=== PATIENT | male | born 1940 | race Caucasian/White ===

== ENCOUNTER 2016-07-08 09:47 | Day surgery (SDC) | payer MEDICARE, OTHER ==
[~2016-07-08 09:47] MED LIST: Cefuroxime 10 MG/ML SYRINGE EYELF SCH; Lidocaine 1% PF 2 ML SDV INJECT SCH; Pilocarpine 4% Ophth Soln 15 ML Bot EYELF SCH; Proparacaine 0.5% Ophth Soln 15 ML Bottle EYEBOTH SCH; Tetracaine 0.5% 2 ML Bottle EYELF SCH
[2016-07-08] MEDS: Polymyxin B/Trimethoprim 10 ML Bottle EYELF SCH ×3 (10:50→12:24)
[2016-07-08] MEDS: Brimonidine 0.2% Ophth Soln 5 ML Bottle EYELF SCH ×3 (10:54→12:24)
[2016-07-08] MEDS: Phenylephrine 2.5% Ophth Soln 2 ML Bot EYELF SCH ×5 (10:59→12:10)
--- NOTE | 2016-07-08 11:19 | PCM.PREANE ---
Preanesthetic Assessment - Anesthesia/Transfusion/Family Hx Anesthesia History: Prior Anesthesia Without Reaction Family History of Anesthesia Reaction: No - Review of Systems General: No Symptoms Pulmonary: No Symptoms Cardiovascular: No Symptoms Gastrointestinal: No symptoms Neurological: No Symptoms Other: Reports: Diabetes, Thyroid Problems - Physical Assessment NPO Status Date: 07/07/16 NPO Status Time: 23:00 O2 Sat by Pulse Oximetry: 98 Respiratory Rate: 16 Vital Signs: Last Vital Signs Temp 36.2 C 07/08/16 10:47 Pulse 59 L 07/08/16 10:47 Resp 16 07/08/16 10:47 BP 144/68 H 07/08/16 10:47 Pulse Ox 98 07/08/16 10:47 Height: 1.73 m Weight: 108.862 kg ASA Class: 2 Mental Status: Alert & Oriented x3 Airway Class: Mallampati = 2 Dentition: Reports: Normal Dentition Thyro-Mental Finger Breadths: 3 Mouth Opening Finger Breadths: 3 ROM/Head Extension: Full Lungs: Clear to auscultation, Normal respiratory effort, Decreased breath sounds (bilateral bases) Cardiovascular: Regular Rate, Regular Rhythm - Allergies Allergies/Adverse Reactions: Allergies Allergy/AdvReac Type Severity Reaction Status Date / Time No Known Allergies Allergy Verified 07/07/16 13:35 - Anesthesia Plan Beta Nic: Metoprolol Med Last Dose Date: 07/08/16 Med Last Dose Time: 08:00 - Acknowledgements Anesthesia Type Planned: MAC Pt an Appropriate Candidate for the Planned Anesthesia: Yes Alternatives and Risks of Anesthesia Discussed w Pt/Guardian: Yes Pt/Guardian Understands and Agrees with Anesthesia Plan: Yes PreAnesthesia Questionnaire HEENT History: Reports: Cataract Cardiovascular History: Reports: Arrhythmia (hx SVT-successful ablation), Hypertension, Other (see below) (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) Respiratory History: Reports: None Gastrointestinal History: Reports: None Genitourinary History: Reports: None Musculoskeletal History: Reports: None Neurological History: Reports: None Psychiatric History: Reports: None Endocrine/Metabolic History: Reports: Diabetes, type II, Hypothyroidism Hematologic History: Reports: None Immunologic History: Reports: None Oncologic (Cancer) History: Reports: None Dermatologic History: Reports: None - Infectious Disease History Infectious Disease History: Reports: None - Past Surgical History Head Surgeries/Procedures: Reports: None HEENT Surgical History: Reports: None Cardiovascular Surgical History: Reports: None, Cardiac Ablation (successful ablation for SVT) Respiratory Surgical History: Reports: None GI Surgical History: Reports: None, Hernia, inguinal Female Surgical History: Reports: None Male Surgical History: Reports: None Endocrine Surgical History: Reports: None Neurological Surgical History: Reports: None Musculoskeletal Surgical History: Reports: None Oncologic Surgical History: Reports: None Dermatological Surgical History: Reports: None - Past Imaging History Past Imaging History: Reports: None - HOME MEDS Home Medications: Home Meds Hydrochlorothiazide 25 mg PO DAILY 07/07/16 [History] Levothyroxine Sodium 137 mcg PO DAILY 07/07/16 [History] Metoprolol Succinate [Toprol Xl] 100 mg PO DAILY 07/07/16 [History] amLODIPine [Norvasc] 10 mg PO DAILY 07/07/16 [History] - CURRENT (IN HOUSE) MEDS Current Meds: Current Medications Brimonidine Tartrate (Alphagan 0.2% Ophth Soln) 0 ml EYELF ASDIRECTED GREGG Stop: 07/08/16 18:00 Last Admin: 07/08/16 10:54 Dose: 1 drop Cefuroxime Sodium (Zinacef) 0 mg EYELF ASDIRECTED GREGG Stop: 07/08/16 18:00 Lidocaine HCl (Xylocaine-Mpf 1%) 1 ml INJECT ASDIRECTED GREGG Stop: 07/08/16 18:00 Phenylephrine HCl (Tim-Synephrine 2.5% Ophth Soln) 0 ml EYELF ASDIRECTED GREGG Stop: 07/08/16 18:00 Last Admin: 07/08/16 11:10 Dose: 1 drop Pilocarpine HCl (Pilocar 4% Ophth Soln) 0 ml EYELF ASDIRECTED GREGG Stop: 07/08/16 18:00 Polymyxin/Trimethoprim Sulfate (Polytrim Ophth Soln) 0 ml EYELF ASDIRECTED GREGG Stop: 07/08/16 18:00 Last Admin: 07/08/16 10:50 Dose: 1 drop Proparacaine HCl (Proparacaine 0.5% Ophth Soln) 0 ml EYEBOTH ASDIRECTED GREGG Stop: 07/08/16 18:00 Tetracaine (Pontocaine 0.5% Ophth Drops) 0 ml EYELF ASDIRECTED GREGG Stop: 07/08/16 18:00 Tropicamide (Mydriacyl 1% Oph Soln) 0 ml EYELF ASDIRECTED GREGG Stop: 07/08/16 18:00 Last Admin: 07/08/16 11:04 Dose: 1 drop
--- NOTE | 2016-07-08 12:29 | PCM48HPAN ---
Post Anesthesia Note - EVALUATION WITHIN 48HRS OF ANESTHETIC Vital Signs in Normal Range: Yes Patient Participated in Evaluation: Yes Respiratory Function Stable: Yes Airway Patent: Yes Cardiovascular Function Stable: Yes Hydration Status Stable: Yes Pain Control Satisfactory: Yes Nausea and Vomiting Control Satisfactory: Yes Mental Status Recovered: Yes
[2016-07-08 13:35] VITALS: BP 134/63
== END 2016-07-08 12:52 | disposition home or self-care (01) ==
LOC: JD.SDS 09:47
PROVIDERS: ATTEND Ophthalmology
DX: H26.9 Unspecified cataract (principal); I10 Essential (primary) hypertension; E07.9 Disorder of thyroid, unspecified; Z98.890 Other specified postprocedural states; Z79.899 Other long term (current) drug therapy; E03.9 Hypothyroidism, unspecified; E11.22 Type 2 diabetes mellitus with diabetic chronic kidney disease; N18.3 Chronic kidney disease, stage 3 (moderate)
CPT/HCPCS: 36415; 66984; 84443; A9270; J0697; V2632

== ENCOUNTER 2016-08-05 07:47 | Day surgery (SDC) | payer MEDICARE, OTHER ==
[2016-08-05] MEDS: Polymyxin B/Trimethoprim 10 ML Bottle EYERT SCH ×3 (07:58→09:47)
[2016-08-05] MEDS ORDERED: Lidocaine 1% PF 2 ML SDV INJECT SCH (08:00)
[2016-08-05] MEDS ORDERED: Cefuroxime 10 MG/ML SYRINGE EYERT SCH (08:00)
[2016-08-05] MEDS ORDERED: Pilocarpine 4% Ophth Soln 15 ML Bot EYERT SCH (08:00)
[2016-08-05] MEDS: Brimonidine 0.2% Ophth Soln 5 ML Bottle EYERT SCH ×3 (08:03→09:47)
--- NOTE | 2016-08-05 08:06 | PCM.PREANE ---
Preanesthetic Assessment - Anesthesia/Transfusion/Family Hx Anesthesia History: Prior Anesthesia Without Reaction Family History of Anesthesia Reaction: No Transfusion History: No Prior Transfusion(s) - Review of Systems General: No Symptoms Pulmonary: No Symptoms Cardiovascular: Other (mini heart attacks in H&P, pt denies, hx of SVT with ablation, no symptoms since) Gastrointestinal: No symptoms Neurological: No Symptoms Other: Reports: Diabetes, Thyroid Problems - Physical Assessment NPO Status Date: 08/04/16 NPO Status Time: 22:00 Pulse: 68 O2 Sat by Pulse Oximetry: 97 Respiratory Rate: 16 Blood Pressure: 117/67 Height: 1.7 m Weight: 108.862 kg ASA Class: 2 Mental Status: Alert & Oriented x3 Airway Class: Mallampati = 2 Dentition: Reports: Normal Dentition (3) Thyro-Mental Finger Breadths: 3 Mouth Opening Finger Breadths: 3 ROM/Head Extension: Full Lungs: Clear to auscultation, Normal respiratory effort Cardiovascular: Regular Rate, Regular Rhythm - Allergies Allergies/Adverse Reactions: Allergies Allergy/AdvReac Type Severity Reaction Status Date / Time No Known Allergies Allergy Verified 08/04/16 12:37 - Blood Blood Available: No Product(s) Available: None - Anesthesia Plan Pre-Op Medication Ordered: None Beta Nic: Metoprolol Med Last Dose Date: 08/05/16 Med Last Dose Time: 06:45 - Acknowledgements Anesthesia Type Planned: MAC Pt an Appropriate Candidate for the Planned Anesthesia: Yes Alternatives and Risks of Anesthesia Discussed w Pt/Guardian: Yes Pt/Guardian Understands and Agrees with Anesthesia Plan: Yes PreAnesthesia Questionnaire HEENT History: Reports: Cataract Cardiovascular History: Reports: Arrhythmia (hx SVT-successful ablation), Hypertension, Other (See Below) (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) Respiratory History: Reports: None Gastrointestinal History: Reports: None Genitourinary History: Reports: None Musculoskeletal History: Reports: None Neurological History: Reports: None Psychiatric History: Reports: None Endocrine/Metabolic History: Reports: Diabetes, Type II, Hypothyroidism Hematologic History: Reports: None Immunologic History: Reports: None Oncologic (Cancer) History: Reports: None Dermatologic History: Reports: None - Infectious Disease History Infectious Disease History: Reports: None - Past Surgical History Head Surgeries/Procedures: Reports: None HEENT Surgical History: Reports: None Cardiovascular Surgical History: Reports: None, Cardiac Ablation (successful ablation for SVT) Respiratory Surgical History: Reports: None GI Surgical History: Reports: None, Hernia, Inguinal Female Surgical History: Reports: None Male Surgical History: Reports: None Endocrine Surgical History: Reports: None Neurological Surgical History: Reports: None Musculoskeletal Surgical History: Reports: None Oncologic Surgical History: Reports: None Dermatological Surgical History: Reports: None - Past Imaging History Past Imaging History: Reports: None - HOME MEDS Home Medications: Home Meds Hydrochlorothiazide 25 mg PO DAILY 07/07/16 [History] Levothyroxine Sodium 137 mcg PO DAILY 07/07/16 [History] Metoprolol Succinate [Toprol Xl] 100 mg PO DAILY 07/07/16 [History] amLODIPine [Norvasc] 10 mg PO DAILY 07/07/16 [History] Valsartan 320 mg PO DAILY 08/04/16 [History] - CURRENT (IN HOUSE) MEDS Current Meds: Current Medications Brimonidine Tartrate (Alphagan 0.2% Oph Soln) 0 ml EYERT ASDIRECTED GREGG Stop: 08/05/16 18:00 Cefuroxime Sodium (Zinacef) 0 mg EYERT ASDIRECTED GREGG Stop: 08/05/16 18:00 Lidocaine HCl (Xylocaine-Mpf 1%) 1 ml INJECT ASDIRECTED GREGG Stop: 08/05/16 18:00 Phenylephrine HCl (Tim-Synephrine 2.5% Ophth Soln) 0 ml EYERT ASDIRECTED GREGG Stop: 08/05/16 18:00 Pilocarpine HCl (Pilocar 4% Ophth Soln) 0 ml EYERT ASDIRECTED GREGG Stop: 08/05/16 18:00 Polymyxin/Trimethoprim Sulfate (Polytrim Ophth Soln) 0 ml EYERT ASDIRECTED GREGG Stop: 08/05/16 18:00 Last Admin: 08/05/16 07:58 Dose: 1 drop Tetracaine (Pontocaine 0.5% Oph Drops) 0 ml EYERT ASDIRECTED GREGG Stop: 08/05/16 18:00 Tropicamide (Mydriacyl 1% Oph Soln) 0 ml EYERT ASDIRECTED GREGG Stop: 08/05/16 18:00
[2016-08-05] MEDS: Phenylephrine 2.5% Ophth Soln 2 ML Bot EYERT SCH ×5 (08:08→09:31)
[2016-08-05] MEDS: Tetracaine 0.5% 2 ML Bottle EYERT SCH ×2 (09:20→09:40)
[2016-08-05 10:00] VITALS: BP 121/66
== END 2016-08-05 09:50 | disposition home or self-care (01) ==
LOC: JD.SDS 07:47
PROVIDERS: ATTEND Ophthalmology
DX: H25.811 Combined forms of age-related cataract, right eye (principal); H02.831 Dermatochalasis of right upper eyelid; H02.834 Dermatochalasis of left upper eyelid; H35.363 Drusen (degenerative) of macula, bilateral; H35.3131 Nonexudative age-related macular degeneration, bilateral, early dry stage; E11.9 Type 2 diabetes mellitus without complications; I25.2 Old myocardial infarction; I47.1 Supraventricular tachycardia; I10 Essential (primary) hypertension; Z98.42 Cataract extraction status, left eye; Z96.1 Presence of intraocular lens; Z79.899 Other long term (current) drug therapy
CPT/HCPCS: 66984; A9270; C1780; J0697

== ENCOUNTER 2018-04-14 13:02 | Emergency (ER) | payer MEDICARE, OTHER ==
[2018-04-14 13:12] VITALS: BP 137/70
--- NOTE | 2018-04-14 14:50 | EDM.PDOC ---
ED HPI GENERAL MEDICAL PROBLEM - General Chief Complaint: Respiratory Problem Stated Complaint: CHEST PAIN Time Seen by Provider: 04/14/18 14:30 Source of Information: Reports: Patient, Provider (Melinda Soto), RN Notes Reviewed History Limitations: Reports: No Limitations - History of Present Illness INITIAL COMMENTS - FREE TEXT/NARRATIVE: The patient is sent over from the clinic for additional workup. He saw his PCP, Melinda Soto, earlier today, with a complaint of dyspnea on exertion over the past 1 week or so, getting worse. He also has a slight, occasional dry cough over the past few days. No recent fever. No recent wheezing. No orthopnea. No associated chest pain or palpitations. No prior similar symptoms. The patient has not tried any home remedies or [id number] medicines to try to treat his symptoms. Workup done in the clinic included a CBC, CMP, D-dimer, troponin, BNP, TSH, and ECG. The patient's WBC count is elevated at 15.53. The patient's BUN/Cr are elevated at 26/2.4. His blood glucose is elevated at 150. The patient's D-dimer is substantially elevated at 5.51. The patient's troponin is at the upper limits of normal of 0.059. The patient's BNP is mildly elevated at 767. The patient's TSH is elevated at 5.966. The patient's ECG, which was sent to me to be read, demonstrates a normal sinus rhythm at [address] depressions in V2 and V3, concerning for posterior infarct, however, there are no ST segment shifts in the inferior leads and there are no R waves in V1. The R waves in V2 and V3 are within normal limits. Posterior leads were not performed. The patient states that he noticed that he had some left lower extremity swelling about 2 days ago. Here in the ED, the patient's initial oxygen saturation was noted to be 90% on room air, however, this was with a waveform correlation. With good correlation, his oxygen saturation is 98% on room air. The patient's PCP is Melinda Soto. The patient's [employer] Buffer is Dr. Gee. - Related Data Allergies Allergy/AdvReac Type Severity Reaction Status Date / Time No Known Allergies Allergy Verified 04/14/18 13:12 Home Meds: Home Meds Hydrochlorothiazide 25 mg PO DAILY 07/07/16 [History] Levothyroxine Sodium 137 mcg PO DAILY 07/07/16 [History] Metoprolol Succinate [Toprol Xl] 100 mg PO DAILY 07/07/16 [History] amLODIPine [Norvasc] 10 mg PO DAILY 07/07/16 [History] Valsartan 320 mg PO DAILY 08/04/16 [History] Apixaban [Eliquis] 10 mg PO Q12H #6 tablet 04/14/18 [Rx] Past Medical History HEENT History: Reports: Cataract Cardiovascular History: Reports: Arrhythmia (SVT, s/p ablation), Hypertension Genitourinary History: Reports: BPH, Diabetic Nephropathy Endocrine/Metabolic History: Reports: Diabetes, Type II, Hypothyroidism, Obesity /BMI 30+ - Past Surgical History Cardiovascular Surgical History: Reports: Cardiac Ablation (for SVT, around 2011 ), Other (See Below) (Coronary angiogram 2002, 2007. Both clean.) GI Surgical History: Reports: Hernia, Inguinal - Past Imaging History Past Imaging History: Reports: None Social & Family History - Tobacco Use Smoking Status *Q: Never Smoker Second Hand Smoke Exposure: No - Caffeine Use Caffeine Use: Reports: Coffee - Alcohol Use Alcohol Use History: Yes Alcohol Use Frequency: Rarely - Recreational Drug Use Recreational Drug Use: No - Living Situation & Occupation Living situation: Reports: , with Spouse Occupation: Employed ([employer]) ED ROS GENERAL - Review of Systems Review Of Systems: ROS reveals no pertinent complaints other than HPI. ED EXAM, GENERAL - Physical Exam Exam: See Below Exam Limited By: No Limitations General Appearance: Alert, WD/WN, No Apparent Distress Eye Exam: Bilateral Eye: EOMI, Normal Inspection Ears: Normal External Exam, Hearing Grossly Normal Nose: Normal Inspection Throat/Mouth: Normal Inspection, Normal Lips, Normal Voice, No Airway Compromise Head: Atraumatic, Normocephalic Neck: Normal Inspection, Full Range of Motion Respiratory/Chest: No Respiratory Distress, Lungs Clear, Normal Breath Sounds, No Accessory Muscle Use. No: Decreased Breath Sounds, Crackles, Rhonchi, Wheezing, Prolonged Expiration Cardiovascular: Normal Peripheral Pulses, Regular Rate, Rhythm, No Gallop, No JVD, No Murmur, No Rub Peripheral Pulses: 4+: Radial (L), Radial (R) GI/Abdominal: Normal Bowel Sounds, Soft, Non-Tender, No Organomegaly, No Distention, No Abnormal Bruit, No Mass, Other (Obese) (Male) Exam: Deferred Rectal (Males) Exam: Deferred Back Exam: Normal Inspection, Full Range of Motion, NT Extremities: Normal Inspection, Normal Range of Motion, Normal Capillary Refill , Other (1-2+ pitting pretibial edema bialteral lower extremities) Neurological: Alert, Oriented, Normal Cognition, No Motor/Sensory Deficits Psychiatric: Normal Affect Skin Exam: Warm, Dry, Intact, Normal Color, No Rash Course - Vital Signs Last Recorded V/S: Last Vital Signs Temp 36.6 C 04/14/18 13:08 Pulse 90 04/14/18 13:08 Resp 20 04/14/18 13:08 BP 137/70 04/14/18 13:08 Pulse Ox 90 L 04/14/18 13:08 - Orders/Labs/Meds Orders: Active Orders 24 hr Category Date Time Status Sodium Chloride 0.9% [Normal Saline] 1,000 ml Med 04/14/18 15:00 Active IV ASDIRECTED Sodium Chloride 0.9% [Normal Saline] 100 ml Med 04/14/18 15:00 Active IV ASDIRECTED Sodium Chloride 0.9% [Saline Flush] Med 04/14/18 14:59 Active 10 ml FLUSH ONETIME PRN Medication Orders Sodium Chloride (Normal Saline) 1,000 mls @ 150 mls/hr IV ASDIRECTED GREGG Last Admin: 04/14/18 15:57 Dose: 150 mls/hr Sodium Chloride (Normal Saline) 100 mls @ 80 mls/hr IV ASDIRECTED GREGG Last Admin: 04/14/18 15:12 Dose: 80 mls/hr Sodium Chloride (Saline Flush) 10 ml FLUSH ONETIME PRN PRN Reason: KEEP VEIN OPEN Last Admin: 04/14/18 15:12 Dose: 10 ml Labs: Laboratory Tests 04/14/18 Range/Units 15:00 PT 10.7 (9.5-12.1) SECONDS INR 0.98 APTT 24 (24-31) SECONDS Meds: Medications Generic Name Dose Route Start Last Admin Trade Name Freq PRN Reason Stop Dose Admin Sodium Chloride 1,000 mls @ 150 mls/hr 04/14/18 15:00 04/14/18 15:57 Normal Saline IV 150 mls/hr ASDIRECTED GREGG Administration Sodium Chloride 100 mls @ 80 mls/hr 04/14/18 15:00 04/14/18 15:12 Normal Saline IV 80 mls/hr ASDIRECTED GREGG Administration Sodium Chloride 10 ml 04/14/18 14:59 04/14/18 15:12 Saline Flush FLUSH 10 ml ONETIME PRN Administration KEEP VEIN OPEN Discontinued Medications Generic Name Dose Route Start Last Admin Trade Name Murphyq PRN Reason Stop Dose Admin Apixaban 10 mg 04/14/18 16:32 04/14/18 17:03 Eliquis PO 04/14/18 16:33 10 mg ONETIME STA Administration Iopamidol 100 ml 04/14/18 14:59 04/14/18 15:12 [id number] (76%) IVPUSH 04/14/18 15:00 100 ml ONETIME ONE Administration - Re-Assessments/Exams Free Text/Narrative Re-Assessment/Exam: 04/14/18 14:52 With the patient's history of worsening dyspnea on exertion, slight dry cough, and left lower extremity swelling a couple of days ago, I'm concerned about a PE. Blood work obtained earlier today at Ms. Soto's office included a CBC, CMP, D-dimer, troponin, BNP, TSH, and ECG. The patient's d-dimer is substantially elevated at 5.51, and while it is true that the patient has chronic renal insufficiency with a creatinine today of 2.4, his d-dimer is higher than we would expect for that degree of renal insufficiency. Despite the patient's renal insufficiency, I have no choice but to recommend a CT angiogram of the chest to evaluate for PE. I advised the patient that his renal function will almost certainly worsen for the next week, after which it should return to its baseline. During that week, however, the patient would need to have not only his renal function monitored, but his electrolytes as well, as is possible that his worsening renal function could precipitate hyperkalemia. The patient agreed to proceed with the CT angiogram. I have ordered IV fluid. I will also order coags. 04/14/18 16:09 CT angiogram of the chest is read by Dr. Billy as: 1. Extensive pulmonary emboli on both sides of the chest with findings suspicious for early right ventricular strain. 2. Other incidental findings. 04/14/18 16:[address] Camacho here in the ED. Because the patient does not require supplemental oxygen, she does not see a reason to admit the patient to the hospital. The patient will be started on oral Eliquis, 10 mg po BID x 7 days , then 5 mg po BID thereafter. Eliquis was chosen because it is not affected by renal function. Xarelto is possibly a choice, but the patient's creatinine clearance was not calculated. Case then discussed with Melinda Soto, at 16:29. I will have the patient follow up in her clinic this coming 04/16/2018, to check a BMP. She stated that someone from their office will call the patient tomorrow to make the appointment. 04/14/18 16:36 Notified that the patient is to present to the lab for a hypercoaguable workup at 10:30 Thursday morning, 04/16/2018, then follow-up with Sonal Morris at 11:30. 04/14/18 16:59 Test results and the plan of action discussed with the patient and his daughter. Since the patient will be following up with Ms. Morris Thursday morning , and other anticoagulation options are available, I will write for Eliquis for only 3 doses. They can then decide what long-term anticoagulant they want him on at that time. In the meantime, I would like the patient to remain adequately hydrated. The appointment for the blood draw and follow-up with Alexandra on Thursday was relayed to the patient and his daughter. Departure - Departure Time of Disposition: 17:00 Disposition: Home, Self-Care 01 Condition: Fair Clinical Impression: Pulmonary thromboembolism - Discharge Information *PRESCRIPTION DRUG MONITORING PROGRAM REVIEWED*: Not Applicable *COPY OF PRESCRIPTION DRUG MONITORING REPORT IN PATIENT SAILAJA: Not Applicable Referrals: Melinda Soto NP [Primary Care Provider] - Sonal Morris PA [Physician Pediatrician Active Practice] - Forms: ED Department Discharge Additional Instructions: You were seen in the emergency room for shortness of breath with exertion for over a week, associated with an occasional dry cough. Workup in the ER included a CT angiogram of your chest, and some blood work. Your workup found that you have multiple blood clots in your lungs, a condition known as pulmonary emboli. You have been started on the blood thinner medicine Eliquis. A prescription for 3 doses of Eliquis has been sent to the Pharmacy, located at [address] [place] [address]. Take 2 tablets (10 mg) of Eliquis every 12 hours, starting tomorrow morning, , 04/15/2018, as prescribed. Because you received iodinated contrast in the ER, your chronic kidney condition will worsen, for about a week. This can have consequences, such as high potassium in your blood. Stay adequately hydrated. Try to avoid high-potassium foods, such as potato skins, tomatoes, spinach, brussels sprouts, cantaloupe, and bananas. You are to present to the lab at 10:30 Thursday morning, 04/16/2017, for a blood draw. You are then to follow-up with Sonal Morris in the clinic at 11:30 Thursday morning. It is important that you let Ms. Morris know at that time that you will be out of Eliquis. She can then decide what the long-term anticoagulant is best for you , and prescribe that. If Ms. Morris decides to keep you on Eliquis, you need to take 10 mg every 12 hours for a total of 1 week, then drop to 5 mg every 12 hours thereafter. The underlying cause of your blood clots is not known. Sometimes it is due to cancer. An outpatient evaluation for cancer should be undertaken. If any other problems, please do not hesitate to return to the ER. - My Orders Last 24 Hours: My Active Orders 04/14/18 14:59 Sodium Chloride 0.9% [Saline Flush] 10 ml FLUSH ONETIME PRN 04/14/18 15:00 Sodium Chloride 0.9% [Normal Saline] 1,000 ml IV ASDIRECTED Sodium Chloride 0.9% [Normal Saline] 100 ml IV ASDIRECTED - Assessment/Plan Last 24 Hours: My Active Orders 04/14/18 14:59 Sodium Chloride 0.9% [Saline Flush] 10 ml FLUSH ONETIME PRN 04/14/18 15:00 Sodium Chloride 0.9% [Normal Saline] 1,000 ml IV ASDIRECTED Sodium Chloride 0.9% [Normal Saline] 100 ml IV ASDIRECTED
[2018-04-14] MEDS ORDERED: Iopamidol 755 Mg/ML 100 ML Bottle IVPUSH ONE (14:59)
[2018-04-14] MEDS ORDERED: Sodium Chloride 0.9% 10 ML Syringe FLUSH PRN (14:59)
[2018-04-14] MEDS ORDERED: Sodium Chloride 0.9% 100 ML IV SCH (15:00)
[2018-04-14] MEDS ORDERED: Sodium Chloride 0.9% 1,000 ML IV SCH (15:00)
--- NOTE | 2018-04-14 16:04 | CT ---
CT chest Technique: Multiple axial sections through the chest were obtained. Intravenous contrast was utilized. Study has been performed as a pulmonary angiogram protocol. Comparison: Previous chest x-ray performed earlier on the same day (10:59 AM). Findings: Pulmonary arteries are well opacified. Numerous filling defects are seen within the segmental and subsegmental branches within the right and left lower lobe pulmonary arteries as well as within the upper lobe pulmonary arteries. Minimal bowing of the interventricular septum is seen which is felt compatible with early right ventricular strain. Small portion of the visualized upper abdominal structures are within normal limits. Mediastinum and hilar regions show no adenopathy or mass. No axillary adenopathy is seen. Mild atelectasis is noted within both lung bases as well as probable slight scarring along both paraspinal regions. No acute parenchymal change is otherwise seen. Bone window setting shows mild scattered endplate spurring within the spine. Impression: 1. Extensive pulmonary emboli on both sides of the chest with findings suspicious for early right ventricular strain. 2. Other incidental findings. Diagnostic code #5
[2018-04-14] MEDS ORDERED: Apixaban 5 MG Tab PO STA (16:32)
== END 2018-04-14 17:25 | disposition home or self-care (01) ==
LOC: JD.ED 13:02
DX: I26.99 Other pulmonary embolism without acute cor pulmonale (principal); I10 Essential (primary) hypertension; E11.21 Type 2 diabetes mellitus with diabetic nephropathy; E03.9 Hypothyroidism, unspecified; E66.9 Obesity, unspecified; Z79.899 Other long term (current) drug therapy
CPT/HCPCS: 36415; 71275; 85610; 85730; 96360; 99285; A9270; J7030; J7040; Q9967

== ENCOUNTER 2019-03-07 09:24 | Inpatient (IN) | payer MEDICARE, OTHER ==
[~2019-03-07 09:24] MED LIST changes: +Acetaminophen 325 MG Tab PO SCH; +Bisacodyl 5 MG Tab PO PRN; -Cefuroxime 10 MG/ML SYRINGE EYELF SCH; +HYDROmorphone 0.5 MG/0.5 ML Syringe IVPUSH PRN; +Lactated Ringers 1,000 ML IV SCH; -Lidocaine 1% PF 2 ML SDV INJECT SCH; +Lidocaine 1%/Sod Bicarbonate in NS 8.4% 1 ML Syringe IDERM PRN; +Naloxone 0.4 MG/ML SDV IVPUSH PRN; +Ondansetron 4 MG/2 ML SDV IVPUSH PRN; -Pilocarpine 4% Ophth Soln 15 ML Bot EYELF SCH; +Pregabalin 25 MG Cap PO SCH; -Proparacaine 0.5% Ophth Soln 15 ML Bottle EYEBOTH SCH; +Sennosides 8.6 MG Tab PO PRN; +Sodium Chloride 0.9% 10 ML Syringe FLUSH PRN; -Tetracaine 0.5% 2 ML Bottle EYELF SCH; +oxyCODONE ER 10 MG TAB.ER PO SCH
--- NOTE | 2019-03-07 10:15 | PCM.PREANE ---
Preanesthetic Assessment - Procedure Proposed Procedure: Left TKA - Anesthesia/Transfusion/Family Hx Anesthesia History: Prior Anesthesia Without Reaction Family History of Anesthesia Reaction: No Transfusion History: No Prior Transfusion(s) - Review of Systems General: No Symptoms Pulmonary: No Symptoms Cardiovascular: Dyspnea on Exertion Gastrointestinal: No Symptoms Neurological: No Symptoms Other: Reports: Thyroid Problems (hypothyroid) - Physical Assessment NPO Status Date: 03/06/19 NPO Status Time: 19:30 Vital Signs: Last Vital Signs Temp 37.0 C 03/07/19 09:35 Pulse 80 03/07/19 09:35 Resp 16 03/07/19 09:35 BP 143/67 H 03/07/19 09:35 Pulse Ox 96 03/07/19 09:35 Height: 1.7 m Weight: 114.759 kg ASA Class: 3 Mental Status: Alert & Oriented x3 Airway Class: Mallampati = 1 Dentition: Reports: Missing Tooth/Teeth, Caries Thyro-Mental Finger Breadths: 3 Mouth Opening Finger Breadths: 3 ROM/Head Extension: Full Lungs: Clear to Auscultation, Normal Respiratory Effort Cardiovascular: Regular Rate, Regular Rhythm - Lab Values: Laboratory Last Values MRSA (PCR) Negative 02/08/19 10:37 - Imaging/EKG Impressions: EKG NSR rate 64 - Allergies Allergies/Adverse Reactions: Allergies Allergy/AdvReac Type Severity Reaction Status Date / Time No Known Allergies Allergy Verified 03/04/19 15:07 - Blood Blood Available: No Product(s) Available: None - Anesthesia Plan Pre-Op Medication Ordered: Beta Nic Beta Nic: Metoprolol Med Last Dose Date: 03/07/19 Med Last Dose Time: 08:00 - Acknowledgements Anesthesia Type Planned: Spinal Pt an Appropriate Candidate for the Planned Anesthesia: Yes Alternatives and Risks of Anesthesia Discussed w Pt/Guardian: Yes Pt/Guardian Understands and Agrees with Anesthesia Plan: Yes PreAnesthesia Questionnaire HEENT History: Reports: Cataract, Other (See Below) Other HEENT History: dental infection Cardiovascular History: Reports: Hypertension, SOB on Exertion, Other (See Below ) Other Cardiovascular History: Claudication, History of Paroxysmal SVT with ablation, lower extremity swelling Respiratory History: Reports: PE, SOB Gastrointestinal History: Reports: Colon Polyp, GERD, Hemorrhoids Genitourinary History: Reports: BPH, Prostate Disorder, Other (See Below) Other Genitourinary History: Stage 3 Kidney Disease 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 Musculoskeletal History: Reports: Osteoarthritis Neurological History: Reports: None Psychiatric History: Reports: None Endocrine/Metabolic History: Reports: Diabetes, Type II, Hypothyroidism Hematologic History: Reports: None Immunologic History: Reports: None Oncologic (Cancer) History: Reports: None Dermatologic History: Reports: None - Infectious Disease History Infectious Disease History: Reports: None - Past Surgical History Head Surgeries/Procedures: Reports: None HEENT Surgical History: Reports: Cataract Surgery Cardiovascular Surgical History: Reports: Cardiac Ablation Other Cardiovascular Surgeries/Procedures: Catheter Ablation Respiratory Surgical History: Reports: None GI Surgical History: Reports: Colonoscopy, Other (See Below) Other GI Surgeries/Procedures: Hemorrhoidectomy, Umbilical Hernia Repair Female Surgical History: Reports: None Male Surgical History: Reports: None Endocrine Surgical History: Reports: None Neurological Surgical History: Reports: None Musculoskeletal Surgical History: Reports: None Oncologic Surgical History: Reports: None Dermatological Surgical History: Reports: None - Past Imaging History Past Imaging History: Reports: None - SUBSTANCE USE Smoking Status *Q: Never Smoker Tobacco Use Within Last Twelve Months: No Second Hand Smoke Exposure: No Days Per Week of Alcohol Use: 0 Number of Drinks Per Day: 0 Total Drinks Per Week: 0 Recreational Drug Use History: No - HOME MEDS Home Medications: Home Meds Hydrochlorothiazide 25 mg PO DAILY 07/07/16 [History] Levothyroxine Sodium 150 mcg PO DAILY 07/07/16 [History] Metoprolol Succinate [Toprol Xl] 100 mg PO DAILY 07/07/16 [History] Tamsulosin [Flomax] 0.4 mg PO BEDTIME 11/19/18 [History] Cholecalciferol (Vitamin D3) [Vitamin D3] 5,000 unit PO DAILY 03/04/19 [History] amLODIPine/Valsartan [Amlodipine-Valsartan 10-320 mg] 1 tab PO DAILY 03/04/19 [ History] - CURRENT (IN HOUSE) MEDS Current Meds: Current Medications Acetaminophen (Tylenol) 975 mg PO ONETIME GREGG Stop: 03/07/19 12:00 Last Admin: 03/07/19 10:01 Dose: 975 mg Apixaban (Eliquis) 2.5 mg PO BID GREGG Bisacodyl (Dulcolax) 5 mg PO DAILY PRN PRN Reason: Constipation Cyclobenzaprine HCl (Flexeril) 5 mg PO BID PRN PRN Reason: Spasms Docusate Sodium (Colace) 100 mg PO BID GREGG Famotidine (Pepcid) 20 mg PO Q12H GREGG Hydromorphone HCl (Dilaudid) 0.2 mg IVPUSH Q2H PRN PRN Reason: Pain (moderate 4-6) Lactated Ringer's (Ringers, Lactated) 1,000 mls @ 125 mls/hr IV ASDIRECTED GREGG Stop: 03/07/19 23:00 Cefazolin Sodium/Dextrose 2 gm (/ Premix) 50 mls @ 100 mls/hr IV Q8H GREGG Stop: 03/07/19 22:59 Lidocaine/Sodium Bicarbonate (Buffered Lidocaine 1% In Ns 8.4%) 0.25 ml IDERM ONETIME PRN PRN Reason: Prior to IV Start Stop: 03/07/19 18:00 Naloxone HCl (Narcan) 0.1 mg IVPUSH Q5M PRN PRN Reason: Oversedation Ondansetron HCl (Zofran) 4 mg IVPUSH Q6H PRN PRN Reason: Nausea/Vomiting Oxycodone HCl (Oxycontin) 10 mg PO ONETIME GREGG Stop: 03/07/19 16:00 Last Admin: 03/07/19 10:01 Dose: 10 mg Oxycodone/Acetaminophen (Percocet 325-5 Mg) 1 - 2 tab PO Q4H PRN PRN Reason: Pain Pregabalin (Lyrica) 50 mg PO ONETIME GREGG Stop: 03/07/19 12:00 Last Admin: 03/07/19 10:01 Dose: 50 mg Senna (Senna) 8.6 mg PO BID PRN PRN Reason: Constipation Sodium Chloride (Saline Flush) 10 ml FLUSH ASDIRECTED PRN PRN Reason: Keep Vein Open Stop: 03/07/19 18:00 Discontinued Medications Morphine Sulfate 8 mg/Epinephrine HCl 0.3 mg/Cefuroxime Sodium 750 mg/Sodium Chloride 27.9 ml 0 mg .XX ONETIME ONE Stop: 03/07/19 10:01
[2019-03-07] MEDS ORDERED: Propofol 200 MG/20 ML SDV ONE ×2 (10:35→12:21)
[2019-03-07] MEDS ORDERED: fentaNYL 100 MCG/2 ML SDV ONE (10:36)
[2019-03-07] MEDS ORDERED: Lidocaine 1% 4 ML ONE (10:37)
[2019-03-07] MEDS: Bupivacaine 0.25% 10 ML SDV ONE ×2 (11:02→13:05)
[2019-03-07] MEDS: ceFAZolin 1 GM Vial ONE ×2 (11:02→13:00)
[2019-03-07] MEDS: Morphine 8 MG, EPINEPHrine 0.3 MG, Cefuroxime 750 MG, Sodium Chloride 0.9% 27.9 ML ONE ×8 (11:03→13:04)
[2019-03-07] MEDS: Iodine/Sodium Iodide 2% Tincture 30 ML Bottle ONE ×2 (11:03→12:57)
[2019-03-07] MEDS: Vancomycin 1 GM SDV ONE ×2 (11:04→13:13)
[2019-03-07] MEDS ORDERED: Lactated Ringers 1,000 ML ONE (11:05)
[2019-03-07] MEDS ORDERED: Midazolam 1 MG/ML 2 ML SDV ONE (11:05)
[2019-03-07] MEDS ORDERED: Ropivacaine 0.5% 5 MG/ML 30 ML SDV ONE (11:23)
--- NOTE | 2019-03-07 13:18 | PCM.CONS ---
H&P History of Present Illness - General Date of Service: 03/07/19 Admit Problem/Dx: Admission Diagnosis/Problem Admission Diagnosis/Problem Osteoarthritis of knee Source of Information: Patient, Old Records, Provider, RN, RN Notes Reviewed History Limitations: Reports: No Limitations - History of Present Illness Initial Comments - Free Text/Narative: Alvaro Melton is a 78 yo male patient of Dr. Peters who is post-operative day 0 of left TKA. Hospital medicine was consulted for post-operative medical care of the following listed medical conditions. At this time he is resting comfortably in bed. Pain is controlled. He denies any chest pain, shortness of breath, palpitations, nausea, or vomiting. He carries a history of: PE on 03/2018 , Type II DM, SVT S/P cardiac ablation, BPH, HTN, Claudication, Hypothyroidism, Stage III CKD, Chronic SOB, Lower extremity edema, Hemorrhoids. He was never a smoker. He is a full code. His primary care provider is Eddi Atwood PA-C. - Related Data Allergies/Adverse Reactions: Allergies Allergy/AdvReac Type Severity Reaction Status Date / Time No Known Allergies Allergy Verified 03/04/19 15:07 Home Medications: Home Meds Hydrochlorothiazide 25 mg PO DAILY 07/07/16 [History] Levothyroxine Sodium 150 mcg PO DAILY 07/07/16 [History] Metoprolol Succinate [Toprol Xl] 100 mg PO DAILY 07/07/16 [History] Tamsulosin [Flomax] 0.4 mg PO BEDTIME 11/19/18 [History] Cholecalciferol (Vitamin D3) [Vitamin D3] 5,000 unit PO DAILY 03/04/19 [History] amLODIPine/Valsartan [Amlodipine-Valsartan 10-320 mg] 1 tab PO DAILY 03/04/19 [ History] Past Medical History HEENT History: Reports: Cataract, Other (See Below) Other HEENT History: dental infection Cardiovascular History: Reports: Hypertension, SOB on Exertion, Other (See Below ) Other Cardiovascular History: Claudication, History of Paroxysmal SVT with ablation, lower extremity swelling Respiratory History: Reports: PE, SOB Gastrointestinal History: Reports: Colon Polyp, GERD, Hemorrhoids Genitourinary History: Reports: BPH, Prostate Disorder, Other (See Below) Other Genitourinary History: Stage 3 Kidney Disease 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 Musculoskeletal History: Reports: Osteoarthritis Neurological History: Reports: None Psychiatric History: Reports: None Endocrine/Metabolic History: Reports: Diabetes, Type II, Hypothyroidism Hematologic History: Reports: None Immunologic History: Reports: None Oncologic (Cancer) History: Reports: None Dermatologic History: Reports: None - Infectious Disease History Infectious Disease History: Reports: None - Past Surgical History Head Surgeries/Procedures: Reports: None HEENT Surgical History: Reports: Cataract Surgery Cardiovascular Surgical History: Reports: Cardiac Ablation Other Cardiovascular Surgeries/Procedures: Catheter Ablation Respiratory Surgical History: Reports: None GI Surgical History: Reports: Colonoscopy, Other (See Below) Other GI Surgeries/Procedures: Hemorrhoidectomy, Umbilical Hernia Repair Female Surgical History: Reports: None Male Surgical History: Reports: None Endocrine Surgical History: Reports: None Neurological Surgical History: Reports: None Musculoskeletal Surgical History: Reports: None Oncologic Surgical History: Reports: None Dermatological Surgical History: Reports: None - Past Imaging History Past Imaging History: Reports: None Social & Family History - Tobacco Use Smoking Status *Q: Never Smoker Second Hand Smoke Exposure: No - Caffeine Use Caffeine Use: Reports: Coffee - Alcohol Use Days Per Week of Alcohol Use: 0 Number of Drinks Per Day: 0 Total Drinks Per Week: 0 - Recreational Drug Use Recreational Drug Use: No Drug Use in Last 12 Months: No - Living Situation & Occupation Living situation: Reports: , with Spouse Occupation: Employed ([employer]) H&P Review of Systems - Review of Systems: Review Of Systems: See Below General: Reports: No Symptoms. Denies: Fever, Chills HEENT: Reports: No Symptoms. Denies: Headaches, Sore Throat Pulmonary: Reports: No Symptoms. Denies: Shortness of Breath, Wheezing, Pleuritic Chest Pain Cardiovascular: Reports: No Symptoms. Denies: Chest Pain, Palpitations, Dyspnea on Exertion Gastrointestinal: Reports: No Symptoms. Denies: Abdominal Pain, Constipation, Diarrhea, Nausea, Vomiting Genitourinary: Reports: No Symptoms. Denies: Pain Musculoskeletal: Reports: Leg Pain (left) Skin: Reports: No Symptoms Psychiatric: Reports: No Symptoms. Denies: Confusion Neurological: Reports: No Symptoms. Denies: Pre-Existing Deficit, Difficulty Walking, Gait Disturbance Hematologic/Lymphatic: Reports: No Symptoms Immunologic: Reports: No Symptoms Exam - Exam Exam: See Below - Vital Signs Vital Signs: Last Vital Signs Temp 98.6 F 03/07/19 09:35 Pulse 80 03/07/19 09:35 Resp 16 03/07/19 09:35 BP 143/67 H 03/07/19 09:35 Pulse Ox 96 03/07/19 09:35 Weight: 253 lb - Exam Quality Assessment: DVT Prophylaxis General: Alert, Oriented, Cooperative. No: Mild Distress HEENT: Conjunctiva Clear, EACs Clear, EOMI, Hearing Intact, Mucosa Moist & [place] , Nares Patent, Posterior Pharynx Clear, PERRLA Neck: Supple, Trachea Midline Lungs: Clear to Auscultation, Normal Respiratory Effort Cardiovascular: Regular Rate, Regular Rhythm GI/Abdominal Exam: Normal Bowel Sounds, Soft, Non-Tender, No Distention, No Abnormal Bruit (Male) Exam: Deferred Rectal (Males) Exam: Deferred Back Exam: Normal Inspection, Full Range of Motion Extremities: Normal Capillary Refill, Leg Pain, Limited Range of Motion, Other ( Bandage in place on right leg. Bandage is dry and intact. Cooling pack in place. ) Peripheral Pulses: 2+: Radial (L), Radial (R), Dorsalis Pedis (L), Dorsalis Pedis (R) Skin: Warm, Dry, Intact Neurological: Cranial Nerves Intact (Grossly ) Neuro Extensive - Mental Status: Alert, Oriented x3, Normal Mood/Affect - Patient Data Lab Results Last 24 hrs: Laboratory Results - last 24 hr 03/07/19 Range/Units 10:05 POC Glucose 109 (83-110) mg/dL Sepsis Event Note - Evaluation Sepsis Screening Result: No Definite Risk - Focused Exam Vital Signs: Vital Signs Temp Pulse Resp BP Pulse Ox 03/07/19 09:35 98.6 F 80 16 143/67 H 96 Date Exam was Performed: 03/07/19 Time Exam was Performed: 15:40 Consult PN Assessment/Plan POD#: 0 Procedures: Procedures ANTINUCLEAR ANTIBODIES (01/11/18) ANTITHROMBIN III ACTIVITY (08/11/18) ASSAY OF BLOOD/URIC ACID (01/11/18) ASSAY OF NATRIURETIC PEPTIDE (04/14/18) ASSAY OF PARATHORMONE (01/11/18) ASSAY OF PREALBUMIN (02/09/19) ASSAY OF PROTEIN URINE (01/11/18) ASSAY OF SERUM ALBUMIN (02/09/19) ASSAY OF TROPONIN QUANT (04/14/18) ASSAY OF URINE CREATININE (01/11/18) ASSAY THYROID STIM HORMONE (08/11/18) BETA-2 GLYCOPROTEIN ANTIBODY (08/11/18) C-REACTIVE PROTEIN (02/09/19) CATARACT SURG W/IOL 1 STAGE (08/05/16) CLOT INHIBIT PROT C ACTIVITY (08/11/18) CLOT INHIBIT PROT S FREE (08/11/18) COLONOSCOPY AND BIOPSY (11/23/18) COLONOSCOPY W/LESION REMOVAL (11/23/18) COMPLETE CBC AUTOMATED (08/11/18) COMPLETE CBC W/AUTO DIFF WBC (02/09/19) COMPREHEN METABOLIC PANEL (08/11/18) CT ANGIOGRAPHY CHEST (04/14/18) DXA BONE DENSITY AXIAL (02/22/19) ECG MONIT/REPRT UP TO 48 HRS (04/16/18) ECG MONIT/REPRT UP TO 48 HRS (04/16/18) ELECTROCARDIOGRAM TRACING (02/09/19) EMERGENCY DEPT VISIT (04/14/18) F5 GENE (08/11/18) FIBRIN DEGRADATION QUANT (04/14/18) FLUORESCENT ANTIBODY TITER (01/11/18) GLYCOSYLATED HEMOGLOBIN TEST (02/09/19) HIV-1 AG IA (01/11/18) HYDRATION IV INFUSION INIT (04/14/18) IMMUNOASSAY QUANT NOS NONAB (01/11/18) LIPID PANEL (04/14/18) METABOLIC PANEL TOTAL CA (02/09/19) OFFICE/OUTPATIENT VISIT EST (02/09/19) OFFICE/OUTPATIENT VISIT EST (03/28/16) PROTEIN E-PHORESIS/URINE/CSF (01/11/18) PROTHROMBIN TIME (02/09/19) RENAL FUNCTION PANEL (01/11/18) ROUTINE VENIPUNCTURE (02/09/19) THROMBOPLASTIN TIME PARTIAL (04/14/18) TTE W/DOPPLER COMPLETE (04/19/18) UPR/LXTR ART STDY 3+ LVLS (04/19/18) UR ALBUMIN QUANTITATIVE (10/27/17) URINALYSIS AUTO W/SCOPE (01/11/18) US EXAM ABDO BACK WALL GRANGER (12/21/17) VASCULAR STUDY (12/21/17) VITAMIN D 25 HYDROXY (01/11/18) X-RAY EXAM CHEST 2 VIEWS (02/09/19) (1) S/P total knee arthroplasty SNOMED Code(s): 6669419954644, 217149373, 2779013882284 Code(s): Z96.659 - PRESENCE OF UNSPECIFIED ARTIFICIAL KNEE JOINT Priority: High Current Visit: Yes Qualifiers: Laterality: left Qualified Code(s): Z96.652 - Presence of left artificial knee joint (2) Osteoarthritis SNOMED Code(s): 447279156 Code(s): M19.90 - UNSPECIFIED OSTEOARTHRITIS, UNSPECIFIED SITE Priority: High Current Visit: Yes Qualifiers: Osteoarthritis location: knee Osteoarthritis type: primary Laterality: left Qualified Code(s): M17.12 - Unilateral primary osteoarthritis, left knee (3) Hx of pulmonary embolus SNOMED Code(s): 265018661 Code(s): Z86.711 - PERSONAL HISTORY OF PULMONARY EMBOLISM Priority: Medium Current Visit: No (4) History of supraventricular tachycardia SNOMED Code(s): 943191900600556 Code(s): Z86.79 - PERSONAL HISTORY OF OTHER DISEASES OF THE CIRCULATORY SYSTEM Priority: Medium Current Visit: No (5) History of radiofrequency ablation procedure for cardiac arrhythmia SNOMED Code(s): 560374455 Code(s): Z98.890 - OTHER SPECIFIED POSTPROCEDURAL STATES Priority: Medium Current Visit: No (6) Type II diabetes mellitus SNOMED Code(s): 75361170 Code(s): E11.9 - TYPE 2 DIABETES MELLITUS WITHOUT COMPLICATIONS Priority: Medium Current Visit: Yes Qualifiers: Diabetes mellitus exterminator helper insulin use: unspecified intermediate insulin use status Diabetes mellitus complication status: without complication Qualified Code(s): E11.9 - Type 2 diabetes mellitus without complications (7) BPH (benign prostatic hyperplasia) SNOMED Code(s): 985210087 Code(s): N40.0 - BENIGN PROSTATIC HYPERPLASIA WITHOUT LOWER URINRY TRACT SYMP Priority: Low Current Visit: No Qualifiers: Lower urinary tract symptom presence: unspecified whether lower urinary tract symptoms present Qualified Code(s): N40.0 - Benign prostatic hyperplasia without lower urinary tract symptoms (8) HTN (hypertension) SNOMED Code(s): 90440033 Code(s): I10 - ESSENTIAL (PRIMARY) HYPERTENSION Priority: Medium Current Visit: No Qualifiers: Hypertension type: unspecified Qualified Code(s): I10 - Essential (primary ) hypertension (9) Claudication SNOMED Code(s): 57188362 Code(s): I73.9 - PERIPHERAL VASCULAR DISEASE, UNSPECIFIED Priority: Low Current Visit: No (10) Hemorrhoids SNOMED Code(s): 96590893 Code(s): K64.9 - UNSPECIFIED HEMORRHOIDS Priority: Low Current Visit: No Qualifiers: Hemorrhoid type: unspecified Qualified Code(s): K64.9 - Unspecified hemorrhoids (11) Stage 3 chronic kidney disease SNOMED Code(s): 014615734 Code(s): N18.3 - CHRONIC KIDNEY DISEASE, STAGE 3 (MODERATE) Priority: Medium Current Visit: No (12) Hypothyroid SNOMED Code(s): 65113841 Code(s): E03.9 - HYPOTHYROIDISM, UNSPECIFIED Priority: Low Current Visit : No Qualifiers: Hypothyroidism type: unspecified Qualified Code(s): E03.9 - Hypothyroidism , unspecified (13) Chronic shortness of breath SNOMED Code(s): 440218793 Code(s): R06.02 - SHORTNESS OF BREATH Priority: Medium Current Visit: No (14) Lower extremity edema SNOMED Code(s): 875228458 Code(s): R60.0 - LOCALIZED EDEMA Priority: Low Current Visit: No Problem List Initiated/Reviewed/Updated: Yes Plan: I/P: Acute: S/P left total knee arthroplasty - post-operative day 0 -DVT prophylaxis and pain management per primary care team -PT/OT -IS/RT -Monitor oxygen saturation -Titrate oxygen as needed -Home medications reviewed -Vital signs stable -Monitor labs -Pre-operative Hgb was 15.5 -Pre-operative GFR was 31 -Pre-operative creatinine was 2.1 -Pre-operative BUN was 33 -Pre-operative WBC was 9.61 with CRP WNL -Pre-operative A1C was 5.9% Osteoarthritis of left knee -Pain management per primary care team 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 His PCP is Eddi Atwood PA-C Thank you for allowing us to participate in the care of this patient!! Requesting Provider: Dr. Peters Date Consult Requested: 03/07/19 Patient History Reviewed: Yes Admission H&P Reviewed: Yes
--- NOTE | 2019-03-07 13:42 | PCM.POSTAN ---
POST ANESTHESIA ASSESSMENT - MENTAL STATUS Mental Status: Alert - VITAL SIGNS Vital Signs: Last Vital Signs Temp 37.0 C 03/07/19 09:35 Pulse 80 03/07/19 09:35 Resp 16 03/07/19 09:35 BP 143/67 H 03/07/19 09:35 Pulse Ox 96 03/07/19 09:35 - RESPIRATORY Respiratory Status: Respiratory Rate WNL, Airway Patent, O2 Saturation Stable, Supplemental Oxygen - CARDIOVASCULAR CV Status: Pulse Rate WNL, Blood Pressure Stable - GASTROINTESTINAL GI Status: No Symptoms - PAIN Pain Score: 0 - POST OP HYDRATION Hydration Status: Adequate & Stable
[2019-03-07] MEDS ORDERED: Ondansetron 4 MG/2 ML SDV IVPUSH PRN (13:43)
[2019-03-07] MEDS ORDERED: ePHEDrine 50 MG/ML SDV IVPUSH PRN (13:43)
--- NOTE | 2019-03-07 13:57 | PCM.SN ---
- Free Text/Narrative Note: Left selective femoral nerve block at the adductor canal for post-procedure pain control under US guidance requested by Dr. Peters. Time Out: 1340 Start: 1345 End: 1347 Chart reviewed. Consent signed. Questions answered. Appropriate monitors applied. Time out performed. Left mid-shaft femur identified with ultrasound, scanning medially of femur, the femoral artery in the adductor canal visualized , and the femoral nerve located laterally to the artery. The skin was prepped lateral to the ultrasound probe with chlorahexadine times two. The 21ga 4 insulated block needle was inserted under direct ultrasound guidance into the adductor canal. 20mL of 0.5% ropivacaine with 1:200,000 epinephrine was injected circumferentially around the nerve with intermittent negative aspiration noted. Patient tolerated the procedure well. Sterile technique noted along with sterile gloves, mask, and sterile probe cover. See picture on progress note and vital signs on nurses notes. Block completed in PACU. Johnny Avendaño CRNA
--- NOTE | 2019-03-07 14:35 | CR ---
Left knee: AP and lateral views of the left knee were obtained. Comparison: No prior knee exam. Knee prosthesis is seen. Components are aligned. Soft tissue air is noted from surgical procedure. Underlying bony structures are intact. Impression: 1. Satisfactory postoperative radiographic appearance recently placed left knee prosthesis. Diagnostic code #2 This report was dictated in [place] Standard Time
[2019-03-07] MEDS ORDERED: Sodium Chloride 0.9% 1,000 ML IV SCH (14:45)
[2019-03-07] MEDS: Acetaminophen/oxyCODONE 325-5 MG Tab PO PRN ×2 (15:27→20:40)
[2019-03-07] MEDS: Sodium Chloride 0.9% 1,000 ML IV SCH (17:07)
[2019-03-07] MEDS: Insulin Lispro 100 Units/ML 3 ML Vial SUBCUT SCH ×2 (17:40→22:03)
[2019-03-07] MEDS: Cyclobenzaprine 10 MG Tab PO PRN (18:07)
[2019-03-07] MEDS: ceFAZolin 2 GM in Premix Bag 1 BAG IV SCH (20:38)
[2019-03-07] MEDS: Docusate Sodium 100 MG Cap PO SCH (20:41)
[2019-03-07] MEDS: Tamsulosin 0.4 MG Cap.ER PO SCH (20:41)
[2019-03-07] MEDS: Famotidine 20 MG Tab PO SCH (20:41)
[2019-03-08] MEDS: Sodium Chloride 0.9% 1,000 ML IV SCH (00:59)
[2019-03-08] MEDS: Acetaminophen/oxyCODONE 325-5 MG Tab PO PRN ×6 (00:59→23:51)
[2019-03-08] MEDS: Levothyroxine 50 MCG Tab PO SCH (06:24)
[2019-03-08] MEDS: ceFAZolin 2 GM in Premix Bag 1 BAG IV SCH ×3 (06:24→12:13)
[2019-03-08] MEDS: Insulin Lispro 100 Units/ML 3 ML Vial SUBCUT SCH ×4 (06:48→21:44)
--- NOTE | 2019-03-08 07:05 | PCM.CONSN ---
- General Info Date of Service: 03/08/19 Admission Dx/Problem (Free Text): Admission Diagnosis/Problem Admission Diagnosis/Problem Osteoarthritis of knee Functional Status: Reports: Tolerating Diet, Ambulating (somewhat), Urinating, Incentive Spirometry. Denies: Pain Controlled, New Symptoms - Review of Systems General: Reports: No Symptoms. Denies: Fever, Chills HEENT: Reports: No Symptoms. Denies: Headaches, Sore Throat Pulmonary: Reports: No Symptoms. Denies: Shortness of Breath, Pleuritic Chest Pain, Cough, Sputum, Wheezing Cardiovascular: Reports: No Symptoms. Denies: Chest Pain, Palpitations, Dyspnea on Exertion Gastrointestinal: Reports: No Symptoms. Denies: Abdominal Pain, Constipation, Diarrhea, Nausea, Vomiting Genitourinary: Reports: No Symptoms. Denies: Pain Musculoskeletal: Reports: Leg Pain (severe) Skin: Reports: No Symptoms. Denies: Cyanosis Neurological: Reports: Difficulty Walking, Weakness, Gait Disturbance. Denies: Confusion, Pre-Existing Deficit Psychiatric: Reports: No Symptoms - Patient Data Vitals - Most Recent: Last Vital Signs Temp 98.4 F 03/08/19 04:21 Pulse 74 03/08/19 04:21 Resp 16 03/08/19 04:21 BP 139/77 03/08/19 04:21 Pulse Ox 94 L 03/08/19 04:21 Weight - Most Recent: 253 lb I&O - Last 24 Hours: Intake & Output 03/07/19 03/08/19 03/08/19 22:59 06:59 14:59 Intake Total 2350 Output Total 875 Balance 1475 Lab Results Last 24 Hours: Laboratory Results - last 24 hr 03/07/19 03/07/19 03/07/19 Range/Units 10:05 17:02 21:44 WBC (4.23-9.07) K/mm3 RBC (4.63-6.08) M/mm3 Hgb (13.7-17.5) gm/dl Hct (40.1-51.0) % MCV (79.0-92.2) fl MCH (25.7-32.2) pg MCHC (32.2-35.5) g/dl RDW Std Deviation (35.1-43.9) fL Plt Count (163-337) K/mm3 MPV (9.4-12.3) fl Sodium (136-145) mEq/L Potassium (3.5-5.1) mEq/L Chloride (98-107) mEq/L Carbon Dioxide (21-32) mEq/L Anion Gap (5-15) BUN (7-18) mg/dL Creatinine (0.7-1.3) mg/dL Est Cr Clr Drug Dosing mL/min Estimated GFR (MDRD) (>60) mL/min BUN/Creatinine Ratio (14-18) Glucose (83-115) mg/dL POC Glucose 109 113 H 118 H (83-110) mg/dL Calcium (8.5-10.1) mg/dL Total Bilirubin (0.2-1.0) mg/dL AST (15-37) U/L ALT (16-63) U/L Alkaline Phosphatase (46-116) U/L Total Protein (6.4-8.2) g/dl Albumin (3.4-5.0) g/dl Globulin gm/dL Albumin/Globulin Ratio (1-2) 03/08/19 03/08/19 03/08/19 Range/Units 04:27 04:27 06:28 WBC 8.39 (4.23-9.07) K/mm3 RBC 4.30 L (4.63-6.08) M/mm3 Hgb 13.1 L D (13.7-17.5) gm/dl Hct 39.8 L (40.1-51.0) % MCV 92.6 H (79.0-92.2) fl MCH 30.5 (25.7-32.2) pg MCHC 32.9 (32.2-35.5) g/dl RDW Std Deviation 44.2 H (35.1-43.9) fL Plt Count 133 L (163-337) K/mm3 MPV 10.7 (9.4-12.3) fl Sodium 137 (136-145) mEq/L Potassium 4.0 (3.5-5.1) mEq/L Chloride 104 (98-107) mEq/L Carbon Dioxide 24 (21-32) mEq/L Anion Gap 13.0 (5-15) BUN 25 H (7-18) mg/dL Creatinine 1.8 H (0.7-1.3) mg/dL Est Cr Clr Drug Dosing 32.13 mL/min Estimated GFR (MDRD) 37 (>60) mL/min BUN/Creatinine Ratio 13.9 L (14-18) Glucose 106 (83-115) mg/dL POC Glucose 100 (83-110) mg/dL Calcium 8.5 (8.5-10.1) mg/dL Total Bilirubin 0.7 (0.2-1.0) mg/dL AST 23 (15-37) U/L ALT 36 (16-63) U/L Alkaline Phosphatase 46 (46-116) U/L Total Protein 6.0 L (6.4-8.2) g/dl Albumin 2.8 L (3.4-5.0) g/dl Globulin 3.2 gm/dL Albumin/Globulin Ratio 0.9 L (1-2) Med Orders - Current: Current Medications Amlodipine Besylate (Norvasc) 10 mg PO DAILY [facility] Apixaban (Eliquis) 2.5 mg PO BID [facility] Bisacodyl (Dulcolax) 5 mg PO DAILY PRN PRN Reason: Constipation Cholecalciferol (Vitamin D3) 5,000 unit PO DAILY [facility] Cyclobenzaprine HCl (Flexeril) 5 mg PO BID PRN PRN Reason: Spasms Last Admin: 03/07/19 18:07 Dose: 5 mg Docusate Sodium (Colace) 100 mg PO BID [facility] Last Admin: 03/07/19 20:41 Dose: 100 mg Famotidine (Pepcid) 20 mg PO Q12H [facility] Last Admin: 03/07/19 20:41 Dose: 20 mg Hydromorphone HCl (Dilaudid) 0.2 mg IVPUSH Q2H PRN PRN Reason: Pain (moderate 4-6) Last Admin: 03/07/19 22:08 Dose: 0.2 mg Cefazolin Sodium/Dextrose 2 gm (/ Premix) 50 mls @ 100 mls/hr IV Q8H [facility] Stop: 03/08/19 13:29 Last Admin: 03/08/19 06:24 Dose: 100 mls/hr Sodium Chloride (Normal Saline) 1,000 mls @ 125 mls/hr IV ASDIRECTED [facility] Last Admin: 03/08/19 00:59 Dose: 125 mls/hr Insulin Human Lispro (Humalog) 0 unit SUBCUT QIDACANDBED [facility]; Protocol Last Admin: 03/08/19 06:48 Dose: Not Given Levothyroxine Sodium (Synthroid) 150 mcg PO ACBREAKFAST [facility] Last Admin: 03/08/19 06:24 Dose: 150 mcg Metoprolol Succinate (Toprol Xl) 100 mg PO DAILY [facility] Naloxone HCl (Narcan) 0.1 mg IVPUSH Q5M PRN PRN Reason: Oversedation Ondansetron HCl (Zofran) 4 mg IVPUSH Q6H PRN PRN Reason: Nausea/Vomiting Oxycodone/Acetaminophen (Percocet 325-5 Mg) 1 - 2 tab PO Q4H PRN PRN Reason: Pain Last Admin: 03/08/19 06:24 Dose: 2 tab Senna (Senna) 8.6 mg PO BID PRN PRN Reason: Constipation Tamsulosin HCl (Flomax) 0.4 mg PO BEDTIME [facility] Last Admin: 03/07/19 20:41 Dose: 0.4 mg Discontinued Medications Acetaminophen (Tylenol) 975 mg PO ONETIME [facility] Stop: 03/07/19 12:00 Last Admin: 03/07/19 10:01 Dose: 975 mg Bupivacaine HCl (Sensorcaine-Mpf 0.25%) Confirm Administered Dose 30 ml .ROUTE .STK-MED ONE Stop: 03/07/19 10:09 Last Admin: 03/07/19 13:05 Dose: 30 ml Cefazolin Sodium (Ancef) Confirm Administered Dose 2 gm .ROUTE .STK-MED ONE Stop: 03/07/19 10:09 Last Admin: 03/07/19 13:00 Dose: 2 gm Morphine Sulfate 8 mg/Epinephrine HCl 0.3 mg/Cefuroxime Sodium 750 mg/Sodium Chloride 27.9 ml 0 mg .XX ONETIME ONE Stop: 03/07/19 10:01 Last Admin: 03/07/19 13:04 Dose: 758.3 mg Ephedrine Sulfate (Ephedrine Sulfate) 5 mg IVPUSH ASDIRECTED PRN PRN Reason: Hypotension Stop: 03/07/19 18:00 Fentanyl (Sublimaze) Confirm Administered Dose 100 mcg .ROUTE .STK-MED ONE Stop: 03/07/19 10:37 Lactated Ringer's (Ringers, Lactated) 1,000 mls @ 125 mls/hr IV ASDIRECTED [facility] Stop: 03/07/19 18:00 Last Admin: 03/07/19 10:05 Dose: 125 mls/hr Lidocaine HCl (Xylocaine-Mpf 1%) Confirm Administered Dose 4 mls @ as directed .ROUTE .STK-MED ONE Stop: 03/07/19 10:38 Lactated Ringer's (Ringers, Lactated) Confirm Administered Dose 1,000 mls @ as directed .ROUTE .STK-MED ONE Stop: 03/07/19 11:06 Sodium Chloride (Normal Saline) 1,000 mls @ 125 mls/hr IV ASDIRECTED [facility] Iodine (Iodine 2% Mild Tincture) Confirm Administered Dose 30 ml .ROUTE .STK- MED ONE Stop: 03/07/19 10:09 Last Admin: 03/07/19 12:57 Dose: 18 ml Lidocaine/Sodium Bicarbonate (Buffered Lidocaine 1% In Ns 8.4%) 0.25 ml IDERM ONETIME PRN PRN Reason: Prior to IV Start Stop: 03/07/19 18:00 Losartan Potassium (Cozaar) 150 mg PO DAILY [facility] Midazolam HCl (Versed 1 Mg/Ml) Confirm Administered Dose 2 mg .ROUTE .STK-MED ONE Stop: 03/07/19 11:06 Ondansetron HCl (Zofran) 4 mg IVPUSH ONETIME PRN PRN Reason: Nausea/Vomiting Stop: 03/07/19 18:00 Oxycodone HCl (Oxycontin) 10 mg PO ONETIME [facility] Stop: 03/07/19 16:00 Last Admin: 03/07/19 10:01 Dose: 10 mg Pregabalin (Lyrica) 50 mg PO ONETIME [facility] Stop: 03/07/19 12:00 Last Admin: 03/07/19 10:01 Dose: 50 mg Propofol (Diprivan 20 Ml) Confirm Administered Dose 200 mg .ROUTE .STK-MED ONE Stop: 03/07/19 10:36 Propofol (Diprivan 20 Ml) Confirm Administered Dose 200 mg .ROUTE .STK-MED ONE Stop: 03/07/19 12:22 Ropivacaine (Naropin 0.5%) Confirm Administered Dose 30 ml .ROUTE .STK-MED ONE Stop: 03/07/19 11:24 Sodium Chloride (Saline Flush) 10 ml FLUSH ASDIRECTED PRN PRN Reason: Keep Vein Open Stop: 12/16/19 18:00 Tranexamic Acid (Cyklokapron) Confirm Administered Dose 1,000 mg .ROUTE .STK- MED ONE Stop: 03/07/19 10:09 Last Admin: 03/07/19 13:12 Dose: 1,000 mg Vancomycin HCl (Vancomycin) Confirm Administered Dose 1 gm .ROUTE .STK-MED ONE Stop: 03/07/19 10:09 Last Admin: 03/07/19 13:13 Dose: 1 gm - Exam Quality Assessment: DVT Prophylaxis General: Alert, Oriented, Cooperative, No Acute Distress HEENT: Pupils Equal, Pupils Reactive, EOMI, Mucous Membr. Moist/[place] Neck: Supple, Trachea Midline Lungs: Clear to Auscultation, Normal Respiratory Effort Cardiovascular: Regular Rate, Regular Rhythm GI/Abdominal Exam: Normal Bowel Sounds, Non-Tender, No Distention, No Abnormal Bruit, Rigid (apparenlty chronic ) (Male) Exam: Deferred Back Exam: Normal Inspection, Full Range of Motion Extremities: Normal Capillary Refill, Leg Pain (severe ), Limited Range of Motion, Other (Bandage in place on left leg. Cooling pack in place. ) Peripheral Pulses: 2+: Radial (L), Radial (R), Dorsalis Pedis (L), Dorsalis Pedis (R) Skin: Warm, Dry, Intact Wound/Incisions: Dressing Dry and Intact Neurological: No New Focal Deficit Psy/Mental Status: Alert, Normal Affect, Normal Mood Sepsis Event Note - Evaluation Sepsis Screening Result: No Definite Risk - Focused Exam Vital Signs: Vital Signs Temp Temp Pulse Resp BP Pulse Ox 03/08/19 04:21 98.4 F 74 16 139/77 94 L 03/07/19 23:04 98.2 F 77 18 123/73 93 L 03/07/19 20:27 65 16 117/85 93 L 03/07/19 20:00 98.1 F 03/07/19 19:02 69 119/66 94 L Date Exam was Performed: 03/08/19 Time Exam was Performed: 11:10 Consult PN Assessment/Plan POD#: 1 Procedures: Procedures ANTINUCLEAR ANTIBODIES (01/11/18) ANTITHROMBIN III ACTIVITY (08/11/18) ASSAY OF BLOOD/URIC ACID (01/11/18) ASSAY OF NATRIURETIC PEPTIDE (04/14/18) ASSAY OF PARATHORMONE (01/11/18) ASSAY OF PREALBUMIN (02/09/19) ASSAY OF PROTEIN URINE (01/11/18) ASSAY OF SERUM ALBUMIN (02/09/19) ASSAY OF TROPONIN QUANT (04/14/18) ASSAY OF URINE CREATININE (01/11/18) ASSAY THYROID STIM HORMONE (08/11/18) BETA-2 GLYCOPROTEIN ANTIBODY (08/11/18) C-REACTIVE PROTEIN (02/09/19) CATARACT SURG W/IOL 1 STAGE (08/05/16) CLOT INHIBIT PROT C ACTIVITY (08/11/18) CLOT INHIBIT PROT S FREE (08/11/18) COLONOSCOPY AND BIOPSY (11/23/18) COLONOSCOPY W/LESION REMOVAL (11/23/18) COMPLETE CBC AUTOMATED (08/11/18) COMPLETE CBC W/AUTO DIFF WBC (02/09/19) COMPREHEN METABOLIC PANEL (08/11/18) CT ANGIOGRAPHY CHEST (04/14/18) DXA BONE DENSITY AXIAL (02/22/19) ECG MONIT/REPRT UP TO 48 HRS (04/16/18) ECG MONIT/REPRT UP TO 48 HRS (04/16/18) ELECTROCARDIOGRAM TRACING (02/09/19) EMERGENCY DEPT VISIT (04/14/18) F5 GENE (08/11/18) FIBRIN DEGRADATION QUANT (04/14/18) FLUORESCENT ANTIBODY TITER (01/11/18) GLYCOSYLATED HEMOGLOBIN TEST (02/09/19) HIV-1 AG IA (01/11/18) HYDRATION IV INFUSION INIT (04/14/18) IMMUNOASSAY QUANT NOS NONAB (01/11/18) LIPID PANEL (04/14/18) METABOLIC PANEL TOTAL CA (02/09/19) OFFICE/OUTPATIENT VISIT EST (02/09/19) OFFICE/OUTPATIENT VISIT EST (03/28/16) PROTEIN E-PHORESIS/URINE/CSF (01/11/18) PROTHROMBIN TIME (02/09/19) RENAL FUNCTION PANEL (01/11/18) ROUTINE VENIPUNCTURE (02/09/19) THROMBOPLASTIN TIME PARTIAL (04/14/18) TTE W/DOPPLER COMPLETE (04/19/18) UPR/LXTR ART STDY 3+ LVLS (04/19/18) UR ALBUMIN QUANTITATIVE (10/27/17) URINALYSIS AUTO W/SCOPE (01/11/18) US EXAM ABDO BACK WALL GRANGER (12/21/17) VASCULAR STUDY (12/21/17) VITAMIN D 25 HYDROXY (01/11/18) X-RAY EXAM CHEST 2 VIEWS (02/09/19) (1) S/P total knee arthroplasty SNOMED Code(s): 8954913047732, 718861362, 3751155140888 Code(s): Z96.659 - PRESENCE OF UNSPECIFIED ARTIFICIAL KNEE JOINT Priority: High Current Visit: Yes Qualifiers: Laterality: left Qualified Code(s): Z96.652 - Presence of left artificial knee joint (2) Osteoarthritis SNOMED Code(s): 615804332 Code(s): M19.90 - UNSPECIFIED OSTEOARTHRITIS, UNSPECIFIED SITE Priority: High Current Visit: Yes Qualifiers: Osteoarthritis location: knee Osteoarthritis type: primary Laterality: left Qualified Code(s): M17.12 - Unilateral primary osteoarthritis, left knee (3) Hx of pulmonary embolus SNOMED Code(s): 472818120 Code(s): Z86.711 - PERSONAL HISTORY OF PULMONARY EMBOLISM Priority: Medium Current Visit: No (4) History of supraventricular tachycardia SNOMED Code(s): 192214939168967 Code(s): Z86.79 - PERSONAL HISTORY OF OTHER DISEASES OF THE CIRCULATORY SYSTEM Priority: Medium Current Visit: No (5) History of radiofrequency ablation procedure for cardiac arrhythmia SNOMED Code(s): 611563708 Code(s): Z98.890 - OTHER SPECIFIED POSTPROCEDURAL STATES Priority: Medium Current Visit: No (6) Type II diabetes mellitus SNOMED Code(s): 50430933 Code(s): E11.9 - TYPE 2 DIABETES MELLITUS WITHOUT COMPLICATIONS Priority: Medium Current Visit: Yes Qualifiers: Diabetes mellitus long-term insulin use: unspecified long-term insulin use status Diabetes mellitus complication status: without complication Qualified Code(s): E11.9 - Type 2 diabetes mellitus without complications (7) BPH (benign prostatic hyperplasia) SNOMED Code(s): 896683664 Code(s): N40.0 - BENIGN PROSTATIC HYPERPLASIA WITHOUT LOWER URINRY TRACT SYMP Priority: Low Current Visit: No Qualifiers: Lower urinary tract symptom presence: unspecified whether lower urinary tract symptoms present Qualified Code(s): N40.0 - Benign prostatic hyperplasia without lower urinary tract symptoms (8) HTN (hypertension) SNOMED Code(s): 66919790 Code(s): I10 - ESSENTIAL (PRIMARY) HYPERTENSION Priority: Medium Current Visit: No Qualifiers: Hypertension type: unspecified Qualified Code(s): I10 - Essential (primary ) hypertension (9) Claudication SNOMED Code(s): 04460529 Code(s): I73.9 - PERIPHERAL VASCULAR DISEASE, UNSPECIFIED Priority: Low Current Visit: No (10) Hemorrhoids SNOMED Code(s): 16269559 Code(s): K64.9 - UNSPECIFIED HEMORRHOIDS Priority: Low Current Visit: No Qualifiers: Hemorrhoid type: unspecified Qualified Code(s): K64.9 - Unspecified hemorrhoids (11) Stage 3 chronic kidney disease SNOMED Code(s): 201790607 Code(s): N18.3 - CHRONIC KIDNEY DISEASE, STAGE 3 (MODERATE) Priority: Medium Current Visit: No (12) Hypothyroid SNOMED Code(s): 86241297 Code(s): E03.9 - HYPOTHYROIDISM, UNSPECIFIED Priority: Low Current Visit : No Qualifiers: Hypothyroidism type: unspecified Qualified Code(s): E03.9 - Hypothyroidism , unspecified (13) Chronic shortness of breath SNOMED Code(s): 531373209 Code(s): R06.02 - SHORTNESS OF BREATH Priority: Medium Current Visit: No (14) Lower extremity edema SNOMED Code(s): 858491913 Code(s): R60.0 - LOCALIZED EDEMA Priority: Low Current Visit: No Problem List Initiated/Reviewed/Updated: Yes My Orders Last 24 Hours: My Active Orders 03/07/19 15:27 Blood Glucose Check, Bedside [RC] QIDACANDBED 03/07/19 16:30 Sodium Chloride 0.9% [Normal Saline] 1,000 ml IV ASDIRECTED 03/07/19 17:00 Insulin Lispro [HumaLOG] See Protocol SUBCUT QIDACANDBED 03/07/19 21:00 Tamsulosin [Flomax] 0.4 mg PO BEDTIME 03/08/19 06:00 Levothyroxine [Synthroid] 150 mcg PO ACBREAKFAST 03/08/19 09:00 Cholecalciferol (Vitamin D3) [Vitamin D3] 5,000 unit PO DAILY Metoprolol Succinate [Toprol XL] 100 mg PO DAILY amLODIPine [Norvasc] 10 mg PO DAILY Plan: I/P: Acute: S/P left total knee arthroplasty - post-operative day 1 -DVT prophylaxis and pain management per primary care team -PT/OT -IS/RT -Monitor oxygen saturation -Titrate oxygen as needed -Home medications reviewed -Vital signs stable -Monitor labs -Pre-operative Hgb was 15.5; Now 13.1 -Pre-operative GFR was 31; Now 37 -Pre-operative creatinine was 2.1; Now 1.8 -Pre-operative BUN was 33; Now 35 -Pre-operative WBC was 9.61 with CRP WNL; WBC now 8.39 -Pre-operative A1C was 5.9% Osteoarthritis of left knee -Pain management per primary care team 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 His PCP is Eddi Atwood PA-C From a hospitalist standpoint Alvaro is doing ok. He is off of oxygen and has urinated. His labs and vital signs remain stable. He has been utilizing his IS. His pain has been difficult to control and subsequently he has had difficulty working with therapies. As of right now they are recommending a SNF rehab stay. Per the family, the patient has also been having falls at home prior to surgery. He will continue working with PT/OT while here and it is unlikely he will be discharged today. We will continue to follow, as needed. He otherwise remains clinically stable. Thank you for allowing us to participate in the care of this patient!!
--- NOTE | 2019-03-08 07:59 | PCM48HPAN ---
Post Anesthesia Note - EVALUATION WITHIN 48HRS OF ANESTHETIC Vital Signs in Normal Range: Yes Patient Participated in Evaluation: Yes Respiratory Function Stable: Yes Airway Patent: Yes Cardiovascular Function Stable: Yes Hydration Status Stable: Yes Pain Control Satisfactory: Yes (pain on and off last pm.) Nausea and Vomiting Control Satisfactory: Yes Mental Status Recovered: Yes (no nause) Vital Signs: Last Vital Signs Temp 98.4 F 03/08/19 04:21 Pulse 74 03/08/19 04:21 Resp 16 03/08/19 04:21 BP 139/77 03/08/19 04:21 Pulse Ox 94 L 03/08/19 04:21
[2019-03-08] MEDS: Docusate Sodium 100 MG Cap PO SCH ×2 (08:16→20:49)
[2019-03-08] MEDS: Cholecalciferol (Vitamin D3) 5,000 UNIT Tab PO SCH (08:16)
[2019-03-08] MEDS: Hydrochlorothiazide 25 MG Tab PO SCH (08:16)
[2019-03-08] MEDS: Famotidine 20 MG Tab PO SCH (08:16)
[2019-03-08] MEDS: Apixaban 2.5 MG Tab PO SCH ×2 (08:17→20:49)
[2019-03-08] MEDS: amLODIPine 10 MG Tab PO SCH (08:17)
[2019-03-08] MEDS: Metoprolol Succinate 50 MG Tab.ER PO SCH (08:17)
[2019-03-08] MEDS: Cyclobenzaprine 10 MG Tab PO PRN (08:20)
[2019-03-08] MEDS ORDERED: Losartan 100 MG Tab PO SCH (09:00)
[2019-03-08] MEDS ORDERED: oxyCODONE 5 MG Tab PO ONE (14:00)
[2019-03-08] MEDS ORDERED: Cyclobenzaprine 10 MG Tab PO ONE (20:30)
[2019-03-08] MEDS: Tamsulosin 0.4 MG Cap.ER PO SCH (20:49)
[2019-03-09] MEDS: Acetaminophen/oxyCODONE 325-5 MG Tab PO PRN ×5 (04:48→21:01)
[2019-03-09] MEDS: Levothyroxine 50 MCG Tab PO SCH (06:35)
[2019-03-09] MEDS: Insulin Lispro 100 Units/ML 3 ML Vial SUBCUT SCH ×4 (06:50→21:04)
--- NOTE | 2019-03-09 07:00 | PCM.CONSN ---
- General Info Date of Service: 03/09/19 Admission Dx/Problem (Free Text): Admission Diagnosis/Problem Admission Diagnosis/Problem Osteoarthritis of knee Functional Status: Reports: Pain Controlled, Tolerating Diet, Ambulating, Urinating, Incentive Spirometry. Denies: New Symptoms - Review of Systems General: Reports: Weakness. Denies: Fever, Chills HEENT: Reports: No Symptoms. Denies: Headaches, Sore Throat Pulmonary: Reports: No Symptoms. Denies: Shortness of Breath, Pleuritic Chest Pain, Cough, Sputum, Wheezing Cardiovascular: Reports: No Symptoms. Denies: Chest Pain, Palpitations Gastrointestinal: Reports: No Symptoms. Denies: Abdominal Pain, Constipation, Diarrhea, Nausea, Vomiting Genitourinary: Reports: Urgency, Incontinence (nocturia). Denies: Pain Musculoskeletal: Reports: Leg Pain (left leg ) Skin: Reports: No Symptoms. Denies: Cyanosis Neurological: Reports: Difficulty Walking, Weakness, Gait Disturbance. Denies: Confusion, Pre-Existing Deficit Psychiatric: Reports: No Symptoms - Patient Data Vitals - Most Recent: Last Vital Signs Temp 98.2 F 03/08/19 23:28 Pulse 90 03/09/19 04:49 Resp 16 03/09/19 04:49 BP 122/77 03/09/19 04:49 Pulse Ox 93 L 03/09/19 04:49 Weight - Most Recent: 258 lb 9.6 oz I&O - Last 24 Hours: Intake & Output 03/08/19 03/09/19 03/09/19 22:59 06:59 14:59 Intake Total 1850 800 Output Total 1200 700 Balance 650 100 Lab Results Last 24 Hours: Laboratory Results - last 24 hr 03/08/19 03/08/19 03/08/19 Range/Units 11:49 18:10 21:09 WBC (4.23-9.07) K/mm3 RBC (4.63-6.08) M/mm3 Hgb (13.7-17.5) gm/dl Hct (40.1-51.0) % MCV (79.0-92.2) fl MCH (25.7-32.2) pg MCHC (32.2-35.5) g/dl RDW Std Deviation (35.1-43.9) fL Plt Count (163-337) K/mm3 MPV (9.4-12.3) fl Neut % (Auto) (34.0-67.9) % Lymph % (Auto) (21.8-53.1) % [place] % (Auto) (5.3-12.2) % Eos % (Auto) (0.8-7.0) Baso % (Auto) (0.1-1.2) % Neut # (Auto) (1.78-5.38) K/mm3 Lymph # (Auto) (1.32-3.57) K/mm3 [place] # (Auto) (0.30-0.82) K/mm3 Eos # (Auto) (0.04-0.54) K/mm3 Baso # (Auto) (0.01-0.08) K/mm3 Sodium (136-145) mEq/L Potassium (3.5-5.1) mEq/L Chloride (98-107) mEq/L Carbon Dioxide (21-32) mEq/L Anion Gap (5-15) BUN (7-18) mg/dL Creatinine (0.7-1.3) mg/dL Est Cr Clr Drug Dosing mL/min Estimated GFR (MDRD) (>60) mL/min BUN/Creatinine Ratio (14-18) Glucose (83-115) mg/dL POC Glucose 137 H 133 H 127 H (83-110) mg/dL Calcium (8.5-10.1) mg/dL Magnesium (1.8-2.4) mg/dl Total Bilirubin (0.2-1.0) mg/dL AST (15-37) U/L ALT (16-63) U/L Alkaline Phosphatase (46-116) U/L Total Protein (6.4-8.2) g/dl Albumin (3.4-5.0) g/dl Globulin gm/dL Albumin/Globulin Ratio (1-2) 03/09/19 03/09/19 03/09/19 Range/Units 05:11 05:11 06:33 WBC 9.22 H (4.23-9.07) K/mm3 RBC 4.15 L (4.63-6.08) M/mm3 Hgb 12.6 L (13.7-17.5) gm/dl Hct 38.2 L (40.1-51.0) % MCV 92.0 (79.0-92.2) fl MCH 30.4 (25.7-32.2) pg MCHC 33.0 (32.2-35.5) g/dl RDW Std Deviation 43.0 (35.1-43.9) fL Plt Count 140 L (163-337) K/mm3 MPV 10.8 (9.4-12.3) fl Neut % (Auto) 61.9 (34.0-67.9) % Lymph % (Auto) 20.2 L (21.8-53.1) % [place] % (Auto) 15.2 H (5.3-12.2) % Eos % (Auto) 2.3 (0.8-7.0) Baso % (Auto) 0.2 (0.1-1.2) % Neut # (Auto) 5.71 H (1.78-5.38) K/mm3 Lymph # (Auto) 1.86 (1.32-3.57) K/mm3 [place] # (Auto) 1.40 H (0.30-0.82) K/mm3 Eos # (Auto) 0.21 (0.04-0.54) K/mm3 Baso # (Auto) 0.02 (0.01-0.08) K/mm3 Sodium 136 (136-145) mEq/L Potassium 3.8 (3.5-5.1) mEq/L Chloride 102 (98-107) mEq/L Carbon Dioxide 26 (21-32) mEq/L Anion Gap 11.8 (5-15) BUN 24 H (7-18) mg/dL Creatinine 1.9 H (0.7-1.3) mg/dL Est Cr Clr Drug Dosing 30.44 mL/min Estimated GFR (MDRD) 35 (>60) mL/min BUN/Creatinine Ratio 12.6 L (14-18) Glucose 120 H (83-115) mg/dL POC Glucose 109 (83-110) mg/dL Calcium 8.7 (8.5-10.1) mg/dL Magnesium 1.7 L (1.8-2.4) mg/dl Total Bilirubin 0.8 (0.2-1.0) mg/dL AST 21 (15-37) U/L ALT 23 (16-63) U/L Alkaline Phosphatase 48 (46-116) U/L Total Protein 6.2 L (6.4-8.2) g/dl Albumin 2.7 L (3.4-5.0) g/dl Globulin 3.5 gm/dL Albumin/Globulin Ratio 0.8 L (1-2) Med Orders - Current: Current Medications Amlodipine Besylate (Norvasc) 10 mg PO DAILY [facility] Last Admin: 03/08/19 08:17 Dose: 10 mg Apixaban (Eliquis) 2.5 mg PO BID [facility] Last Admin: 03/08/19 20:49 Dose: 2.5 mg Bisacodyl (Dulcolax) 5 mg PO DAILY PRN PRN Reason: Constipation Cholecalciferol (Vitamin D3) 5,000 unit PO DAILY [facility] Last Admin: 03/08/19 08:16 Dose: 5,000 unit Cyclobenzaprine HCl (Flexeril) 5 mg PO BID PRN PRN Reason: Spasms Last Admin: 03/08/19 08:20 Dose: 5 mg Docusate Sodium (Colace) 100 mg PO BID [facility] Last Admin: 03/08/19 20:49 Dose: 100 mg Famotidine (Pepcid) 20 mg PO DAILY [facility] Hydrochlorothiazide (Hydrochlorothiazide) 25 mg PO DAILY [facility] Last Admin: 03/08/19 08:16 Dose: 25 mg Hydromorphone HCl (Dilaudid) 0.2 mg IVPUSH Q2H PRN PRN Reason: Pain (moderate 4-6) Last Admin: 03/07/19 22:08 Dose: 0.2 mg Magnesium Sulfate 2 gm/ Premix 50 mls @ 25 mls/hr IV ONETIME ONE Stop: 03/09/19 08:58 Insulin Human Lispro (Humalog) 0 unit SUBCUT QIDACANDBED [facility]; Protocol Last Admin: 03/09/19 06:50 Dose: Not Given Levothyroxine Sodium (Synthroid) 150 mcg PO ACBREAKFAST [facility] Last Admin: 03/09/19 06:35 Dose: 150 mcg Metoprolol Succinate (Toprol Xl) 100 mg PO DAILY [facility] Last Admin: 03/08/19 08:17 Dose: 100 mg Naloxone HCl (Narcan) 0.1 mg IVPUSH Q5M PRN PRN Reason: Oversedation Ondansetron HCl (Zofran) 4 mg IVPUSH Q6H PRN PRN Reason: Nausea/Vomiting Oxycodone/Acetaminophen (Percocet 325-5 Mg) 1 - 2 tab PO Q4H PRN PRN Reason: Pain Last Admin: 03/09/19 04:48 Dose: 2 tab Senna (Senna) 8.6 mg PO BID PRN PRN Reason: Constipation Tamsulosin HCl (Flomax) 0.4 mg PO BEDTIME [facility] Last Admin: 03/08/19 20:49 Dose: 0.4 mg Discontinued Medications Acetaminophen (Tylenol) 975 mg PO ONETIME [facility] Stop: 03/07/19 12:00 Last Admin: 03/07/19 10:01 Dose: 975 mg Bupivacaine HCl (Sensorcaine-Mpf 0.25%) Confirm Administered Dose 30 ml .ROUTE .STK-MED ONE Stop: 03/07/19 10:09 Last Admin: 03/07/19 13:05 Dose: 30 ml Cefazolin Sodium (Ancef) Confirm Administered Dose 2 gm .ROUTE .STK-MED ONE Stop: 03/07/19 10:09 Last Admin: 03/07/19 13:00 Dose: 2 gm Morphine Sulfate 8 mg/Epinephrine HCl 0.3 mg/Cefuroxime Sodium 750 mg/Sodium Chloride 27.9 ml 0 mg .XX ONETIME ONE Stop: 03/07/19 10:01 Last Admin: 03/07/19 13:04 Dose: 758.3 mg Cyclobenzaprine HCl (Flexeril) 10 mg PO ONETIME ONE Stop: 03/08/19 20:31 Last Admin: 03/08/19 20:49 Dose: 10 mg Ephedrine Sulfate (Ephedrine Sulfate) 5 mg IVPUSH ASDIRECTED PRN PRN Reason: Hypotension Stop: 03/07/19 18:00 Famotidine (Pepcid) 20 mg PO Q12H [facility] Last Admin: 03/08/19 08:16 Dose: 20 mg Fentanyl (Sublimaze) Confirm Administered Dose 100 mcg .ROUTE .STK-MED ONE Stop: 03/07/19 10:37 Lactated Ringer's (Ringers, Lactated) 1,000 mls @ 125 mls/hr IV ASDIRECTED [facility] Stop: 03/07/19 18:00 Last Admin: 03/07/19 10:05 Dose: 125 mls/hr Cefazolin Sodium/Dextrose 2 gm (/ Premix) 50 mls @ 100 mls/hr IV Q8H [facility] Stop: 03/08/19 13:29 Last Admin: 03/08/19 12:13 Dose: Not Given Lidocaine HCl (Xylocaine-Mpf 1%) Confirm Administered Dose 4 mls @ as directed .ROUTE .STK-MED ONE Stop: 03/07/19 10:38 Lactated Ringer's (Ringers, Lactated) Confirm Administered Dose 1,000 mls @ as directed .ROUTE .STK-MED ONE Stop: 03/07/19 11:06 Sodium Chloride (Normal Saline) 1,000 mls @ 125 mls/hr IV ASDIRECTED [facility] Sodium Chloride (Normal Saline) 1,000 mls @ 125 mls/hr IV ASDIRECTED [facility] Last Admin: 03/08/19 00:59 Dose: 125 mls/hr Iodine (Iodine 2% Mild Tincture) Confirm Administered Dose 30 ml .ROUTE .STK- MED ONE Stop: 03/07/19 10:09 Last Admin: 03/07/19 12:57 Dose: 18 ml Lidocaine/Sodium Bicarbonate (Buffered Lidocaine 1% In Ns 8.4%) 0.25 ml IDERM ONETIME PRN PRN Reason: Prior to IV Start Stop: 03/07/19 18:00 Losartan Potassium (Cozaar) 150 mg PO DAILY [facility] Midazolam HCl (Versed 1 Mg/Ml) Confirm Administered Dose 2 mg .ROUTE .STK-MED ONE Stop: 03/07/19 11:06 Ondansetron HCl (Zofran) 4 mg IVPUSH ONETIME PRN PRN Reason: Nausea/Vomiting Stop: 03/07/19 18:00 Oxycodone HCl (Oxycontin) 10 mg PO ONETIME [facility] Stop: 03/07/19 16:00 Last Admin: 03/07/19 10:01 Dose: 10 mg Oxycodone HCl (Oxycodone) 5 mg PO ONETIME ONE Stop: 03/08/19 14:01 Last Admin: 03/08/19 16:00 Dose: Not Given Pregabalin (Lyrica) 50 mg PO ONETIME [facility] Stop: 03/07/19 12:00 Last Admin: 03/07/19 10:01 Dose: 50 mg Propofol (Diprivan 20 Ml) Confirm Administered Dose 200 mg .ROUTE .STK-MED ONE Stop: 03/07/19 10:36 Propofol (Diprivan 20 Ml) Confirm Administered Dose 200 mg .ROUTE .STK-MED ONE Stop: 03/07/19 12:22 Ropivacaine (Naropin 0.5%) Confirm Administered Dose 30 ml .ROUTE .STK-MED ONE Stop: 03/07/19 11:24 Sodium Chloride (Saline Flush) 10 ml FLUSH ASDIRECTED PRN PRN Reason: Keep Vein Open Stop: 03/07/19 18:00 Tranexamic Acid (Cyklokapron) Confirm Administered Dose 1,000 mg .ROUTE .STK- MED ONE Stop: 03/07/19 10:09 Last Admin: 03/07/19 13:12 Dose: 1,000 mg Vancomycin HCl (Vancomycin) Confirm Administered Dose 1 gm .ROUTE .STK-MED ONE Stop: 03/07/19 10:09 Last Admin: 03/07/19 13:13 Dose: 1 gm - Exam Quality Assessment: DVT Prophylaxis. No: Supplemental Oxygen, Urine Catheter General: Alert, Oriented, Cooperative, No Acute Distress HEENT: Pupils Equal, Pupils Reactive, EOMI, Mucous Membr. Moist/[place] Neck: Supple, Trachea Midline Lungs: Clear to Auscultation, Normal Respiratory Effort Cardiovascular: Regular Rate, Regular Rhythm GI/Abdominal Exam: Normal Bowel Sounds, Non-Tender, No Distention, No Abnormal Bruit, Rigid (reports this is chronic for him). No: Soft (Male) Exam: Deferred Back Exam: Normal Inspection, Full Range of Motion Extremities: Normal Capillary Refill, Leg Pain, Limited Range of Motion, Other ( Bandage on left leg. Cooling pack in place. ) Peripheral Pulses: 2+: Radial (L), Radial (R), Dorsalis Pedis (L), Dorsalis Pedis (R) Skin: Warm, Dry, Intact Wound/Incisions: Dressing Dry and Intact Neurological: No New Focal Deficit Psy/Mental Status: Alert, Normal Affect, Normal Mood Sepsis Event Note - Evaluation Sepsis Screening Result: No Definite Risk - Focused Exam Vital Signs: Vital Signs Temp Pulse Resp BP Pulse Ox 03/09/19 04:49 90 16 122/77 93 L 03/08/19 23:52 90 20 148/67 H 95 03/08/19 23:35 135/70 03/08/19 23:28 98.2 F 93 20 154/68 H 97 03/08/19 20:41 98.8 F 83 18 144/67 H 93 L Date Exam was Performed: 03/09/19 Time Exam was Performed: 09:47 Consult PN Assessment/Plan POD#: 2 Procedures: Procedures ANTINUCLEAR ANTIBODIES (01/11/18) ANTITHROMBIN III ACTIVITY (08/11/18) ASSAY OF BLOOD/URIC ACID (01/11/18) ASSAY OF NATRIURETIC PEPTIDE (04/14/18) ASSAY OF PARATHORMONE (01/11/18) ASSAY OF PREALBUMIN (02/09/19) ASSAY OF PROTEIN URINE (01/11/18) ASSAY OF SERUM ALBUMIN (02/09/19) ASSAY OF TROPONIN QUANT (04/14/18) ASSAY OF URINE CREATININE (01/11/18) ASSAY THYROID STIM HORMONE (08/11/18) BETA-2 GLYCOPROTEIN ANTIBODY (08/11/18) C-REACTIVE PROTEIN (02/09/19) CATARACT SURG W/IOL 1 STAGE (08/05/16) CLOT INHIBIT PROT C ACTIVITY (08/11/18) CLOT INHIBIT PROT S FREE (08/11/18) COLONOSCOPY AND BIOPSY (11/23/18) COLONOSCOPY W/LESION REMOVAL (11/23/18) COMPLETE CBC AUTOMATED (08/11/18) COMPLETE CBC W/AUTO DIFF WBC (02/09/19) COMPREHEN METABOLIC PANEL (08/11/18) CT ANGIOGRAPHY CHEST (04/14/18) DXA BONE DENSITY AXIAL (02/22/19) ECG MONIT/REPRT UP TO 48 HRS (04/16/18) ECG MONIT/REPRT UP TO 48 HRS (04/16/18) ELECTROCARDIOGRAM TRACING (02/09/19) EMERGENCY DEPT VISIT (04/14/18) F5 GENE (08/11/18) FIBRIN DEGRADATION QUANT (04/14/18) FLUORESCENT ANTIBODY TITER (01/11/18) GLYCOSYLATED HEMOGLOBIN TEST (02/09/19) HIV-1 AG IA (01/11/18) HYDRATION IV INFUSION INIT (04/14/18) IMMUNOASSAY QUANT NOS NONAB (01/11/18) LIPID PANEL (04/14/18) METABOLIC PANEL TOTAL CA (02/09/19) OFFICE/OUTPATIENT VISIT EST (02/09/19) OFFICE/OUTPATIENT VISIT EST (03/28/16) PROTEIN E-PHORESIS/URINE/CSF (01/11/18) PROTHROMBIN TIME (02/09/19) RENAL FUNCTION PANEL (01/11/18) ROUTINE VENIPUNCTURE (02/09/19) THROMBOPLASTIN TIME PARTIAL (04/14/18) TTE W/DOPPLER COMPLETE (04/19/18) UPR/LXTR ART STDY 3+ LVLS (04/19/18) UR ALBUMIN QUANTITATIVE (10/27/17) URINALYSIS AUTO W/SCOPE (01/11/18) US EXAM ABDO BACK WALL GRANGER (12/21/17) VASCULAR STUDY (12/21/17) VITAMIN D 25 HYDROXY (01/11/18) X-RAY EXAM CHEST 2 VIEWS (02/09/19) (1) S/P total knee arthroplasty SNOMED Code(s): 0250353184978, 762019090, 8867814676647 Code(s): Z96.659 - PRESENCE OF UNSPECIFIED ARTIFICIAL KNEE JOINT Priority: High Current Visit: Yes Qualifiers: Laterality: left Qualified Code(s): Z96.652 - Presence of left artificial knee joint (2) Osteoarthritis SNOMED Code(s): 815615677 Code(s): M19.90 - UNSPECIFIED OSTEOARTHRITIS, UNSPECIFIED SITE Priority: High Current Visit: Yes Qualifiers: Osteoarthritis location: knee Osteoarthritis type: primary Laterality: left Qualified Code(s): M17.12 - Unilateral primary osteoarthritis, left knee (3) Hx of pulmonary embolus SNOMED Code(s): 382013676 Code(s): Z86.711 - PERSONAL HISTORY OF PULMONARY EMBOLISM Priority: Medium Current Visit: No (4) History of supraventricular tachycardia SNOMED Code(s): 544204543504799 Code(s): Z86.79 - PERSONAL HISTORY OF OTHER DISEASES OF THE CIRCULATORY SYSTEM Priority: Medium Current Visit: No (5) History of radiofrequency ablation procedure for cardiac arrhythmia SNOMED Code(s): 951035820 Code(s): Z98.890 - OTHER SPECIFIED POSTPROCEDURAL STATES Priority: Medium Current Visit: No (6) Type II diabetes mellitus SNOMED Code(s): 32775005 Code(s): E11.9 - TYPE 2 DIABETES MELLITUS WITHOUT COMPLICATIONS Priority: Medium Current Visit: Yes Qualifiers: 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 Diabetes mellitus complication status: without complication Qualified Code(s): E11.9 - Type 2 diabetes mellitus without complications (7) BPH (benign prostatic hyperplasia) SNOMED Code(s): 238254445 Code(s): N40.0 - BENIGN PROSTATIC HYPERPLASIA WITHOUT LOWER URINRY TRACT SYMP Priority: Low Current Visit: No Qualifiers: Lower urinary tract symptom presence: unspecified whether lower urinary tract symptoms present Qualified Code(s): N40.0 - Benign prostatic hyperplasia without lower urinary tract symptoms (8) HTN (hypertension) SNOMED Code(s): 99363277 Code(s): I10 - ESSENTIAL (PRIMARY) HYPERTENSION Priority: Medium Current Visit: No Qualifiers: Hypertension type: unspecified Qualified Code(s): I10 - Essential (primary ) hypertension (9) Claudication SNOMED Code(s): 98910141 Code(s): I73.9 - PERIPHERAL VASCULAR DISEASE, UNSPECIFIED Priority: Low Current Visit: No (10) Hemorrhoids SNOMED Code(s): 21532391 Code(s): K64.9 - UNSPECIFIED HEMORRHOIDS Priority: Low Current Visit: No Qualifiers: Hemorrhoid type: unspecified Qualified Code(s): K64.9 - Unspecified hemorrhoids (11) Stage 3 chronic kidney disease SNOMED Code(s): 312618284 Code(s): N18.3 - CHRONIC KIDNEY DISEASE, STAGE 3 (MODERATE) Priority: Medium Current Visit: No (12) Hypothyroid SNOMED Code(s): 34485438 Code(s): E03.9 - HYPOTHYROIDISM, UNSPECIFIED Priority: Low Current Visit : No Qualifiers: Hypothyroidism type: unspecified Qualified Code(s): E03.9 - Hypothyroidism , unspecified (13) Chronic shortness of breath SNOMED Code(s): 247372827 Code(s): R06.02 - SHORTNESS OF BREATH Priority: Medium Current Visit: No (14) Lower extremity edema SNOMED Code(s): 020803701 Code(s): R60.0 - LOCALIZED EDEMA Priority: Low Current Visit: No (15) Nocturia SNOMED Code(s): 832333162 Code(s): R35.1 - NOCTURIA Priority: Medium Current Visit: Yes (16) Hypomagnesemia SNOMED Code(s): 203420953 Code(s): E83.42 - HYPOMAGNESEMIA Priority: High Current Visit: Yes Problem List Initiated/Reviewed/Updated: Yes My Orders Last 24 Hours: My Active Orders 03/08/19 09:00 Cholecalciferol (Vitamin D3) [Vitamin D3] 5,000 unit PO DAILY Metoprolol Succinate [Toprol XL] 100 mg PO DAILY amLODIPine [Norvasc] 10 mg PO DAILY hydroCHLOROthiazide 25 mg PO DAILY 03/09/19 05:11 CBC WITH AUTO DIFF [HEME] AM 03/09/19 06:59 Magnesium Sulfate/Water [Magnesium Sulfate in Water Premix] 2 gm Premix Bag 1 bag IV ONETIME Plan: I/P: Acute: S/P left total knee arthroplasty - post-operative day 1 -DVT prophylaxis and pain management per primary care team -PT/OT -IS/RT -Monitor oxygen saturation -Titrate oxygen as needed -Home medications reviewed -Vital signs stable -Monitor labs -Pre-operative Hgb was 15.5; Now 13.1-->12.6 -Pre-operative GFR was 31; Now 37-->35 -Pre-operative creatinine was 2.1; Now 1.8-->1.9 -Pre-operative BUN was 33; Now 35-->34 -Pre-operative WBC was 9.61 with CRP WNL; WBC now 8.39--> -Pre-operative A1C was 5.9% Osteoarthritis of left knee -Pain management per primary care team Hypomagnesemia -Magnesium 1.7 -Supplemented Nocturia -Reports occasional urgency as well -Reports this is new to him -Mild leukocytosis - likely stress reaction from surgery -Will order UA 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 His PCP is Eddi Atwood PA-C From a hospitalist standpoint Alvaro continues to do ok. He is off of oxygen and continues to urinate. He does report some nocturia and occasional urgency so we will check a UA. His labs and vital signs remain stable. His magnesium was low today and was supplemented. He continues to utilize his IS. His pain is improved but he continues to have difficulty working with therapies. They continue to recommend a SNF rehab stay. He will continue working with PT/OT while here and CM/SW is working on placement. We will continue to follow, as needed. He otherwise remains clinically stable. Thank you for allowing us to participate in the care of this patient!!
[2019-03-09] MEDS ORDERED: Magnesium Sulfate/Water 2 GM in Premix Bag 1 BAG IV ONE (07:30)
[2019-03-09] MEDS: Cyclobenzaprine 10 MG Tab PO PRN ×2 (08:08→21:01)
[2019-03-09] MEDS: Metoprolol Succinate 50 MG Tab.ER PO SCH (08:08)
[2019-03-09] MEDS: Cholecalciferol (Vitamin D3) 5,000 UNIT Tab PO SCH (08:09)
[2019-03-09] MEDS: Hydrochlorothiazide 25 MG Tab PO SCH (08:09)
[2019-03-09] MEDS: Apixaban 2.5 MG Tab PO SCH ×2 (08:09→21:00)
[2019-03-09] MEDS: Famotidine 20 MG Tab PO SCH (08:09)
[2019-03-09] MEDS: Docusate Sodium 100 MG Cap PO SCH ×2 (08:09→21:00)
[2019-03-09] MEDS: amLODIPine 10 MG Tab PO SCH (08:09)
[2019-03-09] MEDS: Tamsulosin 0.4 MG Cap.ER PO SCH (21:01)
--- NOTE | 2019-03-09 22:18 | PCM.SURGPN ---
- General Info Date of Service: 03/08/19 POD#: 1 Functional Status: Reports: Tolerating Diet, Other (The pt has ambulated short distances with assistance and with FWW.) - Patient Data Vitals - Most Recent: Last Vital Signs Temp 98.8 F 03/09/19 19:51 Pulse 78 03/09/19 19:51 Resp 19 03/09/19 19:51 BP 125/61 03/09/19 19:51 Pulse Ox 93 L 03/09/19 19:51 Weight - Most Recent: 258 lb 9.6 oz I&O - Last 24 Hours: Intake & Output 03/09/19 03/09/19 03/09/19 06:59 14:59 22:59 Intake Total 800 480 280 Output Total 700 1300 Balance 100 480 -1020 Lab Results Last 24 Hrs: Laboratory Results - last 24 hr 03/09/19 03/09/19 03/09/19 Range/Units 05:11 05:11 06:33 WBC 9.22 H (4.23-9.07) K/mm3 RBC 4.15 L (4.63-6.08) M/mm3 Hgb 12.6 L (13.7-17.5) gm/dl Hct 38.2 L (40.1-51.0) % MCV 92.0 (79.0-92.2) fl MCH 30.4 (25.7-32.2) pg MCHC 33.0 (32.2-35.5) g/dl RDW Std Deviation 43.0 (35.1-43.9) fL Plt Count 140 L (163-337) K/mm3 MPV 10.8 (9.4-12.3) fl Neut % (Auto) 61.9 (34.0-67.9) % Lymph % (Auto) 20.2 L (21.8-53.1) % [place] % (Auto) 15.2 H (5.3-12.2) % Eos % (Auto) 2.3 (0.8-7.0) Baso % (Auto) 0.2 (0.1-1.2) % Neut # (Auto) 5.71 H (1.78-5.38) K/mm3 Lymph # (Auto) 1.86 (1.32-3.57) K/mm3 [place] # (Auto) 1.40 H (0.30-0.82) K/mm3 Eos # (Auto) 0.21 (0.04-0.54) K/mm3 Baso # (Auto) 0.02 (0.01-0.08) K/mm3 Manual Slide Review Abnormal smear Sodium 136 (136-145) mEq/L Potassium 3.8 (3.5-5.1) mEq/L Chloride 102 (98-107) mEq/L Carbon Dioxide 26 (21-32) mEq/L Anion Gap 11.8 (5-15) BUN 24 H (7-18) mg/dL Creatinine 1.9 H (0.7-1.3) mg/dL Est Cr Clr Drug Dosing 30.44 mL/min Estimated GFR (MDRD) 35 (>60) mL/min BUN/Creatinine Ratio 12.6 L (14-18) Glucose 120 H (83-115) mg/dL POC Glucose 109 (83-110) mg/dL Calcium 8.7 (8.5-10.1) mg/dL Magnesium 1.7 L (1.8-2.4) mg/dl Total Bilirubin 0.8 (0.2-1.0) mg/dL AST 21 (15-37) U/L ALT 23 (16-63) U/L Alkaline Phosphatase 48 (46-116) U/L Total Protein 6.2 L (6.4-8.2) g/dl Albumin 2.7 L (3.4-5.0) g/dl Globulin 3.5 gm/dL Albumin/Globulin Ratio 0.8 L (1-2) Urine Color (Yellow) Urine Appearance (Clear) Urine pH (5.0-8.0) Ur Specific [place] (1.005-1.030) Urine Protein (Negative) Urine Glucose (UA) (Negative) Urine Ketones (Negative) Urine Occult Blood (Negative) Urine Nitrite (Negative) Urine Bilirubin (Negative) Urine Urobilinogen (0.2-1.0) Ur Leukocyte Esterase (Negative) Urine RBC (0-5) /hpf Urine WBC (0-5) /hpf Ur Squamous Epith Cells (0-5) /hpf Urine Bacteria (FEW) /hpf Hyaline Casts (0-5) /lpf Urine Mucus (FEW) /hpf 03/09/19 03/09/19 03/09/19 Range/Units 11:48 17:05 18:25 WBC (4.23-9.07) K/mm3 RBC (4.63-6.08) M/mm3 Hgb (13.7-17.5) gm/dl Hct (40.1-51.0) % MCV (79.0-92.2) fl MCH (25.7-32.2) pg MCHC (32.2-35.5) g/dl RDW Std Deviation (35.1-43.9) fL Plt Count (163-337) K/mm3 MPV (9.4-12.3) fl Neut % (Auto) (34.0-67.9) % Lymph % (Auto) (21.8-53.1) % [place] % (Auto) (5.3-12.2) % Eos % (Auto) (0.8-7.0) Baso % (Auto) (0.1-1.2) % Neut # (Auto) (1.78-5.38) K/mm3 Lymph # (Auto) (1.32-3.57) K/mm3 [place] # (Auto) (0.30-0.82) K/mm3 Eos # (Auto) (0.04-0.54) K/mm3 Baso # (Auto) (0.01-0.08) K/mm3 Manual Slide Review Sodium (136-145) mEq/L Potassium (3.5-5.1) mEq/L Chloride (98-107) mEq/L Carbon Dioxide (21-32) mEq/L Anion Gap (5-15) BUN (7-18) mg/dL Creatinine (0.7-1.3) mg/dL Est Cr Clr Drug Dosing mL/min Estimated GFR (MDRD) (>60) mL/min BUN/Creatinine Ratio (14-18) Glucose (83-115) mg/dL POC Glucose 114 H 124 H (83-110) mg/dL Calcium (8.5-10.1) mg/dL Magnesium (1.8-2.4) mg/dl Total Bilirubin (0.2-1.0) mg/dL AST (15-37) U/L ALT (16-63) U/L Alkaline Phosphatase (46-116) U/L Total Protein (6.4-8.2) g/dl Albumin (3.4-5.0) g/dl Globulin gm/dL Albumin/Globulin Ratio (1-2) Urine Color Yellow (Yellow) Urine Appearance Clear (Clear) Urine pH 6.0 (5.0-8.0) Ur Specific [place] 1.025 (1.005-1.030) Urine Protein Negative (Negative) Urine Glucose (UA) Negative (Negative) Urine Ketones Negative (Negative) Urine Occult Blood Negative (Negative) Urine Nitrite Negative (Negative) Urine Bilirubin Negative (Negative) Urine Urobilinogen 0.2 (0.2-1.0) Ur Leukocyte Esterase Negative (Negative) Urine RBC 0-5 (0-5) /hpf Urine WBC 0-5 (0-5) /hpf Ur Squamous Epith Cells 5-10 H (0-5) /hpf Urine Bacteria Not seen (FEW) /hpf Hyaline Casts 5-10 H (0-5) /lpf Urine Mucus Not seen (FEW) /hpf 03/09/19 Range/Units 20:44 WBC (4.23-9.07) K/mm3 RBC (4.63-6.08) M/mm3 Hgb (13.7-17.5) gm/dl Hct (40.1-51.0) % MCV (79.0-92.2) fl MCH (25.7-32.2) pg MCHC (32.2-35.5) g/dl RDW Std Deviation (35.1-43.9) fL Plt Count (163-337) K/mm3 MPV (9.4-12.3) fl Neut % (Auto) (34.0-67.9) % Lymph % (Auto) (21.8-53.1) % [place] % (Auto) (5.3-12.2) % Eos % (Auto) (0.8-7.0) Baso % (Auto) (0.1-1.2) % Neut # (Auto) (1.78-5.38) K/mm3 Lymph # (Auto) (1.32-3.57) K/mm3 [place] # (Auto) (0.30-0.82) K/mm3 Eos # (Auto) (0.04-0.54) K/mm3 Baso # (Auto) (0.01-0.08) K/mm3 Manual Slide Review Sodium (136-145) mEq/L Potassium (3.5-5.1) mEq/L Chloride (98-107) mEq/L Carbon Dioxide (21-32) mEq/L Anion Gap (5-15) BUN (7-18) mg/dL Creatinine (0.7-1.3) mg/dL Est Cr Clr Drug Dosing mL/min Estimated GFR (MDRD) (>60) mL/min BUN/Creatinine Ratio (14-18) Glucose (83-115) mg/dL POC Glucose 115 H (83-110) mg/dL Calcium (8.5-10.1) mg/dL Magnesium (1.8-2.4) mg/dl Total Bilirubin (0.2-1.0) mg/dL AST (15-37) U/L ALT (16-63) U/L Alkaline Phosphatase (46-116) U/L Total Protein (6.4-8.2) g/dl Albumin (3.4-5.0) g/dl Globulin gm/dL Albumin/Globulin Ratio (1-2) Urine Color (Yellow) Urine Appearance (Clear) Urine pH (5.0-8.0) Ur Specific [place] (1.005-1.030) Urine Protein (Negative) Urine Glucose (UA) (Negative) Urine Ketones (Negative) Urine Occult Blood (Negative) Urine Nitrite (Negative) Urine Bilirubin (Negative) Urine Urobilinogen (0.2-1.0) Ur Leukocyte Esterase (Negative) Urine RBC (0-5) /hpf Urine WBC (0-5) /hpf Ur Squamous Epith Cells (0-5) /hpf Urine Bacteria (FEW) /hpf Hyaline Casts (0-5) /lpf Urine Mucus (FEW) /hpf Med Orders - Current: Current Medications Amlodipine Besylate (Norvasc) 10 mg PO DAILY [facility] Last Admin: 03/09/19 08:09 Dose: 10 mg Apixaban (Eliquis) 2.5 mg PO BID [facility] Last Admin: 03/09/19 21:00 Dose: 2.5 mg Bisacodyl (Dulcolax) 5 mg PO DAILY PRN PRN Reason: Constipation Cholecalciferol (Vitamin D3) 5,000 unit PO DAILY [facility] Last Admin: 03/09/19 08:09 Dose: 5,000 unit Cyclobenzaprine HCl (Flexeril) 5 mg PO BID PRN PRN Reason: Spasms Last Admin: 03/09/19 21:01 Dose: 5 mg Docusate Sodium (Colace) 100 mg PO BID [facility] Last Admin: 03/09/19 21:00 Dose: 100 mg Famotidine (Pepcid) 20 mg PO DAILY [facility] Last Admin: 03/09/19 08:09 Dose: 20 mg Hydrochlorothiazide (Hydrochlorothiazide) 25 mg PO DAILY [facility] Last Admin: 03/09/19 08:09 Dose: 25 mg Hydromorphone HCl (Dilaudid) 0.2 mg IVPUSH Q2H PRN PRN Reason: Pain (moderate 4-6) Last Admin: 03/07/19 22:08 Dose: 0.2 mg Insulin Human Lispro (Humalog) 0 unit SUBCUT QIDACANDBED [facility]; Protocol Last Admin: 03/09/19 21:04 Dose: Not Given Levothyroxine Sodium (Synthroid) 150 mcg PO ACBREAKFAST [facility] Last Admin: 03/09/19 06:35 Dose: 150 mcg Metoprolol Succinate (Toprol Xl) 100 mg PO DAILY [facility] Last Admin: 03/09/19 08:08 Dose: 100 mg Naloxone HCl (Narcan) 0.1 mg IVPUSH Q5M PRN PRN Reason: Oversedation Ondansetron HCl (Zofran) 4 mg IVPUSH Q6H PRN PRN Reason: Nausea/Vomiting Oxycodone/Acetaminophen (Percocet 325-5 Mg) 1 - 2 tab PO Q4H PRN PRN Reason: Pain Last Admin: 03/09/19 21:01 Dose: 1 tab Senna (Senna) 8.6 mg PO BID PRN PRN Reason: Constipation Tamsulosin HCl (Flomax) 0.4 mg PO BEDTIME [facility] Last Admin: 03/09/19 21:01 Dose: 0.4 mg Discontinued Medications Acetaminophen (Tylenol) 975 mg PO ONETIME [facility] Stop: 03/07/19 12:00 Last Admin: 03/07/19 10:01 Dose: 975 mg Bupivacaine HCl (Sensorcaine-Mpf 0.25%) Confirm Administered Dose 30 ml .ROUTE .STK-MED ONE Stop: 03/07/19 10:09 Last Admin: 03/07/19 13:05 Dose: 30 ml Cefazolin Sodium (Ancef) Confirm Administered Dose 2 gm .ROUTE .STK-MED ONE Stop: 03/07/19 10:09 Last Admin: 03/07/19 13:00 Dose: 2 gm Morphine Sulfate 8 mg/Epinephrine HCl 0.3 mg/Cefuroxime Sodium 750 mg/Sodium Chloride 27.9 ml 0 mg .XX ONETIME ONE Stop: 03/07/19 10:01 Last Admin: 03/07/19 13:04 Dose: 758.3 mg Cyclobenzaprine HCl (Flexeril) 10 mg PO ONETIME ONE Stop: 03/08/19 20:31 Last Admin: 03/08/19 20:49 Dose: 10 mg Ephedrine Sulfate (Ephedrine Sulfate) 5 mg IVPUSH ASDIRECTED PRN PRN Reason: Hypotension Stop: 03/07/19 18:00 Famotidine (Pepcid) 20 mg PO Q12H [facility] Last Admin: 03/08/19 08:16 Dose: 20 mg Fentanyl (Sublimaze) Confirm Administered Dose 100 mcg .ROUTE .STK-MED ONE Stop: 03/07/19 10:37 Lactated Ringer's (Ringers, Lactated) 1,000 mls @ 125 mls/hr IV ASDIRECTED [facility] Stop: 03/07/19 18:00 Last Admin: 03/07/19 10:05 Dose: 125 mls/hr Cefazolin Sodium/Dextrose 2 gm (/ Premix) 50 mls @ 100 mls/hr IV Q8H [facility] Stop: 03/08/19 13:29 Last Admin: 03/08/19 12:13 Dose: Not Given Lidocaine HCl (Xylocaine-Mpf 1%) Confirm Administered Dose 4 mls @ as directed .ROUTE .STK-MED ONE Stop: 03/07/19 10:38 Lactated Ringer's (Ringers, Lactated) Confirm Administered Dose 1,000 mls @ as directed .ROUTE .STK-MED ONE Stop: 03/07/19 11:06 Sodium Chloride (Normal Saline) 1,000 mls @ 125 mls/hr IV ASDIRECTED [place] Sodium Chloride (Normal Saline) 1,000 mls @ 125 mls/hr IV ASDIRECTED [facility] Last Admin: 03/08/19 00:59 Dose: 125 mls/hr Magnesium Sulfate 2 gm/ Premix 50 mls @ 25 mls/hr IV ONETIME ONE Stop: 03/09/19 09:29 Last Admin: 03/09/19 07:33 Dose: 25 mls/hr Iodine (Iodine 2% Mild Tincture) Confirm Administered Dose 30 ml .ROUTE .STK- MED ONE Stop: 03/07/19 10:09 Last Admin: 03/07/19 12:57 Dose: 18 ml Lidocaine/Sodium Bicarbonate (Buffered Lidocaine 1% In Ns 8.4%) 0.25 ml IDERM ONETIME PRN PRN Reason: Prior to IV Start Stop: 03/07/19 18:00 Losartan Potassium (Cozaar) 150 mg PO DAILY [facility] Midazolam HCl (Versed 1 Mg/Ml) Confirm Administered Dose 2 mg .ROUTE .STK-MED ONE Stop: 03/07/19 11:06 Ondansetron HCl (Zofran) 4 mg IVPUSH ONETIME PRN PRN Reason: Nausea/Vomiting Stop: 03/07/19 18:00 Oxycodone HCl (Oxycontin) 10 mg PO ONETIME [facility] Stop: 03/07/19 16:00 Last Admin: 03/07/19 10:01 Dose: 10 mg Oxycodone HCl (Oxycodone) 5 mg PO ONETIME ONE Stop: 03/08/19 14:01 Last Admin: 03/08/19 16:00 Dose: Not Given Pregabalin (Lyrica) 50 mg PO ONETIME [facility] Stop: 03/07/19 12:00 Last Admin: 03/07/19 10:01 Dose: 50 mg Propofol (Diprivan 20 Ml) Confirm Administered Dose 200 mg .ROUTE .STK-MED ONE Stop: 03/07/19 10:36 Propofol (Diprivan 20 Ml) Confirm Administered Dose 200 mg .ROUTE .STK-MED ONE Stop: 03/07/19 12:22 Ropivacaine (Naropin 0.5%) Confirm Administered Dose 30 ml .ROUTE .STK-MED ONE Stop: 03/07/19 11:24 Sodium Chloride (Saline Flush) 10 ml FLUSH ASDIRECTED PRN PRN Reason: Keep Vein Open Stop: 03/07/19 18:00 Tranexamic Acid (Cyklokapron) Confirm Administered Dose 1,000 mg .ROUTE .STK- MED ONE Stop: 03/07/19 10:09 Last Admin: 03/07/19 13:12 Dose: 1,000 mg Vancomycin HCl (Vancomycin) Confirm Administered Dose 1 gm .ROUTE .STK-MED ONE Stop: 03/07/19 10:09 Last Admin: 03/07/19 13:13 Dose: 1 gm - Exam Wound/Incisions: Dressing Dry and Intact General: Alert, Cooperative, No Acute Distress Lungs: Normal Respiratory Effort Extremities: Other (Pt able to sense light touch at BLE. [place]'s negative for BLE.) Sepsis Event Note - Evaluation Sepsis Screening Result: No Definite Risk - Focused Exam Vital Signs: Vital Signs Temp Pulse Resp BP Pulse Ox 03/09/19 19:51 98.8 F 78 19 125/61 93 L 03/09/19 15:08 97.3 F 79 24 H 116/56 L 93 L 03/09/19 12:21 97.9 F 78 18 123/62 93 L Date Exam was Performed: 03/09/19 Time Exam was Performed: 22:13 - Problem List Review Problem List Initiated/Reviewed/Updated: Yes - My Orders Last 24 Hours: Active Orders 24 hr Category Date Time Status Consult to Case Management/Supervisor Composing Room [CONS] Cons 03/09/19 07:20 Active Routine BASIC METABOLIC PANEL,BMP [CHEM] AM Lab 03/10/19 05:11 Ordered CBC WITH AUTO DIFF [HEME] AM Lab 03/10/19 05:11 Ordered MAGNESIUM [CHEM] AM Lab 03/10/19 05:11 Ordered Famotidine [Pepcid] Med 03/09/19 09:00 Active 20 mg PO DAILY Medication Orders Amlodipine Besylate (Norvasc) 10 mg PO DAILY [facility] Last Admin: 03/09/19 08:09 Dose: 10 mg Admin: 03/08/19 08:17 Dose: 10 mg Apixaban (Eliquis) 2.5 mg PO BID [facility] Last Admin: 03/09/19 21:00 Dose: 2.5 mg Admin: 03/09/19 08:09 Dose: 2.5 mg Admin: 03/08/19 20:49 Dose: 2.5 mg Admin: 03/08/19 08:17 Dose: 2.5 mg Bisacodyl (Dulcolax) 5 mg PO DAILY PRN PRN Reason: Constipation Cholecalciferol (Vitamin D3) 5,000 unit PO DAILY [facility] Last Admin: 03/09/19 08:09 Dose: 5,000 unit Admin: 03/08/19 08:16 Dose: 5,000 unit Cyclobenzaprine HCl (Flexeril) 5 mg PO BID PRN PRN Reason: Spasms Last Admin: 03/09/19 21:01 Dose: 5 mg Admin: 03/09/19 08:08 Dose: 5 mg Admin: 03/08/19 08:20 Dose: 5 mg Admin: 03/07/19 18:07 Dose: 5 mg Docusate Sodium (Colace) 100 mg PO BID [facility] Last Admin: 03/09/19 21:00 Dose: 100 mg Admin: 03/09/19 08:09 Dose: 100 mg Admin: 03/08/19 20:49 Dose: 100 mg Admin: 03/08/19 08:16 Dose: 100 mg Admin: 03/07/19 20:41 Dose: 100 mg Famotidine (Pepcid) 20 mg PO DAILY [facility] Last Admin: 03/09/19 08:09 Dose: 20 mg Hydrochlorothiazide (Hydrochlorothiazide) 25 mg PO DAILY [facility] Last Admin: 03/09/19 08:09 Dose: 25 mg Admin: 03/08/19 08:16 Dose: 25 mg Hydromorphone HCl (Dilaudid) 0.2 mg IVPUSH Q2H PRN PRN Reason: Pain (moderate 4-6) Last Admin: 03/07/19 22:08 Dose: 0.2 mg Insulin Human Lispro (Humalog) 0 unit SUBCUT QIDACANDBED [facility]; Protocol Last Admin: 03/09/19 21:04 Dose: Not Given Admin: 03/09/19 17:07 Dose: Not Given Admin: 03/09/19 12:49 Dose: Admin: 03/09/19 06:50 Dose: Not Given Admin: 03/08/19 21:44 Dose: Not Given Admin: 03/08/19 18:13 Dose: Admin: 03/08/19 12:12 Dose: Admin: 03/08/19 06:48 Dose: Not Given Admin: 03/07/19 22:03 Dose: Not Given Admin: 03/07/19 17:40 Dose: Not Given Levothyroxine Sodium (Synthroid) 150 mcg PO ACBREAKFAST [facility] Last Admin: 03/09/19 06:35 Dose: 150 mcg Admin: 03/08/19 06:24 Dose: 150 mcg Metoprolol Succinate (Toprol Xl) 100 mg PO DAILY [facility] Last Admin: 03/09/19 08:08 Dose: 100 mg Admin: 03/08/19 08:17 Dose: 100 mg Naloxone HCl (Narcan) 0.1 mg IVPUSH Q5M PRN PRN Reason: Oversedation Ondansetron HCl (Zofran) 4 mg IVPUSH Q6H PRN PRN Reason: Nausea/Vomiting Oxycodone/Acetaminophen (Percocet 325-5 Mg) 1 - 2 tab PO Q4H PRN PRN Reason: Pain Last Admin: 03/09/19 21:01 Dose: 1 tab Admin: 03/09/19 17:08 Dose: 1 tab Admin: 03/09/19 13:02 Dose: 1 tab Admin: 03/09/19 09:54 Dose: 1 tab Admin: 03/09/19 04:48 Dose: 2 tab Admin: 03/08/19 23:51 Dose: 2 tab Admin: 03/08/19 18:53 Dose: 1 tab Admin: 03/08/19 16:32 Dose: 1 tab Admin: 03/08/19 11:39 Dose: 2 tab Admin: 03/08/19 06:24 Dose: 2 tab Admin: 03/08/19 00:59 Dose: 2 tab Admin: 03/07/19 20:40 Dose: 2 tab Admin: 03/07/19 15:27 Dose: 2 tab Senna (Senna) 8.6 mg PO BID PRN PRN Reason: Constipation Tamsulosin HCl (Flomax) 0.4 mg PO BEDTIME [facility] Last Admin: 03/09/19 21:01 Dose: 0.4 mg Admin: 03/08/19 20:49 Dose: 0.4 mg Admin: 03/07/19 20:41 Dose: 0.4 mg - Assessment Assessment (Free Text/Narrative):: POD#1 - left TKA - Plan Plan (Free Text/Narrative):: 1. Hgb 13.1. Renal function stable. 2. The pt has been slow to progress with therapies and will remain in Hospital for continued monitoring and participation in therapies. Suspect d/c to NH for continued rehabilitation vs. home with home health nursing and therapies. 3. Further orders per Hospitalist service. 4. 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 Frequent mobility encouraged and pt has TEDs and SCDs in place. The pt's case has been discussed with Dr. Peters.
--- NOTE | 2019-03-09 22:21 | PCM.SURGPN ---
- General Info Date of Service: 03/09/19 POD#: 2 - Patient Data Vitals - Most Recent: Last Vital Signs Temp 98.8 F 03/09/19 19:51 Pulse 78 03/09/19 19:51 Resp 19 03/09/19 19:51 BP 125/61 03/09/19 19:51 Pulse Ox 93 L 03/09/19 19:51 Weight - Most Recent: 258 lb 9.6 oz I&O - Last 24 Hours: Intake & Output 03/09/19 03/09/19 03/09/19 06:59 14:59 22:59 Intake Total 800 480 280 Output Total 700 1300 Balance 100 480 -1020 Lab Results Last 24 Hrs: Laboratory Results - last 24 hr 03/09/19 03/09/19 03/09/19 Range/Units 05:11 05:11 06:33 WBC 9.22 H (4.23-9.07) K/mm3 RBC 4.15 L (4.63-6.08) M/mm3 Hgb 12.6 L (13.7-17.5) gm/dl Hct 38.2 L (40.1-51.0) % MCV 92.0 (79.0-92.2) fl MCH 30.4 (25.7-32.2) pg MCHC 33.0 (32.2-35.5) g/dl RDW Std Deviation 43.0 (35.1-43.9) fL Plt Count 140 L (163-337) K/mm3 MPV 10.8 (9.4-12.3) fl Neut % (Auto) 61.9 (34.0-67.9) % Lymph % (Auto) 20.2 L (21.8-53.1) % Hudson % (Auto) 15.2 H (5.3-12.2) % Eos % (Auto) 2.3 (0.8-7.0) Baso % (Auto) 0.2 (0.1-1.2) % Neut # (Auto) 5.71 H (1.78-5.38) K/mm3 Lymph # (Auto) 1.86 (1.32-3.57) K/mm3 Hudson # (Auto) 1.40 H (0.30-0.82) K/mm3 Eos # (Auto) 0.21 (0.04-0.54) K/mm3 Baso # (Auto) 0.02 (0.01-0.08) K/mm3 Manual Slide Review Abnormal smear Sodium 136 (136-145) mEq/L Potassium 3.8 (3.5-5.1) mEq/L Chloride 102 (98-107) mEq/L Carbon Dioxide 26 (21-32) mEq/L Anion Gap 11.8 (5-15) BUN 24 H (7-18) mg/dL Creatinine 1.9 H (0.7-1.3) mg/dL Est Cr Clr Drug Dosing 30.44 mL/min Estimated GFR (MDRD) 35 (>60) mL/min BUN/Creatinine Ratio 12.6 L (14-18) Glucose 120 H (83-115) mg/dL POC Glucose 109 (83-110) mg/dL Calcium 8.7 (8.5-10.1) mg/dL Magnesium 1.7 L (1.8-2.4) mg/dl Total Bilirubin 0.8 (0.2-1.0) mg/dL AST 21 (15-37) U/L ALT 23 (16-63) U/L Alkaline Phosphatase 48 (46-116) U/L Total Protein 6.2 L (6.4-8.2) g/dl Albumin 2.7 L (3.4-5.0) g/dl Globulin 3.5 gm/dL Albumin/Globulin Ratio 0.8 L (1-2) Urine Color (Yellow) Urine Appearance (Clear) Urine pH (5.0-8.0) Ur Specific Palm (1.005-1.030) Urine Protein (Negative) Urine Glucose (UA) (Negative) Urine Ketones (Negative) Urine Occult Blood (Negative) Urine Nitrite (Negative) Urine Bilirubin (Negative) Urine Urobilinogen (0.2-1.0) Ur Leukocyte Esterase (Negative) Urine RBC (0-5) /hpf Urine WBC (0-5) /hpf Ur Squamous Epith Cells (0-5) /hpf Urine Bacteria (FEW) /hpf Hyaline Casts (0-5) /lpf Urine Mucus (FEW) /hpf 03/09/19 03/09/19 03/09/19 Range/Units 11:48 17:05 18:25 WBC (4.23-9.07) K/mm3 RBC (4.63-6.08) M/mm3 Hgb (13.7-17.5) gm/dl Hct (40.1-51.0) % MCV (79.0-92.2) fl MCH (25.7-32.2) pg MCHC (32.2-35.5) g/dl RDW Std Deviation (35.1-43.9) fL Plt Count (163-337) K/mm3 MPV (9.4-12.3) fl Neut % (Auto) (34.0-67.9) % Lymph % (Auto) (21.8-53.1) % Hudson % (Auto) (5.3-12.2) % Eos % (Auto) (0.8-7.0) Baso % (Auto) (0.1-1.2) % Neut # (Auto) (1.78-5.38) K/mm3 Lymph # (Auto) (1.32-3.57) K/mm3 Hudson # (Auto) (0.30-0.82) K/mm3 Eos # (Auto) (0.04-0.54) K/mm3 Baso # (Auto) (0.01-0.08) K/mm3 Manual Slide Review Sodium (136-145) mEq/L Potassium (3.5-5.1) mEq/L Chloride (98-107) mEq/L Carbon Dioxide (21-32) mEq/L Anion Gap (5-15) BUN (7-18) mg/dL Creatinine (0.7-1.3) mg/dL Est Cr Clr Drug Dosing mL/min Estimated GFR (MDRD) (>60) mL/min BUN/Creatinine Ratio (14-18) Glucose (83-115) mg/dL POC Glucose 114 H 124 H (83-110) mg/dL Calcium (8.5-10.1) mg/dL Magnesium (1.8-2.4) mg/dl Total Bilirubin (0.2-1.0) mg/dL AST (15-37) U/L ALT (16-63) U/L Alkaline Phosphatase (46-116) U/L Total Protein (6.4-8.2) g/dl Albumin (3.4-5.0) g/dl Globulin gm/dL Albumin/Globulin Ratio (1-2) Urine Color Yellow (Yellow) Urine Appearance Clear (Clear) Urine pH 6.0 (5.0-8.0) Ur Specific Palm 1.025 (1.005-1.030) Urine Protein Negative (Negative) Urine Glucose (UA) Negative (Negative) Urine Ketones Negative (Negative) Urine Occult Blood Negative (Negative) Urine Nitrite Negative (Negative) Urine Bilirubin Negative (Negative) Urine Urobilinogen 0.2 (0.2-1.0) Ur Leukocyte Esterase Negative (Negative) Urine RBC 0-5 (0-5) /hpf Urine WBC 0-5 (0-5) /hpf Ur Squamous Epith Cells 5-10 H (0-5) /hpf Urine Bacteria Not seen (FEW) /hpf Hyaline Casts 5-10 H (0-5) /lpf Urine Mucus Not seen (FEW) /hpf 03/09/19 Range/Units 20:44 WBC (4.23-9.07) K/mm3 RBC (4.63-6.08) M/mm3 Hgb (13.7-17.5) gm/dl Hct (40.1-51.0) % MCV (79.0-92.2) fl MCH (25.7-32.2) pg MCHC (32.2-35.5) g/dl RDW Std Deviation (35.1-43.9) fL Plt Count (163-337) K/mm3 MPV (9.4-12.3) fl Neut % (Auto) (34.0-67.9) % Lymph % (Auto) (21.8-53.1) % Hudson % (Auto) (5.3-12.2) % Eos % (Auto) (0.8-7.0) Baso % (Auto) (0.1-1.2) % Neut # (Auto) (1.78-5.38) K/mm3 Lymph # (Auto) (1.32-3.57) K/mm3 Hudson # (Auto) (0.30-0.82) K/mm3 Eos # (Auto) (0.04-0.54) K/mm3 Baso # (Auto) (0.01-0.08) K/mm3 Manual Slide Review Sodium (136-145) mEq/L Potassium (3.5-5.1) mEq/L Chloride (98-107) mEq/L Carbon Dioxide (21-32) mEq/L Anion Gap (5-15) BUN (7-18) mg/dL Creatinine (0.7-1.3) mg/dL Est Cr Clr Drug Dosing mL/min Estimated GFR (MDRD) (>60) mL/min BUN/Creatinine Ratio (14-18) Glucose (83-115) mg/dL POC Glucose 115 H (83-110) mg/dL Calcium (8.5-10.1) mg/dL Magnesium (1.8-2.4) mg/dl Total Bilirubin (0.2-1.0) mg/dL AST (15-37) U/L ALT (16-63) U/L Alkaline Phosphatase (46-116) U/L Total Protein (6.4-8.2) g/dl Albumin (3.4-5.0) g/dl Globulin gm/dL Albumin/Globulin Ratio (1-2) Urine Color (Yellow) Urine Appearance (Clear) Urine pH (5.0-8.0) Ur Specific Palm (1.005-1.030) Urine Protein (Negative) Urine Glucose (UA) (Negative) Urine Ketones (Negative) Urine Occult Blood (Negative) Urine Nitrite (Negative) Urine Bilirubin (Negative) Urine Urobilinogen (0.2-1.0) Ur Leukocyte Esterase (Negative) Urine RBC (0-5) /hpf Urine WBC (0-5) /hpf Ur Squamous Epith Cells (0-5) /hpf Urine Bacteria (FEW) /hpf Hyaline Casts (0-5) /lpf Urine Mucus (FEW) /hpf Med Orders - Current: Current Medications Amlodipine Besylate (Norvasc) 10 mg PO DAILY [facility] Last Admin: 03/09/19 08:09 Dose: 10 mg Apixaban (Eliquis) 2.5 mg PO BID [facility] Last Admin: 03/09/19 21:00 Dose: 2.5 mg Bisacodyl (Dulcolax) 5 mg PO DAILY PRN PRN Reason: Constipation Cholecalciferol (Vitamin D3) 5,000 unit PO DAILY [facility] Last Admin: 03/09/19 08:09 Dose: 5,000 unit Cyclobenzaprine HCl (Flexeril) 5 mg PO BID PRN PRN Reason: Spasms Last Admin: 03/09/19 21:01 Dose: 5 mg Docusate Sodium (Colace) 100 mg PO BID [facility] Last Admin: 03/09/19 21:00 Dose: 100 mg Famotidine (Pepcid) 20 mg PO DAILY [facility] Last Admin: 03/09/19 08:09 Dose: 20 mg Hydrochlorothiazide (Hydrochlorothiazide) 25 mg PO DAILY [facility] Last Admin: 03/09/19 08:09 Dose: 25 mg Hydromorphone HCl (Dilaudid) 0.2 mg IVPUSH Q2H PRN PRN Reason: Pain (moderate 4-6) Last Admin: 03/07/19 22:08 Dose: 0.2 mg Insulin Human Lispro (Humalog) 0 unit SUBCUT QIDACANDBED [facility]; Protocol Last Admin: 03/09/19 21:04 Dose: Not Given Levothyroxine Sodium (Synthroid) 150 mcg PO ACBREAKFAST [facility] Last Admin: 03/09/19 06:35 Dose: 150 mcg Metoprolol Succinate (Toprol Xl) 100 mg PO DAILY [facility] Last Admin: 03/09/19 08:08 Dose: 100 mg Naloxone HCl (Narcan) 0.1 mg IVPUSH Q5M PRN PRN Reason: Oversedation Ondansetron HCl (Zofran) 4 mg IVPUSH Q6H PRN PRN Reason: Nausea/Vomiting Oxycodone/Acetaminophen (Percocet 325-5 Mg) 1 - 2 tab PO Q4H PRN PRN Reason: Pain Last Admin: 03/09/19 21:01 Dose: 1 tab Senna (Senna) 8.6 mg PO BID PRN PRN Reason: Constipation Tamsulosin HCl (Flomax) 0.4 mg PO BEDTIME [facility] Last Admin: 03/09/19 21:01 Dose: 0.4 mg Discontinued Medications Acetaminophen (Tylenol) 975 mg PO ONETIME [facility] Stop: 03/07/19 12:00 Last Admin: 03/07/19 10:01 Dose: 975 mg Bupivacaine HCl (Sensorcaine-Mpf 0.25%) Confirm Administered Dose 30 ml .ROUTE .STK-MED ONE Stop: 03/07/19 10:09 Last Admin: 03/07/19 13:05 Dose: 30 ml Cefazolin Sodium (Ancef) Confirm Administered Dose 2 gm .ROUTE .STK-MED ONE Stop: 03/07/19 10:09 Last Admin: 03/07/19 13:00 Dose: 2 gm Morphine Sulfate 8 mg/Epinephrine HCl 0.3 mg/Cefuroxime Sodium 750 mg/Sodium Chloride 27.9 ml 0 mg .XX ONETIME ONE Stop: 03/07/19 10:01 Last Admin: 03/07/19 13:04 Dose: 758.3 mg Cyclobenzaprine HCl (Flexeril) 10 mg PO ONETIME ONE Stop: 03/08/19 20:31 Last Admin: 03/08/19 20:49 Dose: 10 mg Ephedrine Sulfate (Ephedrine Sulfate) 5 mg IVPUSH ASDIRECTED PRN PRN Reason: Hypotension Stop: 03/07/19 18:00 Famotidine (Pepcid) 20 mg PO Q12H [facility] Last Admin: 03/08/19 08:16 Dose: 20 mg Fentanyl (Sublimaze) Confirm Administered Dose 100 mcg .ROUTE .STK-MED ONE Stop: 03/07/19 10:37 Lactated Ringer's (Ringers, Lactated) 1,000 mls @ 125 mls/hr IV ASDIRECTED [facility] Stop: 03/07/19 18:00 Last Admin: 03/07/19 10:05 Dose: 125 mls/hr Cefazolin Sodium/Dextrose 2 gm (/ Premix) 50 mls @ 100 mls/hr IV Q8H [facility] Stop: 03/08/19 13:29 Last Admin: 03/08/19 12:13 Dose: Not Given Lidocaine HCl (Xylocaine-Mpf 1%) Confirm Administered Dose 4 mls @ as directed .ROUTE .STK-MED ONE Stop: 03/07/19 10:38 Lactated Ringer's (Ringers, Lactated) Confirm Administered Dose 1,000 mls @ as directed .ROUTE .STK-MED ONE Stop: 03/07/19 11:06 Sodium Chloride (Normal Saline) 1,000 mls @ 125 mls/hr IV ASDIRECTED [facility] Sodium Chloride (Normal Saline) 1,000 mls @ 125 mls/hr IV ASDIRECTED [facility] Last Admin: 03/08/19 00:59 Dose: 125 mls/hr Magnesium Sulfate 2 gm/ Premix 50 mls @ 25 mls/hr IV ONETIME ONE Stop: 03/09/19 09:29 Last Admin: 03/09/19 07:33 Dose: 25 mls/hr Iodine (Iodine 2% Mild Tincture) Confirm Administered Dose 30 ml .ROUTE .STK- MED ONE Stop: 03/07/19 10:09 Last Admin: 03/07/19 12:57 Dose: 18 ml Lidocaine/Sodium Bicarbonate (Buffered Lidocaine 1% In Ns 8.4%) 0.25 ml IDERM ONETIME PRN PRN Reason: Prior to IV Start Stop: 03/07/19 18:00 Losartan Potassium (Cozaar) 150 mg PO DAILY [facility] Midazolam HCl (Versed 1 Mg/Ml) Confirm Administered Dose 2 mg .ROUTE .STK-MED ONE Stop: 03/07/19 11:06 Ondansetron HCl (Zofran) 4 mg IVPUSH ONETIME PRN PRN Reason: Nausea/Vomiting Stop: 03/07/19 18:00 Oxycodone HCl (Oxycontin) 10 mg PO ONETIME [facility] Stop: 03/07/19 16:00 Last Admin: 03/07/19 10:01 Dose: 10 mg Oxycodone HCl (Oxycodone) 5 mg PO ONETIME ONE Stop: 03/08/19 14:01 Last Admin: 03/08/19 16:00 Dose: Not Given Pregabalin (Lyrica) 50 mg PO ONETIME [facility] Stop: 03/07/19 12:00 Last Admin: 03/07/19 10:01 Dose: 50 mg Propofol (Diprivan 20 Ml) Confirm Administered Dose 200 mg .ROUTE .STK-MED ONE Stop: 03/07/19 10:36 Propofol (Diprivan 20 Ml) Confirm Administered Dose 200 mg .ROUTE .STK-MED ONE Stop: 03/07/19 12:22 Ropivacaine (Naropin 0.5%) Confirm Administered Dose 30 ml .ROUTE .STK-MED ONE Stop: 03/07/19 11:24 Sodium Chloride (Saline Flush) 10 ml FLUSH ASDIRECTED PRN PRN Reason: Keep Vein Open Stop: 03/07/19 18:00 Tranexamic Acid (Cyklokapron) Confirm Administered Dose 1,000 mg .ROUTE .STK- MED ONE Stop: 03/07/19 10:09 Last Admin: 03/07/19 13:12 Dose: 1,000 mg Vancomycin HCl (Vancomycin) Confirm Administered Dose 1 gm .ROUTE .STK-MED ONE Stop: 03/07/19 10:09 Last Admin: 03/07/19 13:13 Dose: 1 gm Sepsis Event Note - Evaluation Sepsis Screening Result: No Definite Risk - Focused Exam Vital Signs: Vital Signs Temp Pulse Resp BP Pulse Ox 03/09/19 19:51 98.8 F 78 19 125/61 93 L 03/09/19 15:08 97.3 F 79 24 H 116/56 L 93 L 03/09/19 12:21 97.9 F 78 18 123/62 93 L Date Exam was Performed: 03/09/19 Time Exam was Performed: 22:19 - Problem List Review Problem List Initiated/Reviewed/Updated: Yes - My Orders Last 24 Hours: Active Orders 24 hr Category Date Time Status Consult to Case Management/Cost Control Supervisor [CONS] Cons 03/09/19 07:20 Active Routine BASIC METABOLIC PANEL,BMP [CHEM] AM Lab 03/10/19 05:11 Ordered CBC WITH AUTO DIFF [HEME] AM Lab 03/10/19 05:11 Ordered MAGNESIUM [CHEM] AM Lab 03/10/19 05:11 Ordered Famotidine [Pepcid] Med 03/09/19 09:00 Active 20 mg PO DAILY Medication Orders Amlodipine Besylate (Norvasc) 10 mg PO DAILY [facility] Last Admin: 03/09/19 08:09 Dose: 10 mg Admin: 03/08/19 08:17 Dose: 10 mg Apixaban (Eliquis) 2.5 mg PO BID [facility] Last Admin: 03/09/19 21:00 Dose: 2.5 mg Admin: 03/09/19 08:09 Dose: 2.5 mg Admin: 03/08/19 20:49 Dose: 2.5 mg Admin: 03/08/19 08:17 Dose: 2.5 mg Bisacodyl (Dulcolax) 5 mg PO DAILY PRN PRN Reason: Constipation Cholecalciferol (Vitamin D3) 5,000 unit PO DAILY [facility] Last Admin: 03/09/19 08:09 Dose: 5,000 unit Admin: 03/08/19 08:16 Dose: 5,000 unit Cyclobenzaprine HCl (Flexeril) 5 mg PO BID PRN PRN Reason: Spasms Last Admin: 03/09/19 21:01 Dose: 5 mg Admin: 03/09/19 08:08 Dose: 5 mg Admin: 03/08/19 08:20 Dose: 5 mg Admin: 03/07/19 18:07 Dose: 5 mg Docusate Sodium (Colace) 100 mg PO BID [facility] Last Admin: 03/09/19 21:00 Dose: 100 mg Admin: 03/09/19 08:09 Dose: 100 mg Admin: 03/08/19 20:49 Dose: 100 mg Admin: 03/08/19 08:16 Dose: 100 mg Admin: 03/07/19 20:41 Dose: 100 mg Famotidine (Pepcid) 20 mg PO DAILY [facility] Last Admin: 03/09/19 08:09 Dose: 20 mg Hydrochlorothiazide (Hydrochlorothiazide) 25 mg PO DAILY [facility] Last Admin: 03/09/19 08:09 Dose: 25 mg Admin: 03/08/19 08:16 Dose: 25 mg Hydromorphone HCl (Dilaudid) 0.2 mg IVPUSH Q2H PRN PRN Reason: Pain (moderate 4-6) Last Admin: 03/07/19 22:08 Dose: 0.2 mg Insulin Human Lispro (Humalog) 0 unit SUBCUT QIDACANDBED [facility]; Protocol Last Admin: 03/09/19 21:04 Dose: Not Given Admin: 03/09/19 17:07 Dose: Not Given Admin: 03/09/19 12:49 Dose: Admin: 03/09/19 06:50 Dose: Not Given Admin: 03/08/19 21:44 Dose: Not Given Admin: 03/08/19 18:13 Dose: Admin: 03/08/19 12:12 Dose: Admin: 03/08/19 06:48 Dose: Not Given Admin: 03/07/19 22:03 Dose: Not Given Admin: 03/07/19 17:40 Dose: Not Given Levothyroxine Sodium (Synthroid) 150 mcg PO ACBREAKFAST [facility] Last Admin: 03/09/19 06:35 Dose: 150 mcg Admin: 03/08/19 06:24 Dose: 150 mcg Metoprolol Succinate (Toprol Xl) 100 mg PO DAILY [facility] Last Admin: 03/09/19 08:08 Dose: 100 mg Admin: 03/08/19 08:17 Dose: 100 mg Naloxone HCl (Narcan) 0.1 mg IVPUSH Q5M PRN PRN Reason: Oversedation Ondansetron HCl (Zofran) 4 mg IVPUSH Q6H PRN PRN Reason: Nausea/Vomiting Oxycodone/Acetaminophen (Percocet 325-5 Mg) 1 - 2 tab PO Q4H PRN PRN Reason: Pain Last Admin: 03/09/19 21:01 Dose: 1 tab Admin: 03/09/19 17:08 Dose: 1 tab Admin: 03/09/19 13:02 Dose: 1 tab Admin: 03/09/19 09:54 Dose: 1 tab Admin: 03/09/19 04:48 Dose: 2 tab Admin: 03/08/19 23:51 Dose: 2 tab Admin: 03/08/19 18:53 Dose: 1 tab Admin: 03/08/19 16:32 Dose: 1 tab Admin: 03/08/19 11:39 Dose: 2 tab Admin: 03/08/19 06:24 Dose: 2 tab Admin: 03/08/19 00:59 Dose: 2 tab Admin: 03/07/19 20:40 Dose: 2 tab Admin: 03/07/19 15:27 Dose: 2 tab Senna (Senna) 8.6 mg PO BID PRN PRN Reason: Constipation Tamsulosin HCl (Flomax) 0.4 mg PO BEDTIME [facility] Last Admin: 03/09/19 21:01 Dose: 0.4 mg Admin: 03/08/19 20:49 Dose: 0.4 mg Admin: 03/07/19 20:41 Dose: 0.4 mg - Assessment Assessment (Free Text/Narrative):: POD#2 - s/p left TKA - Plan Plan (Free Text/Narrative):: 1. Hgb 12.6. Renal function stable. Blood sugars closely monitored and treated by Hospitalist service. 2. Eliquis BID. Progress with mobility as able. 3. Continued PT and OT. 4. Further orders per Hospitalist service. 5. Discharge to [place] tomorrow for continued rehabilitation. The pt was evaluated by Dr. Peters today. The pt will remain in Hospital > 96 hours while awaiting Residential placement and for continued monitoring and participation in therapies.
[2019-03-10] MEDS: Levothyroxine 50 MCG Tab PO SCH (06:17)
[2019-03-10] MEDS: Acetaminophen/oxyCODONE 325-5 MG Tab PO PRN (06:17)
[2019-03-10] MEDS: Insulin Lispro 100 Units/ML 3 ML Vial SUBCUT SCH ×2 (06:39→19:04)
--- NOTE | 2019-03-10 06:49 | PCM.SURGPN ---
- General Info Date of Service: 03/10/19 POD#: 3 Functional Status: Reports: Pain Controlled, Tolerating Diet, Ambulating, Urinating, Incentive Spirometry, Other (The pt has been slow to progress with therapy. He states he feels prepared for discharge to [facility] for continued therapy. ) - Patient Data Vitals - Most Recent: Last Vital Signs Temp 98.1 F 03/10/19 06:12 Pulse 101 H 03/10/19 06:12 Resp 18 03/10/19 06:12 BP 123/67 03/10/19 06:12 Pulse Ox 98 03/10/19 06:12 Weight - Most Recent: 257 lb 14.4 oz I&O - Last 24 Hours: Intake & Output 03/09/19 03/09/19 03/10/19 14:59 22:59 06:59 Intake Total 480 280 500 Output Total 1300 1450 Balance 480 -1020 -950 Lab Results Last 24 Hrs: Laboratory Results - last 24 hr 03/09/19 03/09/19 03/09/19 Range/Units 05:11 11:48 17:05 WBC (4.23-9.07) K/mm3 RBC (4.63-6.08) M/mm3 Hgb (13.7-17.5) gm/dl Hct (40.1-51.0) % MCV (79.0-92.2) fl MCH (25.7-32.2) pg MCHC (32.2-35.5) g/dl RDW Std Deviation (35.1-43.9) fL Plt Count (163-337) K/mm3 MPV (9.4-12.3) fl Neut % (Auto) (34.0-67.9) % Lymph % (Auto) (21.8-53.1) % Turner % (Auto) (5.3-12.2) % Eos % (Auto) (0.8-7.0) Baso % (Auto) (0.1-1.2) % Neut # (Auto) (1.78-5.38) K/mm3 Lymph # (Auto) (1.32-3.57) K/mm3 Turner # (Auto) (0.30-0.82) K/mm3 Eos # (Auto) (0.04-0.54) K/mm3 Baso # (Auto) (0.01-0.08) K/mm3 Manual Slide Review Abnormal smear Sodium (136-145) mEq/L Potassium (3.5-5.1) mEq/L Chloride (98-107) mEq/L Carbon Dioxide (21-32) mEq/L Anion Gap (5-15) BUN (7-18) mg/dL Creatinine (0.7-1.3) mg/dL Est Cr Clr Drug Dosing mL/min Estimated GFR (MDRD) (>60) mL/min BUN/Creatinine Ratio (14-18) Glucose (83-115) mg/dL POC Glucose 114 H 124 H (83-110) mg/dL Calcium (8.5-10.1) mg/dL Magnesium (1.8-2.4) mg/dl Urine Color (Yellow) Urine Appearance (Clear) Urine pH (5.0-8.0) Ur Specific [place] (1.005-1.030) Urine Protein (Negative) Urine Glucose (UA) (Negative) Urine Ketones (Negative) Urine Occult Blood (Negative) Urine Nitrite (Negative) Urine Bilirubin (Negative) Urine Urobilinogen (0.2-1.0) Ur Leukocyte Esterase (Negative) Urine RBC (0-5) /hpf Urine WBC (0-5) /hpf Ur Squamous Epith Cells (0-5) /hpf Urine Bacteria (FEW) /hpf Hyaline Casts (0-5) /lpf Urine Mucus (FEW) /hpf 03/09/19 03/09/19 03/10/19 Range/Units 18:25 20:44 05:24 WBC 9.50 H (4.23-9.07) K/mm3 RBC 4.03 L (4.63-6.08) M/mm3 Hgb 12.4 L (13.7-17.5) gm/dl Hct 37.4 L (40.1-51.0) % MCV 92.8 H (79.0-92.2) fl MCH 30.8 (25.7-32.2) pg MCHC 33.2 (32.2-35.5) g/dl RDW Std Deviation 43.8 (35.1-43.9) fL Plt Count 140 L (163-337) K/mm3 MPV 10.9 (9.4-12.3) fl Neut % (Auto) 62.8 (34.0-67.9) % Lymph % (Auto) 20.7 L (21.8-53.1) % Turner % (Auto) 12.4 H (5.3-12.2) % Eos % (Auto) 3.4 (0.8-7.0) Baso % (Auto) 0.4 (0.1-1.2) % Neut # (Auto) 5.96 H (1.78-5.38) K/mm3 Lymph # (Auto) 1.97 (1.32-3.57) K/mm3 Turner # (Auto) 1.18 H (0.30-0.82) K/mm3 Eos # (Auto) 0.32 (0.04-0.54) K/mm3 Baso # (Auto) 0.04 (0.01-0.08) K/mm3 Manual Slide Review Sodium (136-145) mEq/L Potassium (3.5-5.1) mEq/L Chloride (98-107) mEq/L Carbon Dioxide (21-32) mEq/L Anion Gap (5-15) BUN (7-18) mg/dL Creatinine (0.7-1.3) mg/dL Est Cr Clr Drug Dosing mL/min Estimated GFR (MDRD) (>60) mL/min BUN/Creatinine Ratio (14-18) Glucose (83-115) mg/dL POC Glucose 115 H (83-110) mg/dL Calcium (8.5-10.1) mg/dL Magnesium (1.8-2.4) mg/dl Urine Color Yellow (Yellow) Urine Appearance Clear (Clear) Urine pH 6.0 (5.0-8.0) Ur Specific [place] 1.025 (1.005-1.030) Urine Protein Negative (Negative) Urine Glucose (UA) Negative (Negative) Urine Ketones Negative (Negative) Urine Occult Blood Negative (Negative) Urine Nitrite Negative (Negative) Urine Bilirubin Negative (Negative) Urine Urobilinogen 0.2 (0.2-1.0) Ur Leukocyte Esterase Negative (Negative) Urine RBC 0-5 (0-5) /hpf Urine WBC 0-5 (0-5) /hpf Ur Squamous Epith Cells 5-10 H (0-5) /hpf Urine Bacteria Not seen (FEW) /hpf Hyaline Casts 5-10 H (0-5) /lpf Urine Mucus Not seen (FEW) /hpf 03/10/19 03/10/19 Range/Units 05:24 06:14 WBC (4.23-9.07) K/mm3 RBC (4.63-6.08) M/mm3 Hgb (13.7-17.5) gm/dl Hct (40.1-51.0) % MCV (79.0-92.2) fl MCH (25.7-32.2) pg MCHC (32.2-35.5) g/dl RDW Std Deviation (35.1-43.9) fL Plt Count (163-337) K/mm3 MPV (9.4-12.3) fl Neut % (Auto) (34.0-67.9) % Lymph % (Auto) (21.8-53.1) % Turner % (Auto) (5.3-12.2) % Eos % (Auto) (0.8-7.0) Baso % (Auto) (0.1-1.2) % Neut # (Auto) (1.78-5.38) K/mm3 Lymph # (Auto) (1.32-3.57) K/mm3 Turner # (Auto) (0.30-0.82) K/mm3 Eos # (Auto) (0.04-0.54) K/mm3 Baso # (Auto) (0.01-0.08) K/mm3 Manual Slide Review Sodium 136 (136-145) mEq/L Potassium 4.1 (3.5-5.1) mEq/L Chloride 102 (98-107) mEq/L Carbon Dioxide 26 (21-32) mEq/L Anion Gap 12.1 (5-15) BUN 26 H (7-18) mg/dL Creatinine 1.9 H (0.7-1.3) mg/dL Est Cr Clr Drug Dosing 30.44 mL/min Estimated GFR (MDRD) 35 (>60) mL/min BUN/Creatinine Ratio 13.7 L (14-18) Glucose 114 (83-115) mg/dL POC Glucose 112 H (83-110) mg/dL Calcium 9.0 (8.5-10.1) mg/dL Magnesium 2.1 (1.8-2.4) mg/dl Urine Color (Yellow) Urine Appearance (Clear) Urine pH (5.0-8.0) Ur Specific [place] (1.005-1.030) Urine Protein (Negative) Urine Glucose (UA) (Negative) Urine Ketones (Negative) Urine Occult Blood (Negative) Urine Nitrite (Negative) Urine Bilirubin (Negative) Urine Urobilinogen (0.2-1.0) Ur Leukocyte Esterase (Negative) Urine RBC (0-5) /hpf Urine WBC (0-5) /hpf Ur Squamous Epith Cells (0-5) /hpf Urine Bacteria (FEW) /hpf Hyaline Casts (0-5) /lpf Urine Mucus (FEW) /hpf Med Orders - Current: Current Medications Amlodipine Besylate (Norvasc) 10 mg PO DAILY [facility] Last Admin: 03/09/19 08:09 Dose: 10 mg Apixaban (Eliquis) 2.5 mg PO BID [facility] Last Admin: 03/09/19 21:00 Dose: 2.5 mg Bisacodyl (Dulcolax) 5 mg PO DAILY PRN PRN Reason: Constipation Cholecalciferol (Vitamin D3) 5,000 unit PO DAILY [facility] Last Admin: 03/09/19 08:09 Dose: 5,000 unit Cyclobenzaprine HCl (Flexeril) 5 mg PO BID PRN PRN Reason: Spasms Last Admin: 03/09/19 21:01 Dose: 5 mg Docusate Sodium (Colace) 100 mg PO BID [facility] Last Admin: 03/09/19 21:00 Dose: 100 mg Famotidine (Pepcid) 20 mg PO DAILY [facility] Last Admin: 03/09/19 08:09 Dose: 20 mg Hydrochlorothiazide (Hydrochlorothiazide) 25 mg PO DAILY [facility] Last Admin: 03/09/19 08:09 Dose: 25 mg Hydromorphone HCl (Dilaudid) 0.2 mg IVPUSH Q2H PRN PRN Reason: Pain (moderate 4-6) Last Admin: 03/07/19 22:08 Dose: 0.2 mg Insulin Human Lispro (Humalog) 0 unit SUBCUT QIDACANDBED [facility]; Protocol Last Admin: 03/10/19 06:39 Dose: Not Given Levothyroxine Sodium (Synthroid) 150 mcg PO ACBREAKFAST [facility] Last Admin: 03/10/19 06:17 Dose: 150 mcg Metoprolol Succinate (Toprol Xl) 100 mg PO DAILY [facility] Last Admin: 03/09/19 08:08 Dose: 100 mg Naloxone HCl (Narcan) 0.1 mg IVPUSH Q5M PRN PRN Reason: Oversedation Ondansetron HCl (Zofran) 4 mg IVPUSH Q6H PRN PRN Reason: Nausea/Vomiting Oxycodone/Acetaminophen (Percocet 325-5 Mg) 1 - 2 tab PO Q4H PRN PRN Reason: Pain Last Admin: 03/10/19 06:17 Dose: 2 tab Senna (Senna) 8.6 mg PO BID PRN PRN Reason: Constipation Tamsulosin HCl (Flomax) 0.4 mg PO BEDTIME [facility] Last Admin: 03/09/19 21:01 Dose: 0.4 mg Discontinued Medications Acetaminophen (Tylenol) 975 mg PO ONETIME [facility] Stop: 03/07/19 12:00 Last Admin: 03/07/19 10:01 Dose: 975 mg Bupivacaine HCl (Sensorcaine-Mpf 0.25%) Confirm Administered Dose 30 ml .ROUTE .STK-MED ONE Stop: 03/07/19 10:09 Last Admin: 03/07/19 13:05 Dose: 30 ml Cefazolin Sodium (Ancef) Confirm Administered Dose 2 gm .ROUTE .STK-MED ONE Stop: 03/07/19 10:09 Last Admin: 03/07/19 13:00 Dose: 2 gm Morphine Sulfate 8 mg/Epinephrine HCl 0.3 mg/Cefuroxime Sodium 750 mg/Sodium Chloride 27.9 ml 0 mg .XX ONETIME ONE Stop: 03/07/19 10:01 Last Admin: 03/07/19 13:04 Dose: 758.3 mg Cyclobenzaprine HCl (Flexeril) 10 mg PO ONETIME ONE Stop: 03/08/19 20:31 Last Admin: 03/08/19 20:49 Dose: 10 mg Ephedrine Sulfate (Ephedrine Sulfate) 5 mg IVPUSH ASDIRECTED PRN PRN Reason: Hypotension Stop: 03/07/19 18:00 Famotidine (Pepcid) 20 mg PO Q12H [facility] Last Admin: 03/08/19 08:16 Dose: 20 mg Fentanyl (Sublimaze) Confirm Administered Dose 100 mcg .ROUTE .STK-MED ONE Stop: 03/07/19 10:37 Lactated Ringer's (Ringers, Lactated) 1,000 mls @ 125 mls/hr IV ASDIRECTED [facility] Stop: 03/07/19 18:00 Last Admin: 03/07/19 10:05 Dose: 125 mls/hr Cefazolin Sodium/Dextrose 2 gm (/ Premix) 50 mls @ 100 mls/hr IV Q8H [facility] Stop: 03/08/19 13:29 Last Admin: 03/08/19 12:13 Dose: Not Given Lidocaine HCl (Xylocaine-Mpf 1%) Confirm Administered Dose 4 mls @ as directed .ROUTE .[facility] ONE Stop: 03/07/19 10:38 Lactated Ringer's (Ringers, Lactated) Confirm Administered Dose 1,000 mls @ as directed .ROUTE .[facility] ONE Stop: 03/07/19 11:06 Sodium Chloride (Normal Saline) 1,000 mls @ 125 mls/hr IV ASDIRECTED [facility] Sodium Chloride (Normal Saline) 1,000 mls @ 125 mls/hr IV ASDIRECTED [facility] Last Admin: 03/08/19 00:59 Dose: 125 mls/hr Magnesium Sulfate 2 gm/ Premix 50 mls @ 25 mls/hr IV ONETIME ONE Stop: 03/09/19 09:29 Last Admin: 03/09/19 07:33 Dose: 25 mls/hr Iodine (Iodine 2% Mild Tincture) Confirm Administered Dose 30 ml .ROUTE .[facility] ONE Stop: 03/07/19 10:09 Last Admin: 03/07/19 12:57 Dose: 18 ml Lidocaine/Sodium Bicarbonate (Buffered Lidocaine 1% In Ns 8.4%) 0.25 ml IDERM ONETIME PRN PRN Reason: Prior to IV Start Stop: 03/07/19 18:00 Losartan Potassium (Cozaar) 150 mg PO DAILY [facility] Midazolam HCl (Versed 1 Mg/Ml) Confirm Administered Dose 2 mg .ROUTE .[facility] ONE Stop: 03/07/19 11:06 Ondansetron HCl (Zofran) 4 mg IVPUSH ONETIME PRN PRN Reason: Nausea/Vomiting Stop: 03/07/19 18:00 Oxycodone HCl (Oxycontin) 10 mg PO ONETIME [facility] Stop: 03/07/19 16:00 Last Admin: 03/07/19 10:01 Dose: 10 mg Oxycodone HCl (Oxycodone) 5 mg PO ONETIME ONE Stop: 03/08/19 14:01 Last Admin: 03/08/19 16:00 Dose: Not Given Pregabalin (Lyrica) 50 mg PO ONETIME [facility]GG Stop: 03/07/19 12:00 Last Admin: 03/07/19 10:01 Dose: 50 mg Propofol (Diprivan 20 Ml) Confirm Administered Dose 200 mg .ROUTE .STK-MED ONE Stop: 03/07/19 10:36 Propofol (Diprivan 20 Ml) Confirm Administered Dose 200 mg .ROUTE .STK-MED ONE Stop: 03/07/19 12:22 Ropivacaine (Naropin 0.5%) Confirm Administered Dose 30 ml .ROUTE .STK-MED ONE Stop: 03/07/19 11:24 Sodium Chloride (Saline Flush) 10 ml FLUSH ASDIRECTED PRN PRN Reason: Keep Vein Open Stop: 03/07/19 18:00 Tranexamic Acid (Cyklokapron) Confirm Administered Dose 1,000 mg .ROUTE .STK- MED ONE Stop: 03/07/19 10:09 Last Admin: 03/07/19 13:12 Dose: 1,000 mg Vancomycin HCl (Vancomycin) Confirm Administered Dose 1 gm .ROUTE .STK-MED ONE Stop: 03/07/19 10:09 Last Admin: 03/07/19 13:13 Dose: 1 gm - Exam Wound/Incisions: Dressing Dry and Intact General: Alert, Cooperative, No Acute Distress Lungs: Normal Respiratory Effort Extremities: Other (NVS intact for LLE. Rica's negative for LLE.) Sepsis Event Note - Evaluation Sepsis Screening Result: No Definite Risk - Focused Exam Vital Signs: Vital Signs Temp Pulse Resp BP Pulse Ox 03/10/19 06:12 98.1 F 101 H 18 123/67 98 03/09/19 19:51 98.8 F 78 19 125/61 93 L Date Exam was Performed: 03/10/19 Time Exam was Performed: 06:42 - Problem List Review Problem List Initiated/Reviewed/Updated: Yes - My Orders Last 24 Hours: Active Orders 24 hr Category Date Time Status Ready for Discharge [RC] PER UNIT ROUTINE Care 03/10/19 06:10 Active Consult to Case Management/[employer] [CONS] Cons 03/09/19 07:20 Active Routine Famotidine [Pepcid] Med 03/09/19 09:00 Active 20 mg PO DAILY Medication Orders Amlodipine Besylate (Norvasc) 10 mg PO DAILY [facility] Last Admin: 03/09/19 08:09 Dose: 10 mg Admin: 03/08/19 08:17 Dose: 10 mg Apixaban (Eliquis) 2.5 mg PO BID [facility] Last Admin: 03/09/19 21:00 Dose: 2.5 mg Admin: 03/09/19 08:09 Dose: 2.5 mg Admin: 03/08/19 20:49 Dose: 2.5 mg Admin: 03/08/19 08:17 Dose: 2.5 mg Bisacodyl (Dulcolax) 5 mg PO DAILY PRN PRN Reason: Constipation Cholecalciferol (Vitamin D3) 5,000 unit PO DAILY [facility] Last Admin: 03/09/19 08:09 Dose: 5,000 unit Admin: 03/08/19 08:16 Dose: 5,000 unit Cyclobenzaprine HCl (Flexeril) 5 mg PO BID PRN PRN Reason: Spasms Last Admin: 03/09/19 21:01 Dose: 5 mg Admin: 03/09/19 08:08 Dose: 5 mg Admin: 03/08/19 08:20 Dose: 5 mg Admin: 03/07/19 18:07 Dose: 5 mg Docusate Sodium (Colace) 100 mg PO BID [facility] Last Admin: 03/09/19 21:00 Dose: 100 mg Admin: 03/09/19 08:09 Dose: 100 mg Admin: 03/08/19 20:49 Dose: 100 mg Admin: 03/08/19 08:16 Dose: 100 mg Admin: 03/07/19 20:41 Dose: 100 mg Famotidine (Pepcid) 20 mg PO DAILY [facility] Last Admin: 03/09/19 08:09 Dose: 20 mg Hydrochlorothiazide (Hydrochlorothiazide) 25 mg PO DAILY [facility] Last Admin: 03/09/19 08:09 Dose: 25 mg Admin: 03/08/19 08:16 Dose: 25 mg Hydromorphone HCl (Dilaudid) 0.2 mg IVPUSH Q2H PRN PRN Reason: Pain (moderate 4-6) Last Admin: 03/07/19 22:08 Dose: 0.2 mg Insulin Human Lispro (Humalog) 0 unit SUBCUT QIDACANDBED [facility]; Protocol Last Admin: 03/10/19 06:39 Dose: Not Given Admin: 03/09/19 21:04 Dose: Not Given Admin: 03/09/19 17:07 Dose: Not Given Admin: 03/09/19 12:49 Dose: Admin: 03/09/19 06:50 Dose: Not Given Admin: 03/08/19 21:44 Dose: Not Given Admin: 03/08/19 18:13 Dose: Admin: 03/08/19 12:12 Dose: Admin: 03/08/19 06:48 Dose: Not Given Admin: 03/07/19 22:03 Dose: Not Given Admin: 03/07/19 17:40 Dose: Not Given Levothyroxine Sodium (Synthroid) 150 mcg PO ACBREAKFAST [facility] Last Admin: 03/10/19 06:17 Dose: 150 mcg Admin: 03/09/19 06:35 Dose: 150 mcg Admin: 03/08/19 06:24 Dose: 150 mcg Metoprolol Succinate (Toprol Xl) 100 mg PO DAILY [facility] Last Admin: 03/09/19 08:08 Dose: 100 mg Admin: 03/08/19 08:17 Dose: 100 mg Naloxone HCl (Narcan) 0.1 mg IVPUSH Q5M PRN PRN Reason: Oversedation Ondansetron HCl (Zofran) 4 mg IVPUSH Q6H PRN PRN Reason: Nausea/Vomiting Oxycodone/Acetaminophen (Percocet 325-5 Mg) 1 - 2 tab PO Q4H PRN PRN Reason: Pain Last Admin: 03/10/19 06:17 Dose: 2 tab Admin: 03/09/19 21:01 Dose: 1 tab Admin: 03/09/19 17:08 Dose: 1 tab Admin: 03/09/19 13:02 Dose: 1 tab Admin: 03/09/19 09:54 Dose: 1 tab Admin: 03/09/19 04:48 Dose: 2 tab Admin: 03/08/19 23:51 Dose: 2 tab Admin: 03/08/19 18:53 Dose: 1 tab Admin: 03/08/19 16:32 Dose: 1 tab Admin: 03/08/19 11:39 Dose: 2 tab Admin: 03/08/19 06:24 Dose: 2 tab Admin: 03/08/19 00:59 Dose: 2 tab Admin: 03/07/19 20:40 Dose: 2 tab Admin: 03/07/19 15:27 Dose: 2 tab Senna (Senna) 8.6 mg PO BID PRN PRN Reason: Constipation Tamsulosin HCl (Flomax) 0.4 mg PO BEDTIME [facility] Last Admin: 03/09/19 21:01 Dose: 0.4 mg Admin: 03/08/19 20:49 Dose: 0.4 mg Admin: 03/07/19 20:41 Dose: 0.4 mg - Assessment Assessment (Free Text/Narrative):: POD#3 - left TKA - Plan Plan (Free Text/Narrative):: 1. Discharge to skilled nursing today for continued rehabilitation. 2. 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 Pt used Eliquis in the past and tolerated the medication without complaint. 3. Outpatient follow-up scheduled. 4. Further orders per Hospitalist service. The pt's case was discussed with Dr. Peters today.
--- NOTE | 2019-03-10 07:09 | PCM.CONSN ---
- General Info Date of Service: 03/10/19 Admission Dx/Problem (Free Text): Admission Diagnosis/Problem Admission Diagnosis/Problem Osteoarthritis of knee Functional Status: Reports: Pain Controlled, Tolerating Diet, Ambulating, Urinating, Incentive Spirometry. Denies: New Symptoms - Review of Systems General: Reports: No Symptoms. Denies: Fever, Chills HEENT: Reports: No Symptoms. Denies: Headaches, Sore Throat Pulmonary: Reports: No Symptoms. Denies: Shortness of Breath, Cough, Sputum, Wheezing Cardiovascular: Reports: No Symptoms. Denies: Chest Pain, Palpitations, Dyspnea on Exertion Gastrointestinal: Reports: No Symptoms. Denies: Abdominal Pain, Constipation, Diarrhea, Nausea, Vomiting Genitourinary: Reports: Urgency, Other (Nocturia ). Denies: Pain Musculoskeletal: Reports: Leg Pain Skin: Reports: No Symptoms Neurological: Reports: Difficulty Walking, Gait Disturbance. Denies: Confusion Psychiatric: Reports: No Symptoms - Patient Data Vitals - Most Recent: Last Vital Signs Temp 98.1 F 03/10/19 06:12 Pulse 101 H 03/10/19 06:12 Resp 18 03/10/19 06:12 BP 123/67 03/10/19 06:12 Pulse Ox 98 03/10/19 06:12 Weight - Most Recent: 257 lb 14.4 oz I&O - Last 24 Hours: Intake & Output 03/09/19 03/10/19 03/10/19 22:59 06:59 14:59 Intake Total 280 500 Output Total 1300 1450 Balance -1020 -950 Lab Results Last 24 Hours: Laboratory Results - last 24 hr 03/09/19 03/09/19 03/09/19 Range/Units 05:11 11:48 17:05 WBC (4.23-9.07) K/mm3 RBC (4.63-6.08) M/mm3 Hgb (13.7-17.5) gm/dl Hct (40.1-51.0) % MCV (79.0-92.2) fl MCH (25.7-32.2) pg MCHC (32.2-35.5) g/dl RDW Std Deviation (35.1-43.9) fL Plt Count (163-337) K/mm3 MPV (9.4-12.3) fl Neut % (Auto) (34.0-67.9) % Lymph % (Auto) (21.8-53.1) % [place] % (Auto) (5.3-12.2) % Eos % (Auto) (0.8-7.0) Baso % (Auto) (0.1-1.2) % Neut # (Auto) (1.78-5.38) K/mm3 Lymph # (Auto) (1.32-3.57) K/mm3 [place] # (Auto) (0.30-0.82) K/mm3 Eos # (Auto) (0.04-0.54) K/mm3 Baso # (Auto) (0.01-0.08) K/mm3 Manual Slide Review Abnormal smear Sodium (136-145) mEq/L Potassium (3.5-5.1) mEq/L Chloride (98-107) mEq/L Carbon Dioxide (21-32) mEq/L Anion Gap (5-15) BUN (7-18) mg/dL Creatinine (0.7-1.3) mg/dL Est Cr Clr Drug Dosing mL/min Estimated GFR (MDRD) (>60) mL/min BUN/Creatinine Ratio (14-18) Glucose (83-115) mg/dL POC Glucose 114 H 124 H (83-110) mg/dL Calcium (8.5-10.1) mg/dL Magnesium (1.8-2.4) mg/dl Urine Color (Yellow) Urine Appearance (Clear) Urine pH (5.0-8.0) Ur Specific [place] (1.005-1.030) Urine Protein (Negative) Urine Glucose (UA) (Negative) Urine Ketones (Negative) Urine Occult Blood (Negative) Urine Nitrite (Negative) Urine Bilirubin (Negative) Urine Urobilinogen (0.2-1.0) Ur Leukocyte Esterase (Negative) Urine RBC (0-5) /hpf Urine WBC (0-5) /hpf Ur Squamous Epith Cells (0-5) /hpf Urine Bacteria (FEW) /hpf Hyaline Casts (0-5) /lpf Urine Mucus (FEW) /hpf 03/09/19 03/09/19 03/10/19 Range/Units 18:25 20:44 05:24 WBC 9.50 H (4.23-9.07) K/mm3 RBC 4.03 L (4.63-6.08) M/mm3 Hgb 12.4 L (13.7-17.5) gm/dl Hct 37.4 L (40.1-51.0) % MCV 92.8 H (79.0-92.2) fl MCH 30.8 (25.7-32.2) pg MCHC 33.2 (32.2-35.5) g/dl RDW Std Deviation 43.8 (35.1-43.9) fL Plt Count 140 L (163-337) K/mm3 MPV 10.9 (9.4-12.3) fl Neut % (Auto) 62.8 (34.0-67.9) % Lymph % (Auto) 20.7 L (21.8-53.1) % [place] % (Auto) 12.4 H (5.3-12.2) % Eos % (Auto) 3.4 (0.8-7.0) Baso % (Auto) 0.4 (0.1-1.2) % Neut # (Auto) 5.96 H (1.78-5.38) K/mm3 Lymph # (Auto) 1.97 (1.32-3.57) K/mm3 [place] # (Auto) 1.18 H (0.30-0.82) K/mm3 Eos # (Auto) 0.32 (0.04-0.54) K/mm3 Baso # (Auto) 0.04 (0.01-0.08) K/mm3 Manual Slide Review Sodium (136-145) mEq/L Potassium (3.5-5.1) mEq/L Chloride (98-107) mEq/L Carbon Dioxide (21-32) mEq/L Anion Gap (5-15) BUN (7-18) mg/dL Creatinine (0.7-1.3) mg/dL Est Cr Clr Drug Dosing mL/min Estimated GFR (MDRD) (>60) mL/min BUN/Creatinine Ratio (14-18) Glucose (83-115) mg/dL POC Glucose 115 H (83-110) mg/dL Calcium (8.5-10.1) mg/dL Magnesium (1.8-2.4) mg/dl Urine Color Yellow (Yellow) Urine Appearance Clear (Clear) Urine pH 6.0 (5.0-8.0) Ur Specific [place] 1.025 (1.005-1.030) Urine Protein Negative (Negative) Urine Glucose (UA) Negative (Negative) Urine Ketones Negative (Negative) Urine Occult Blood Negative (Negative) Urine Nitrite Negative (Negative) Urine Bilirubin Negative (Negative) Urine Urobilinogen 0.2 (0.2-1.0) Ur Leukocyte Esterase Negative (Negative) Urine RBC 0-5 (0-5) /hpf Urine WBC 0-5 (0-5) /hpf Ur Squamous Epith Cells 5-10 H (0-5) /hpf Urine Bacteria Not seen (FEW) /hpf Hyaline Casts 5-10 H (0-5) /lpf Urine Mucus Not seen (FEW) /hpf 03/10/19 03/10/19 Range/Units 05:24 06:14 WBC (4.23-9.07) K/mm3 RBC (4.63-6.08) M/mm3 Hgb (13.7-17.5) gm/dl Hct (40.1-51.0) % MCV (79.0-92.2) fl MCH (25.7-32.2) pg MCHC (32.2-35.5) g/dl RDW Std Deviation (35.1-43.9) fL Plt Count (163-337) K/mm3 MPV (9.4-12.3) fl Neut % (Auto) (34.0-67.9) % Lymph % (Auto) (21.8-53.1) % [place] % (Auto) (5.3-12.2) % Eos % (Auto) (0.8-7.0) Baso % (Auto) (0.1-1.2) % Neut # (Auto) (1.78-5.38) K/mm3 Lymph # (Auto) (1.32-3.57) K/mm3 [place] # (Auto) (0.30-0.82) K/mm3 Eos # (Auto) (0.04-0.54) K/mm3 Baso # (Auto) (0.01-0.08) K/mm3 Manual Slide Review Sodium 136 (136-145) mEq/L Potassium 4.1 (3.5-5.1) mEq/L Chloride 102 (98-107) mEq/L Carbon Dioxide 26 (21-32) mEq/L Anion Gap 12.1 (5-15) BUN 26 H (7-18) mg/dL Creatinine 1.9 H (0.7-1.3) mg/dL Est Cr Clr Drug Dosing 30.44 mL/min Estimated GFR (MDRD) 35 (>60) mL/min BUN/Creatinine Ratio 13.7 L (14-18) Glucose 114 (83-115) mg/dL POC Glucose 112 H (83-110) mg/dL Calcium 9.0 (8.5-10.1) mg/dL Magnesium 2.1 (1.8-2.4) mg/dl Urine Color (Yellow) Urine Appearance (Clear) Urine pH (5.0-8.0) Ur Specific [place] (1.005-1.030) Urine Protein (Negative) Urine Glucose (UA) (Negative) Urine Ketones (Negative) Urine Occult Blood (Negative) Urine Nitrite (Negative) Urine Bilirubin (Negative) Urine Urobilinogen (0.2-1.0) Ur Leukocyte Esterase (Negative) Urine RBC (0-5) /hpf Urine WBC (0-5) /hpf Ur Squamous Epith Cells (0-5) /hpf Urine Bacteria (FEW) /hpf Hyaline Casts (0-5) /lpf Urine Mucus (FEW) /hpf Med Orders - Current: Current Medications Amlodipine Besylate (Norvasc) 10 mg PO DAILY [facility] Last Admin: 03/09/19 08:09 Dose: 10 mg Apixaban (Eliquis) 2.5 mg PO BID [facility] Last Admin: 03/09/19 21:00 Dose: 2.5 mg Bisacodyl (Dulcolax) 5 mg PO DAILY PRN PRN Reason: Constipation Cholecalciferol (Vitamin D3) 5,000 unit PO DAILY [facility] Last Admin: 03/09/19 08:09 Dose: 5,000 unit Cyclobenzaprine HCl (Flexeril) 5 mg PO BID PRN PRN Reason: Spasms Last Admin: 03/09/19 21:01 Dose: 5 mg Docusate Sodium (Colace) 100 mg PO BID [facility] Last Admin: 03/09/19 21:00 Dose: 100 mg Famotidine (Pepcid) 20 mg PO DAILY [facility] Last Admin: 03/09/19 08:09 Dose: 20 mg Hydrochlorothiazide (Hydrochlorothiazide) 25 mg PO DAILY [facility] Last Admin: 03/09/19 08:09 Dose: 25 mg Hydromorphone HCl (Dilaudid) 0.2 mg IVPUSH Q2H PRN PRN Reason: Pain (moderate 4-6) Last Admin: 03/07/19 22:08 Dose: 0.2 mg Insulin Human Lispro (Humalog) 0 unit SUBCUT QIDACANDBED [facility]; Protocol Last Admin: 03/10/19 06:39 Dose: Not Given Levothyroxine Sodium (Synthroid) 150 mcg PO ACBREAKFAST [facility] Last Admin: 03/10/19 06:17 Dose: 150 mcg Metoprolol Succinate (Toprol Xl) 100 mg PO DAILY [facility] Last Admin: 03/09/19 08:08 Dose: 100 mg Naloxone HCl (Narcan) 0.1 mg IVPUSH Q5M PRN PRN Reason: Oversedation Ondansetron HCl (Zofran) 4 mg IVPUSH Q6H PRN PRN Reason: Nausea/Vomiting Oxycodone/Acetaminophen (Percocet 325-5 Mg) 1 - 2 tab PO Q4H PRN PRN Reason: Pain Last Admin: 03/10/19 06:17 Dose: 2 tab Senna (Senna) 8.6 mg PO BID PRN PRN Reason: Constipation Tamsulosin HCl (Flomax) 0.4 mg PO BEDTIME [facility] Last Admin: 03/09/19 21:01 Dose: 0.4 mg Discontinued Medications Acetaminophen (Tylenol) 975 mg PO ONETIME [facility] Stop: 03/07/19 12:00 Last Admin: 03/07/19 10:01 Dose: 975 mg Bupivacaine HCl (Sensorcaine-Mpf 0.25%) Confirm Administered Dose 30 ml .ROUTE .STK-MED ONE Stop: 03/07/19 10:09 Last Admin: 03/07/19 13:05 Dose: 30 ml Cefazolin Sodium (Ancef) Confirm Administered Dose 2 gm .ROUTE .STK-MED ONE Stop: 03/07/19 10:09 Last Admin: 03/07/19 13:00 Dose: 2 gm Morphine Sulfate 8 mg/Epinephrine HCl 0.3 mg/Cefuroxime Sodium 750 mg/Sodium Chloride 27.9 ml 0 mg .XX ONETIME ONE Stop: 03/07/19 10:01 Last Admin: 03/07/19 13:04 Dose: 758.3 mg Cyclobenzaprine HCl (Flexeril) 10 mg PO ONETIME ONE Stop: 03/08/19 20:31 Last Admin: 03/08/19 20:49 Dose: 10 mg Ephedrine Sulfate (Ephedrine Sulfate) 5 mg IVPUSH ASDIRECTED PRN PRN Reason: Hypotension Stop: 03/07/19 18:00 Famotidine (Pepcid) 20 mg PO Q12H [facility] Last Admin: 03/08/19 08:16 Dose: 20 mg Fentanyl (Sublimaze) Confirm Administered Dose 100 mcg .ROUTE .STK-MED ONE Stop: 03/07/19 10:37 Lactated Ringer's (Ringers, Lactated) 1,000 mls @ 125 mls/hr IV ASDIRECTED [facility] Stop: 03/07/19 18:00 Last Admin: 03/07/19 10:05 Dose: 125 mls/hr Cefazolin Sodium/Dextrose 2 gm (/ Premix) 50 mls @ 100 mls/hr IV Q8H [facility] Stop: 03/08/19 13:29 Last Admin: 03/08/19 12:13 Dose: Not Given Lidocaine HCl (Xylocaine-Mpf 1%) Confirm Administered Dose 4 mls @ as directed .ROUTE .STK-MED ONE Stop: 03/07/19 10:38 Lactated Ringer's (Ringers, Lactated) Confirm Administered Dose 1,000 mls @ as directed .ROUTE .STK-MED ONE Stop: 03/07/19 11:06 Sodium Chloride (Normal Saline) 1,000 mls @ 125 mls/hr IV ASDIRECTED [facility] Sodium Chloride (Normal Saline) 1,000 mls @ 125 mls/hr IV ASDIRECTED [facility] Last Admin: 03/08/19 00:59 Dose: 125 mls/hr Magnesium Sulfate 2 gm/ Premix 50 mls @ 25 mls/hr IV ONETIME ONE Stop: 03/09/19 09:29 Last Admin: 03/09/19 07:33 Dose: 25 mls/hr Iodine (Iodine 2% Mild Tincture) Confirm Administered Dose 30 ml .ROUTE .STK- MED ONE Stop: 03/07/19 10:09 Last Admin: 03/07/19 12:57 Dose: 18 ml Lidocaine/Sodium Bicarbonate (Buffered Lidocaine 1% In Ns 8.4%) 0.25 ml IDERM ONETIME PRN PRN Reason: Prior to IV Start Stop: 03/07/19 18:00 Losartan Potassium (Cozaar) 150 mg PO DAILY [facility] Midazolam HCl (Versed 1 Mg/Ml) Confirm Administered Dose 2 mg .ROUTE .STK-MED ONE Stop: 03/07/19 11:06 Ondansetron HCl (Zofran) 4 mg IVPUSH ONETIME PRN PRN Reason: Nausea/Vomiting Stop: 03/07/19 18:00 Oxycodone HCl (Oxycontin) 10 mg PO ONETIME [facility] Stop: 03/07/19 16:00 Last Admin: 03/07/19 10:01 Dose: 10 mg Oxycodone HCl (Oxycodone) 5 mg PO ONETIME ONE Stop: 03/08/19 14:01 Last Admin: 03/08/19 16:00 Dose: Not Given Pregabalin (Lyrica) 50 mg PO ONETIME [facility] Stop: 03/07/19 12:00 Last Admin: 03/07/19 10:01 Dose: 50 mg Propofol (Diprivan 20 Ml) Confirm Administered Dose 200 mg .ROUTE .STK-MED ONE Stop: 03/07/19 10:36 Propofol (Diprivan 20 Ml) Confirm Administered Dose 200 mg .ROUTE .STK-MED ONE Stop: 03/07/19 12:22 Ropivacaine (Naropin 0.5%) Confirm Administered Dose 30 ml .ROUTE .STK-MED ONE Stop: 03/07/19 11:24 Sodium Chloride (Saline Flush) 10 ml FLUSH ASDIRECTED PRN PRN Reason: Keep Vein Open Stop: 03/07/19 18:00 Tranexamic Acid (Cyklokapron) Confirm Administered Dose 1,000 mg .ROUTE .STK- MED ONE Stop: 03/07/19 10:09 Last Admin: 03/07/19 13:12 Dose: 1,000 mg Vancomycin HCl (Vancomycin) Confirm Administered Dose 1 gm .ROUTE .STK-MED ONE Stop: 03/07/19 10:09 Last Admin: 03/07/19 13:13 Dose: 1 gm - Exam Quality Assessment: DVT Prophylaxis General: Alert, Oriented, Cooperative, No Acute Distress HEENT: Pupils Equal, Pupils Reactive, EOMI, Mucous Membr. Moist/[place] Neck: Supple, Trachea Midline Lungs: Clear to Auscultation, Normal Respiratory Effort Cardiovascular: Regular Rate, Regular Rhythm GI/Abdominal Exam: Normal Bowel Sounds, Soft, Non-Tender, No Distention, No Abnormal Bruit (Male) Exam: Deferred Back Exam: Normal Inspection, Full Range of Motion Extremities: Normal Capillary Refill, Leg Pain, Limited Range of Motion, Other ( Bandage in place on left leg. Cooling pack in place. ) Peripheral Pulses: 2+: Radial (L), Radial (R), Dorsalis Pedis (L), Dorsalis Pedis (R) Skin: Warm, Dry, Intact Wound/Incisions: Dressing Dry and Intact Neurological: No New Focal Deficit Psy/Mental Status: Alert, Normal Affect, Normal Mood Sepsis Event Note - Evaluation Sepsis Screening Result: No Definite Risk - Focused Exam Vital Signs: Vital Signs Temp Pulse Resp BP Pulse Ox 03/10/19 06:12 98.1 F 101 H 18 123/67 98 03/09/19 19:51 98.8 F 78 19 125/61 93 L Date Exam was Performed: 03/10/19 Time Exam was Performed: 08:02 Consult PN Assessment/Plan POD#: 3 Procedures: Procedures ANTINUCLEAR ANTIBODIES (01/11/18) ANTITHROMBIN III ACTIVITY (08/11/18) ASSAY OF BLOOD/URIC ACID (01/11/18) ASSAY OF NATRIURETIC PEPTIDE (04/14/18) ASSAY OF PARATHORMONE (01/11/18) ASSAY OF PREALBUMIN (02/09/19) ASSAY OF PROTEIN URINE (01/11/18) ASSAY OF SERUM ALBUMIN (02/09/19) ASSAY OF TROPONIN QUANT (04/14/18) ASSAY OF URINE CREATININE (01/11/18) ASSAY THYROID STIM HORMONE (08/11/18) BETA-2 GLYCOPROTEIN ANTIBODY (08/11/18) C-REACTIVE PROTEIN (02/09/19) CLOT INHIBIT PROT C ACTIVITY (08/11/18) CLOT INHIBIT PROT S FREE (08/11/18) COLONOSCOPY AND BIOPSY (11/23/18) COLONOSCOPY W/LESION REMOVAL (11/23/18) COMPLETE CBC AUTOMATED (08/11/18) COMPLETE CBC W/AUTO DIFF WBC (02/09/19) COMPREHEN METABOLIC PANEL (08/11/18) CT ANGIOGRAPHY CHEST (04/14/18) DXA BONE DENSITY AXIAL (02/22/19) ECG MONIT/REPRT UP TO 48 HRS (04/16/18) ECG MONIT/REPRT UP TO 48 HRS (04/16/18) ELECTROCARDIOGRAM TRACING (02/09/19) EMERGENCY DEPT VISIT (04/14/18) F5 GENE (08/11/18) FIBRIN DEGRADATION QUANT (04/14/18) FLUORESCENT ANTIBODY TITER (01/11/18) GLYCOSYLATED HEMOGLOBIN TEST (02/09/19) HIV-1 AG IA (01/11/18) HYDRATION IV INFUSION INIT (04/14/18) IMMUNOASSAY QUANT NOS NONAB (01/11/18) LIPID PANEL (04/14/18) METABOLIC PANEL TOTAL CA (02/09/19) OFFICE/OUTPATIENT VISIT EST (02/09/19) OFFICE/OUTPATIENT VISIT EST (03/28/16) PROTEIN E-PHORESIS/URINE/CSF (01/11/18) PROTHROMBIN TIME (02/09/19) RENAL FUNCTION PANEL (01/11/18) ROUTINE VENIPUNCTURE (02/09/19) THROMBOPLASTIN TIME PARTIAL (04/14/18) TTE W/DOPPLER COMPLETE (04/19/18) UPR/LXTR ART STDY 3+ LVLS (04/19/18) UR ALBUMIN QUANTITATIVE (10/27/17) URINALYSIS AUTO W/SCOPE (01/11/18) US EXAM ABDO BACK WALL GRANGER (12/21/17) VASCULAR STUDY (12/21/17) VITAMIN D 25 HYDROXY (01/11/18) X-RAY EXAM CHEST 2 VIEWS (02/09/19) XCAPSL CTRC RMVL W/O ECP (08/05/16) (1) S/P total knee arthroplasty SNOMED Code(s): 7593370775495, 384582221, 4686960174159 Code(s): Z96.659 - PRESENCE OF UNSPECIFIED ARTIFICIAL KNEE JOINT Priority: High Current Visit: Yes Qualifiers: Laterality: left Qualified Code(s): Z96.652 - Presence of left artificial knee joint (2) Osteoarthritis SNOMED Code(s): 269894777 Code(s): M19.90 - UNSPECIFIED OSTEOARTHRITIS, UNSPECIFIED SITE Priority: High Current Visit: Yes Qualifiers: Osteoarthritis location: knee Osteoarthritis type: primary Laterality: left Qualified Code(s): M17.12 - Unilateral primary osteoarthritis, left knee (3) Hx of pulmonary embolus SNOMED Code(s): 551122015 Code(s): Z86.711 - PERSONAL HISTORY OF PULMONARY EMBOLISM Priority: Medium Current Visit: No (4) History of supraventricular tachycardia SNOMED Code(s): 347393823691802 Code(s): Z86.79 - PERSONAL HISTORY OF OTHER DISEASES OF THE CIRCULATORY SYSTEM Priority: Medium Current Visit: No (5) History of radiofrequency ablation procedure for cardiac arrhythmia SNOMED Code(s): 384106389 Code(s): Z98.890 - OTHER SPECIFIED POSTPROCEDURAL STATES Priority: Medium Current Visit: No (6) Type II diabetes mellitus SNOMED Code(s): 36236901 Code(s): E11.9 - TYPE 2 DIABETES MELLITUS WITHOUT COMPLICATIONS Priority: Medium Current Visit: Yes Qualifiers: 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 insulin use status Diabetes mellitus complication status: without complication Qualified Code(s): E11.9 - Type 2 diabetes mellitus without complications (7) BPH (benign prostatic hyperplasia) SNOMED Code(s): 295239201 Code(s): N40.0 - BENIGN PROSTATIC HYPERPLASIA WITHOUT LOWER URINRY TRACT SYMP Priority: Low Current Visit: No Qualifiers: Lower urinary tract symptom presence: unspecified whether lower urinary tract symptoms present Qualified Code(s): N40.0 - Benign prostatic hyperplasia without lower urinary tract symptoms (8) HTN (hypertension) SNOMED Code(s): 49238604 Code(s): I10 - ESSENTIAL (PRIMARY) HYPERTENSION Priority: Medium Current Visit: No Qualifiers: Hypertension type: unspecified Qualified Code(s): I10 - Essential (primary ) hypertension (9) Claudication SNOMED Code(s): 93194256 Code(s): I73.9 - PERIPHERAL VASCULAR DISEASE, UNSPECIFIED Priority: Low Current Visit: No (10) Hemorrhoids SNOMED Code(s): 62677890 Code(s): K64.9 - UNSPECIFIED HEMORRHOIDS Priority: Low Current Visit: No Qualifiers: Hemorrhoid type: unspecified Qualified Code(s): K64.9 - Unspecified hemorrhoids (11) Stage 3 chronic kidney disease SNOMED Code(s): 380946762 Code(s): N18.3 - CHRONIC KIDNEY DISEASE, STAGE 3 (MODERATE) Priority: Medium Current Visit: No (12) Hypothyroid SNOMED Code(s): 52859464 Code(s): E03.9 - HYPOTHYROIDISM, UNSPECIFIED Priority: Low Current Visit : No Qualifiers: Hypothyroidism type: unspecified Qualified Code(s): E03.9 - Hypothyroidism , unspecified (13) Chronic shortness of breath SNOMED Code(s): 982778430 Code(s): R06.02 - SHORTNESS OF BREATH Priority: Medium Current Visit: No (14) Lower extremity edema SNOMED Code(s): 820458886 Code(s): R60.0 - LOCALIZED EDEMA Priority: Low Current Visit: No (15) Nocturia SNOMED Code(s): 084886816 Code(s): R35.1 - NOCTURIA Priority: Medium Current Visit: Yes (16) Hypomagnesemia SNOMED Code(s): 623881337 Code(s): E83.42 - HYPOMAGNESEMIA Priority: High Current Visit: Yes Problem List Initiated/Reviewed/Updated: Yes My Orders Last 24 Hours: My Active Orders 03/09/ 07:20 Consult to Case Management/Control Systems Drafting Officer [CONS] Routine Plan: I/P: Acute: S/P left total knee arthroplasty - post-operative day 3 -DVT prophylaxis and pain management per primary care team -PT/OT -IS/RT -Monitor oxygen saturation -Titrate oxygen as needed -Home medications reviewed -Vital signs stable -Monitor labs -Pre-operative Hgb was 15.5; Now 13.1-->12.6-->12.4 -Pre-operative GFR was 31; Now 37-->35-->35 -Pre-operative creatinine was 2.1; Now 1.8-->1.9-->1.9 -Pre-operative BUN was 33; Now 25-->24-->26 -Pre-operative WBC was 9.61 with CRP WNL; WBC now 8.39-->9.22-->9.50 -Pre-operative A1C was 5.9% Osteoarthritis of left knee -Pain management per primary care team Hypomagnesemia, resovled -Magnesium 1.7-->2.1 -Supplemented Nocturia, stable -Reports occasional urgency as well -Reports this is new to him -Mild leukocytosis - likely stress reaction from surgery -Will order UA - Negative -Likely 2/2 pain medications 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 His PCP is Eddi Atwood PA-C From a hospitalist standpoint Alvaro continues to do pretty well. He remains off of oxygen and continues to urinate. UA was negative. His labs and vital signs remain stable. His magnesium was supplemented yesterday and is improved today. He continues to utilize his IS. His pain is improved but he continues to have difficulty working with therapies. They continue to recommend a SNF rehab stay. He will be discharged today to [facility] for a rehabilitation stay. He otherwise remains clinically stable. He is cleared for discharge pending primary team and PT/OT agreement. Thank you for allowing us to participate in the care of this patient!!
--- NOTE | 2019-03-10 07:56 | PCM.OPNOTE ---
- General Post-Op/Procedure Note Date of Surgery/Procedure: 03/07/19 Operative Procedure(s): left total knee arthroplasty Pre Op Diagnosis: left knee osteoarthrosis Post-Op Diagnosis: Same Anesthesia Technique: Local, MAC, Spinal Primary Surgeon: Vinicio Peters Anesthesia Provider: Cuca Blankenship Electrical Tech/Project Manager: Vicki Streeter Electrical Tech/Project Manager: Ivelisse Cuellar EBKhloe in mLs: 5 Complications: None Condition: Good Free Text/Narrative:: Intake & Output 03/09/19 03/10/19 03/10/19 22:59 06:59 14:59 Intake Total 280 500 Output Total 1300 1450 Balance -1020 -950 size 6 femur 5 tibia 35x10 9mm
[2019-03-10] MEDS: Hydrochlorothiazide 25 MG Tab PO SCH (09:01)
[2019-03-10] MEDS: Cholecalciferol (Vitamin D3) 5,000 UNIT Tab PO SCH (09:02)
[2019-03-10] MEDS: Docusate Sodium 100 MG Cap PO SCH (09:02)
[2019-03-10] MEDS: Famotidine 20 MG Tab PO SCH (09:06)
[2019-03-10] MEDS: Apixaban 2.5 MG Tab PO SCH (09:06)
[2019-03-10] MEDS: amLODIPine 10 MG Tab PO SCH (09:06)
[2019-03-10] MEDS: Metoprolol Succinate 50 MG Tab.ER PO SCH (09:09)
--- NOTE | 2019-03-10 13:08 | PCM.DCSUM1 ---
Discharge Summary - Hospital Course Brief History: Alvaro is a 78 yo male who underwent left TKA with Dr. Peters on 03-07-2019. The procedure was completed under spinal anesthesia with MAC. A post-operative adductor canal block was placed also. The pt tolerated the procedure well and was admitted to the Medical-Surgical Unit. Medical management was provided by the Hospitalist service. The pt's Hospital course was remarkable for slow progression with mobility and therapies. The pt's blood sugars were closely monitored and treated. The pt's Hgb on POD#1 was 12.4. On POD#1, Eliquis 2.5mg PO BID was initiated for VTE prophylaxis. SCDs and TEDs were also ordered. A Mepilex dressing was placed at the incision site at the time of surgery and remained clean and dry. The pt participated in P.T. and O.T. The pt was allowed to WBAT and used a FWW for mobility. On POD#3, the pt was deemed appropriate to discharge to the halfway for continued rehabilitation. - Discharge Data Discharge Date: 03/10/19 Discharge Disposition: Home, Self-Care 01 Condition: Good - Referral to Home Health Primary Care Physician: Melinda Soto NP - Patient Summary/Data Operative Procedure(s) Performed: left total knee arthroplasty Consults: Consultations 03/07/19 06:16 OT Evaluation and Treatment [CONS] Routine PT Evaluation and Treatment [CONS] Routine 03/07/19 06:18 Consult to Physician [CONS] Routine 03/09/19 07:20 Consult to Case Management/Demurrage Man [CONS] Routine - Patient Instructions Diet: Usual Diet as Tolerated Activity: Apply Ice, As Tolerated, Elevate Extremity, Full Weight Bearing Driving: Do Not Drive Showering/Bathing: May Shower Wound/Incision Care: Keep Operative Site/Wound Site Clean and Dry, Do NOT Change Dressing Notify Provider of: Fever, Increased Pain, Swelling and Redness, Drainage, Nausea and/or Vomiting Other/Special Instructions: Please get up and moving around EVERY HOUR while awake. This helps to prevent blood clots. Please use your walker and have help with mobility. Take a short walk in every hour while awake. Please take the Eliquis blood thinner twice daily. At the halfway, please complete the exercises that you learned during the Hospital stay. The therapy staff with help you progress with exercise and mobility as you are able. Have physical and occupational therapy at the halfway. Use the pain medication as needed. The medication may cause drowsiness and constipation. Contact your primary care provider for instructions if you are constipated. You may use a stool softener like docusate sodium or Colace 100mg twice daily and/or a laxative like Miralax daily for constipation. Increase your water and fiber intake while you are using the pain medication. Discontinue use of the pain medication as soon as able. Please do not use other medications that may cause drowsiness (other pain medications, anxiety pills, cold medications, sleeping pills, etc) while using the prescription pain medication. Do not use alcohol while using the pain medication. You may use acetaminophen or Tylenol for pain management, however, please ensure you are not using over 4000 mg or 4 grams of acetaminophen per day from all sources. Your pain medication has 325mg of acetaminophen per tablet. Wear the ABEL hose during the day and you may remove these at night. Elevate the limb to decrease swelling. Place ice to the area often. Place a towel between your skin and the blue pad. Use the incentive spirometer often. Take deep breaths throughout the day. Please keep the dressing in place until follow-up. Notify the Clinic if the dressing becomes saturated. Increase your protein intake while you are healing. Please closely monitor your blood sugars and notify your primary care provider with abnormal values. Elevated blood sugars increases the risk of infection. Call the Clinic with questions or concerns - [phone]. - Discharge Plan *PRESCRIPTION DRUG MONITORING PROGRAM REVIEWED*: No *COPY OF PRESCRIPTION DRUG MONITORING REPORT IN PATIENT SAILAJA: No Prescriptions/Med Rec: Acetaminophen/oxyCODONE [Percocet 325-5 MG] 1 - 2 tab PO Q4H PRN #60 tablet PRN Reason: Pain Apixaban [Eliquis] 2.5 mg PO BID #84 tablet Cyclobenzaprine [Flexeril] 5 mg PO BID PRN #20 tablet PRN Reason: Spasms Home Medications: Home Meds Hydrochlorothiazide 25 mg PO DAILY 07/07/16 [History] Levothyroxine Sodium 150 mcg PO DAILY 07/07/16 [History] Metoprolol Succinate [Toprol Xl] 100 mg PO DAILY 07/07/16 [History] Tamsulosin [Flomax] 0.4 mg PO BEDTIME 11/19/18 [History] Cholecalciferol (Vitamin D3) [Vitamin D3] 5,000 unit PO DAILY 03/04/19 [History] amLODIPine/Valsartan [Amlodipine-Valsartan 10-320 mg] 1 tab PO DAILY 03/04/19 [ History] Acetaminophen/oxyCODONE [Percocet 325-5 MG] 1 - 2 tab PO Q4H PRN #60 tablet [Rx] Apixaban [Eliquis] 2.5 mg PO BID #84 tablet 03/08/19 [Rx] Cyclobenzaprine [Flexeril] 5 mg PO BID PRN #20 tablet 03/08/19 [Rx] Docusate Sodium [Colace] 100 mg PO BID cap 03/08/19 [Rx] Famotidine [Pepcid] 20 mg PO Q12H tablet 03/08/19 [Rx] Sennosides [Senna] 8.6 mg PO BID PRN tablet 03/08/19 [Rx] bisacodyL [Dulcolax] 5 mg PO DAILY PRN tablet 03/08/19 [Rx] Patient Handouts: Apixaban oral tablets Referrals: Vicki Streeter PA-C [Physician Lock Setter] - (1. Follow-up with Vicki Streeter PA-C on Thursday, March 14, 2019 at 2:15pm. 2. Follow-up with Vicki Streeter PA-C on Friday, March 22, 2019 at 2:00pm. 3. Follow-up with Vicki Streeter PA-C on Friday, April 19, 2019 at 2:00pm.) - Discharge Summary/Plan Comment DC Time >30 min.: No - Patient Data Vitals - Most Recent: Last Vital Signs Temp 98.1 F 03/10/19 06:12 Pulse 109 H 03/10/19 09:09 Resp 18 03/10/19 06:12 BP 103/65 03/10/19 09:09 Pulse Ox 98 03/10/19 06:12 Weight - Most Recent: 257 lb 14.4 oz I&O - Last 24 hours: Intake & Output 03/09/19 03/10/19 03/10/19 22:59 06:59 14:59 Intake Total 280 500 300 Output Total 1300 1450 Balance -1020 -950 300 Lab Results - Last 24 hrs: Laboratory Results - last 24 hr 03/09/19 03/09/19 03/09/19 Range/Units 11:48 17:05 18:25 WBC (4.23-9.07) K/mm3 RBC (4.63-6.08) M/mm3 Hgb (13.7-17.5) gm/dl Hct (40.1-51.0) % MCV (79.0-92.2) fl MCH (25.7-32.2) pg MCHC (32.2-35.5) g/dl RDW Std Deviation (35.1-43.9) fL Plt Count (163-337) K/mm3 MPV (9.4-12.3) fl Neut % (Auto) (34.0-67.9) % Lymph % (Auto) (21.8-53.1) % [place] % (Auto) (5.3-12.2) % Eos % (Auto) (0.8-7.0) Baso % (Auto) (0.1-1.2) % Neut # (Auto) (1.78-5.38) K/mm3 Lymph # (Auto) (1.32-3.57) K/mm3 [place] # (Auto) (0.30-0.82) K/mm3 Eos # (Auto) (0.04-0.54) K/mm3 Baso # (Auto) (0.01-0.08) K/mm3 Sodium (136-145) mEq/L Potassium (3.5-5.1) mEq/L Chloride (98-107) mEq/L Carbon Dioxide (21-32) mEq/L Anion Gap (5-15) BUN (7-18) mg/dL Creatinine (0.7-1.3) mg/dL Est Cr Clr Drug Dosing mL/min Estimated GFR (MDRD) (>60) mL/min BUN/Creatinine Ratio (14-18) Glucose (83-115) mg/dL POC Glucose 114 H 124 H (83-110) mg/dL Calcium (8.5-10.1) mg/dL Magnesium (1.8-2.4) mg/dl Urine Color Yellow (Yellow) Urine Appearance Clear (Clear) Urine pH 6.0 (5.0-8.0) Ur Specific [place] 1.025 (1.005-1.030) Urine Protein Negative (Negative) Urine Glucose (UA) Negative (Negative) Urine Ketones Negative (Negative) Urine Occult Blood Negative (Negative) Urine Nitrite Negative (Negative) Urine Bilirubin Negative (Negative) Urine Urobilinogen 0.2 (0.2-1.0) Ur Leukocyte Esterase Negative (Negative) Urine RBC 0-5 (0-5) /hpf Urine WBC 0-5 (0-5) /hpf Ur Squamous Epith Cells 5-10 H (0-5) /hpf Urine Bacteria Not seen (FEW) /hpf Hyaline Casts 5-10 H (0-5) /lpf Urine Mucus Not seen (FEW) /hpf 03/09/19 03/10/19 03/10/19 Range/Units 20:44 05:24 05:24 WBC 9.50 H (4.23-9.07) K/mm3 RBC 4.03 L (4.63-6.08) M/mm3 Hgb 12.4 L (13.7-17.5) gm/dl Hct 37.4 L (40.1-51.0) % MCV 92.8 H (79.0-92.2) fl MCH 30.8 (25.7-32.2) pg MCHC 33.2 (32.2-35.5) g/dl RDW Std Deviation 43.8 (35.1-43.9) fL Plt Count 140 L (163-337) K/mm3 MPV 10.9 (9.4-12.3) fl Neut % (Auto) 62.8 (34.0-67.9) % Lymph % (Auto) 20.7 L (21.8-53.1) % [place] % (Auto) 12.4 H (5.3-12.2) % Eos % (Auto) 3.4 (0.8-7.0) Baso % (Auto) 0.4 (0.1-1.2) % Neut # (Auto) 5.96 H (1.78-5.38) K/mm3 Lymph # (Auto) 1.97 (1.32-3.57) K/mm3 [place] # (Auto) 1.18 H (0.30-0.82) K/mm3 Eos # (Auto) 0.32 (0.04-0.54) K/mm3 Baso # (Auto) 0.04 (0.01-0.08) K/mm3 Sodium 136 (136-145) mEq/L Potassium 4.1 (3.5-5.1) mEq/L Chloride 102 (98-107) mEq/L Carbon Dioxide 26 (21-32) mEq/L Anion Gap 12.1 (5-15) BUN 26 H (7-18) mg/dL Creatinine 1.9 H (0.7-1.3) mg/dL Est Cr Clr Drug Dosing 30.44 mL/min Estimated GFR (MDRD) 35 (>60) mL/min BUN/Creatinine Ratio 13.7 L (14-18) Glucose 114 (83-115) mg/dL POC Glucose 115 H (83-110) mg/dL Calcium 9.0 (8.5-10.1) mg/dL Magnesium 2.1 (1.8-2.4) mg/dl Urine Color (Yellow) Urine Appearance (Clear) Urine pH (5.0-8.0) Ur Specific [place] (1.005-1.030) Urine Protein (Negative) Urine Glucose (UA) (Negative) Urine Ketones (Negative) Urine Occult Blood (Negative) Urine Nitrite (Negative) Urine Bilirubin (Negative) Urine Urobilinogen (0.2-1.0) Ur Leukocyte Esterase (Negative) Urine RBC (0-5) /hpf Urine WBC (0-5) /hpf Ur Squamous Epith Cells (0-5) /hpf Urine Bacteria (FEW) /hpf Hyaline Casts (0-5) /lpf Urine Mucus (FEW) /hpf 03/10/19 03/10/19 Range/Units 06:14 11:35 WBC (4.23-9.07) K/mm3 RBC (4.63-6.08) M/mm3 Hgb (13.7-17.5) gm/dl Hct (40.1-51.0) % MCV (79.0-92.2) fl MCH (25.7-32.2) pg MCHC (32.2-35.5) g/dl RDW Std Deviation (35.1-43.9) fL Plt Count (163-337) K/mm3 MPV (9.4-12.3) fl Neut % (Auto) (34.0-67.9) % Lymph % (Auto) (21.8-53.1) % [place] % (Auto) (5.3-12.2) % Eos % (Auto) (0.8-7.0) Baso % (Auto) (0.1-1.2) % Neut # (Auto) (1.78-5.38) K/mm3 Lymph # (Auto) (1.32-3.57) K/mm3 [place] # (Auto) (0.30-0.82) K/mm3 Eos # (Auto) (0.04-0.54) K/mm3 Baso # (Auto) (0.01-0.08) K/mm3 Sodium (136-145) mEq/L Potassium (3.5-5.1) mEq/L Chloride (98-107) mEq/L Carbon Dioxide (21-32) mEq/L Anion Gap (5-15) BUN (7-18) mg/dL Creatinine (0.7-1.3) mg/dL Est Cr Clr Drug Dosing mL/min Estimated GFR (MDRD) (>60) mL/min BUN/Creatinine Ratio (14-18) Glucose (83-115) mg/dL POC Glucose 112 H 114 H (83-110) mg/dL Calcium (8.5-10.1) mg/dL Magnesium (1.8-2.4) mg/dl Urine Color (Yellow) Urine Appearance (Clear) Urine pH (5.0-8.0) Ur Specific [place] (1.005-1.030) Urine Protein (Negative) Urine Glucose (UA) (Negative) Urine Ketones (Negative) Urine Occult Blood (Negative) Urine Nitrite (Negative) Urine Bilirubin (Negative) Urine Urobilinogen (0.2-1.0) Ur Leukocyte Esterase (Negative) Urine RBC (0-5) /hpf Urine WBC (0-5) /hpf Ur Squamous Epith Cells (0-5) /hpf Urine Bacteria (FEW) /hpf Hyaline Casts (0-5) /lpf Urine Mucus (FEW) /hpf Med Orders - Current: Current Medications Amlodipine Besylate (Norvasc) 10 mg PO DAILY [facility] Last Admin: 03/10/19 09:06 Dose: 10 mg Apixaban (Eliquis) 2.5 mg PO BID [facility] Last Admin: 03/10/19 09:06 Dose: 2.5 mg Bisacodyl (Dulcolax) 5 mg PO DAILY PRN PRN Reason: Constipation Last Admin: 03/10/19 09:17 Dose: 5 mg Cholecalciferol (Vitamin D3) 5,000 unit PO DAILY [facility] Last Admin: 03/10/19 09:02 Dose: 5,000 unit Cyclobenzaprine HCl (Flexeril) 5 mg PO BID PRN PRN Reason: Spasms Last Admin: 03/09/19 21:01 Dose: 5 mg Docusate Sodium (Colace) 100 mg PO BID [facility] Last Admin: 03/10/19 09:02 Dose: 100 mg Famotidine (Pepcid) 20 mg PO DAILY [facility] Last Admin: 03/10/19 09:06 Dose: 20 mg Hydrochlorothiazide (Hydrochlorothiazide) 25 mg PO DAILY [facility] Last Admin: 03/10/19 09:01 Dose: 25 mg Hydromorphone HCl (Dilaudid) 0.2 mg IVPUSH Q2H PRN PRN Reason: Pain (moderate 4-6) Last Admin: 03/07/19 22:08 Dose: 0.2 mg Insulin Human Lispro (Humalog) 0 unit SUBCUT QIDACANDBED [facility]; Protocol Last Admin: 03/10/19 06:39 Dose: Not Given Levothyroxine Sodium (Synthroid) 150 mcg PO ACBREAKFAST [facility] Last Admin: 03/10/19 06:17 Dose: 150 mcg Metoprolol Succinate (Toprol Xl) 100 mg PO DAILY [facility] Last Admin: 03/10/19 09:09 Dose: 100 mg Naloxone HCl (Narcan) 0.1 mg IVPUSH Q5M PRN PRN Reason: Oversedation Ondansetron HCl (Zofran) 4 mg IVPUSH Q6H PRN PRN Reason: Nausea/Vomiting Oxycodone/Acetaminophen (Percocet 325-5 Mg) 1 - 2 tab PO Q4H PRN PRN Reason: Pain Last Admin: 03/10/19 06:17 Dose: 2 tab Senna (Senna) 8.6 mg PO BID PRN PRN Reason: Constipation Tamsulosin HCl (Flomax) 0.4 mg PO BEDTIME [facility] Last Admin: 03/09/19 21:01 Dose: 0.4 mg Discontinued Medications Acetaminophen (Tylenol) 975 mg PO ONETIME [facility] Stop: 03/07/19 12:00 Last Admin: 03/07/19 10:01 Dose: 975 mg Bupivacaine HCl (Sensorcaine-Mpf 0.25%) Confirm Administered Dose 30 ml .ROUTE .STK-MED ONE Stop: 03/07/19 10:09 Last Admin: 03/07/19 13:05 Dose: 30 ml Cefazolin Sodium (Ancef) Confirm Administered Dose 2 gm .ROUTE .STK-MED ONE Stop: 03/07/19 10:09 Last Admin: 03/07/19 13:00 Dose: 2 gm Morphine Sulfate 8 mg/Epinephrine HCl 0.3 mg/Cefuroxime Sodium 750 mg/Sodium Chloride 27.9 ml 0 mg .XX ONETIME ONE Stop: 03/07/19 10:01 Last Admin: 03/07/19 13:04 Dose: 758.3 mg Cyclobenzaprine HCl (Flexeril) 10 mg PO ONETIME ONE Stop: 03/08/19 20:31 Last Admin: 03/08/19 20:49 Dose: 10 mg Ephedrine Sulfate (Ephedrine Sulfate) 5 mg IVPUSH ASDIRECTED PRN PRN Reason: Hypotension Stop: 03/07/19 18:00 Famotidine (Pepcid) 20 mg PO Q12H [facility] Last Admin: 03/08/19 08:16 Dose: 20 mg Fentanyl (Sublimaze) Confirm Administered Dose 100 mcg .ROUTE .STK-MED ONE Stop: 03/07/19 10:37 Lactated Ringer's (Ringers, Lactated) 1,000 mls @ 125 mls/hr IV ASDIRECTED GREGG Stop: 03/07/19 18:00 Last Admin: 03/07/19 10:05 Dose: 125 mls/hr Cefazolin Sodium/Dextrose 2 gm (/ Premix) 50 mls @ 100 mls/hr IV Q8H [facility] Stop: 03/08/19 13:29 Last Admin: 03/08/19 12:13 Dose: Not Given Lidocaine HCl (Xylocaine-Mpf 1%) Confirm Administered Dose 4 mls @ as directed .ROUTE .STK-MED ONE Stop: 03/07/19 10:38 Lactated Ringer's (Ringers, Lactated) Confirm Administered Dose 1,000 mls @ as directed .ROUTE .STK-MED ONE Stop: 03/07/19 11:06 Sodium Chloride (Normal Saline) 1,000 mls @ 125 mls/hr IV ASDIRECTED GREGG Sodium Chloride (Normal Saline) 1,000 mls @ 125 mls/hr IV ASDIRECTED GREGG Last Admin: 03/08/19 00:59 Dose: 125 mls/hr Magnesium Sulfate 2 gm/ Premix 50 mls @ 25 mls/hr IV ONETIME ONE Stop: 03/09/19 09:29 Last Admin: 03/09/19 07:33 Dose: 25 mls/hr Iodine (Iodine 2% Mild Tincture) Confirm Administered Dose 30 ml .ROUTE .STK- MED ONE Stop: 03/07/19 10:09 Last Admin: 03/07/19 12:57 Dose: 18 ml Lidocaine/Sodium Bicarbonate (Buffered Lidocaine 1% In Ns 8.4%) 0.25 ml IDERM ONETIME PRN PRN Reason: Prior to IV Start Stop: 03/07/19 18:00 Losartan Potassium (Cozaar) 150 mg PO DAILY [facility] Midazolam HCl (Versed 1 Mg/Ml) Confirm Administered Dose 2 mg .ROUTE .STK-MED ONE Stop: 03/07/19 11:06 Ondansetron HCl (Zofran) 4 mg IVPUSH ONETIME PRN PRN Reason: Nausea/Vomiting Stop: 03/07/19 18:00 Oxycodone HCl (Oxycontin) 10 mg PO ONETIME [facility] Stop: 03/07/19 16:00 Last Admin: 03/07/19 10:01 Dose: 10 mg Oxycodone HCl (Oxycodone) 5 mg PO ONETIME ONE Stop: 03/08/19 14:01 Last Admin: 03/08/19 16:00 Dose: Not Given Pregabalin (Lyrica) 50 mg PO ONETIME [facility] Stop: 03/07/19 12:00 Last Admin: 03/07/19 10:01 Dose: 50 mg Propofol (Diprivan 20 Ml) Confirm Administered Dose 200 mg .ROUTE .STK-MED ONE Stop: 03/07/19 10:36 Propofol (Diprivan 20 Ml) Confirm Administered Dose 200 mg .ROUTE .STK-MED ONE Stop: 03/07/19 12:22 Ropivacaine (Naropin 0.5%) Confirm Administered Dose 30 ml .ROUTE .STK-MED ONE Stop: 03/07/19 11:24 Sodium Chloride (Saline Flush) 10 ml FLUSH ASDIRECTED PRN PRN Reason: Keep Vein Open Stop: 03/07/19 18:00 Tranexamic Acid (Cyklokapron) Confirm Administered Dose 1,000 mg .ROUTE .STK- MED ONE Stop: 03/07/19 10:09 Last Admin: 03/07/19 13:12 Dose: 1,000 mg Vancomycin HCl (Vancomycin) Confirm Administered Dose 1 gm .ROUTE .STK-MED ONE Stop: 03/07/19 10:09 Last Admin: 03/07/19 13:13 Dose: 1 gm
[2019-03-10 13:43] VITALS: BP 121/65; PULSE 87
--- NOTE | 2019-03-10 16:41 | OR ---
DATE OF OPERATION: 03/07/2019 SURGEON: Vinicio Peters MD OPERATION PERFORMED: Left total knee arthroplasty. PREOPERATIVE DIAGNOSIS: Left knee osteoarthrosis. POSTOPERATIVE DIAGNOSIS: Left knee osteoarthrosis. ANESTHESIA: Local MAC with spinal. ANESTHESIA PROVIDER: Cuca Blankenship. ASSISTANTS: Vicki Streeter PA-C, and Ivelisse Cuellar LPN. ESTIMATED BLOOD LOSS: 5 mL. COMPLICATIONS: None. CONDITION: Stable. IMPLANTS: 1. [place] size 6 cemented PS femur. 2. Mike size 5 cemented [place] tibial baseplate. 3. Mike size 5, 9 mm PS X3 polyethylene. 4. [place] size 35 x 10 mm cemented asymmetric patella. DESCRIPTION OF PROCEDURE: The patient was identified in the preop holding area. Proper site was marked and identified by the surgeon. The patient was taken back to the operating theater. After adequate anesthesia, the patient's left lower extremity had a nonsterile tourniquet applied and it was sterilely prepped and draped in the usual sterile fashion. OR time-out was performed. The patient received 2 g IV Ancef. At this time, the left lower extremity was exsanguinated. Tourniquet was insufflated to 300 mmHg. Standard medial parapatellar incision was made. Medial parapatellar arthrotomy was created. Deep fibers of the MCL were raised and anterior fat pad was resected. At this time, attention was turned to the patella. Patella measured a 26, it was resected to a 16 for 35 x 10 mm patella. Drill holes were then drilled and found to be in adequate position. The drill was then drilled in the distal femur and the intramedullary distal femoral cutting guide was then placed. 8 mm was resected off the distal femur and was found to be an adequate resection. Sizing guide was placed. It was found to be a size 6 cemented PS femur that was shown on the implant record at the beginning of this dictation. The drill holes were drilled for the epicondylar axis using [place] line and epicondyles as reference. At this time, the 4-in-1 cutting block was placed. An anterior posterior and anterior and posterior chamfer cuts were then completed. Box cut was completed at this time. Attention was turned to the tibia. The posterior medial lateral retractors were placed. The extramedullary tibial guide was placed. It was placed in the old footprint of the ACL. It was aligned with the center of the ankle and 0 degrees of slope, 9 mm was then resected off the unaffected side. There was found to be an acceptable reduction. At this time, posterior osteophytes were removed along with medial and lateral meniscus. A trial implant was placed with a correct sized tibia that was mentioned at the beginning of the dictation. A Mike size 5, 9 mm PS X3 polyethylene insert was then placed. The patient's knee was brought through range of motion. The patella was tracking centrally and was stable to varus and valgus stress. Alignment was found to be roughly at 0 degrees. The tibia was stamped and drilled in proper rotation. The universal tibial base plate was impacted in place. Next, the [place] size 6 cemented PS femur impacted into place and the [place] size 5, 9 mm PS X3 polyethylene insert was placed. The patient's knee was brought into full extension. The patella was then cemented in place at this time. Tourniquet was deflated One liter dilute Betadine solution was irrigated through the knee along with 3 L of pulse lavage irrigation with Ancef. Periarticular injection was then completed. The patient's knee was brought through a range of motion. Once the cement had time to set up and it was found to be stable to varus valgus stress, the patella was tracking centrally with full range of motion. At this time, a #2 barbed suture was used for closure of the medial parapatellar arthrotomy. Topical tranexamic acid was placed. 2-0 Vicryl was used subcutaneously, Prineo was used for the skin. The patient tolerated the procedure well and was sent to the PACU in stable condition. RUTH /[id number] ELIUD
== END 2019-03-10 13:32 | disposition home or self-care (01) | DRG 470 ==
LOC: JD.SDS 09:24 → JD.MS 09:25
PROVIDERS: ADMIT Orthopaedic Surgery; ATTEND Orthopaedic Surgery
PROC: 0SRD0J9 Replacement of Left Knee Joint with Synthetic Substitute, Cemented, Open Approach (ICD-10-PCS; principal; 2019-03-07)
DX: M17.11 Unilateral primary osteoarthritis, right knee (principal); M17.12 Unilateral primary osteoarthritis, left knee; N40.0 Benign prostatic hyperplasia without lower urinary tract symptoms; E03.9 Hypothyroidism, unspecified; I12.9 Hypertensive chronic kidney disease with stage 1 through stage 4 chronic kidney disease, or unspecified chronic kidney disease; E11.22 Type 2 diabetes mellitus with diabetic chronic kidney disease; N18.3 Chronic kidney disease, stage 3 (moderate); K21.9 Gastro-esophageal reflux disease without esophagitis; I73.9 Peripheral vascular disease, unspecified; K64.9 Unspecified hemorrhoids; R06.02 Shortness of breath; D72.829 Elevated white blood cell count, unspecified; R35.1 Nocturia; E83.42 Hypomagnesemia; F43.9 Reaction to severe stress, unspecified; Z86.711 Personal history of pulmonary embolism; Z79.890 Hormone replacement therapy; Z79.899 Other long term (current) drug therapy; Z98.49 Cataract extraction status, unspecified eye
CPT/HCPCS: 01402; 36415; 64450; 73560-26-LT; 73560-LT; 80048; 80053; 81001; 82962; 83735; 85025; 85027; 87641; 97110-GP; 97116-GP; 97161-GP; 97166-GO; 97530-GO; 97530-GP; 97535-GO; A9270-GY; C1713; C1776; J0171; J0690; J0697; J1170; J2001; J2250; J2270; J2704; J2795; J3010; J3370; J3475; J3490; J7030; J7120

== ENCOUNTER 2019-03-22 15:07 | Emergency (ER) | payer MEDICARE, OTHER ==
--- NOTE | 2019-03-22 15:33 | EDM.PDOC ---
ED HPI GENERAL MEDICAL PROBLEM - General Chief Complaint: Fever Stated Complaint: FEVER Time Seen by Provider: 03/22/19 15:24 Source of Information: Reports: Patient History Limitations: Reports: No Limitations - History of Present Illness INITIAL COMMENTS - FREE TEXT/NARRATIVE: 78-year-old male presents to the ED with a four-day history of fever and chills and associated dysuria. It yañez in the distal urethra with voiding . He did not have a catheter placed at the time of his left total knee replacement on March 07 as far she can recall.. He has a history of prostatism with nocturia usually 3 or 4 times nightly. Fairly had no problems with retention postoperatively. We will do a bladder scan post residual today. He states he felt warm cold flushed and hot but no severe riders worse teeth were chattering. Back pain. Appetite remains poor. Condition of loose diarrhea stools 2 or 3 daily since discharge from the hospital. If knee is feeling markedly improved since surgery with much less pain. He did see Saida Streeter-- orthopedic PA just prior to coming to the ED for wound review and she was happy with the way the wound look with no evidence of infection. She is the one that advised him to come to the ED for evaluation due to persistent fever and chills for 4 days. Also Tylenol was taken some time earlier this morning. Onset: Gradual Onset Date: 03/18/19 (Reportedly has had fever and intermittent chills will last 4 days.) Duration: Day(s):, Intermittent, Waxing/Waning Location: Reports: Generalized (Fever feels very hot and flushed and at other times feels her children estimate on extra closing blankets.) Quality: Reports: Other Severity: Moderate ([place] fever and chills 4 days with associated dysuria.) Improves with: Reports: None Worsens with: Reports: None Context: Reports: Other (He had his left knee total replaced on March 07. The wound itself is healing adequately without any signs of infection.). Denies : Activity, Exercise, Lifting, Sick Contact, Trauma Associated Symptoms: Reports: Fever/Chills, Loss of Appetite, Malaise, Other ( Diarrhea with 2-3 loose watery stools per day.). Denies: Headaches Treatments SPLASH LINE OPERATOR: Reports: Acetaminophen - Related Data Allergies Allergy/AdvReac Type Severity Reaction Status Date / Time No Known Allergies Allergy Verified 03/22/19 15:21 Home Meds: Home Meds Hydrochlorothiazide 25 mg PO DAILY 07/07/16 [History] Levothyroxine Sodium 150 mcg PO DAILY 07/07/16 [History] Metoprolol Succinate [Toprol Xl] 100 mg PO DAILY 07/07/16 [History] Tamsulosin [Flomax] 0.4 mg PO BEDTIME 11/19/18 [History] Cholecalciferol (Vitamin D3) [Vitamin D3] 5,000 unit PO DAILY 03/04/19 [History] amLODIPine/Valsartan [Amlodipine-Valsartan 10-320 mg] 1 tab PO DAILY 03/04/19 [ History] Acetaminophen/oxyCODONE [Percocet 325-5 MG] 1 - 2 tab PO Q4H PRN #60 tablet [Rx] Apixaban [Eliquis] 2.5 mg PO BID #84 tablet 03/08/19 [Rx] Docusate Sodium [Colace] 100 mg PO BID cap 03/08/19 [Rx] Famotidine [Pepcid] 20 mg PO Q12H tablet 03/08/19 [Rx] Sennosides [Senna] 8.6 mg PO BID PRN tablet 03/08/19 [Rx] bisacodyL [Dulcolax] 5 mg PO DAILY PRN tablet 03/08/19 [Rx] Acetaminophen [Tylenol] 325 mg PO Q4H PRN 03/22/19 [History] Multivitamin [Multivitamins] 1 tab PO DAILY 03/22/19 [History] Tamsulosin [Tamsulosin 24 Hr] 0.4 mg PO DAILY #30 cap.er 03/22/19 [Rx] levoFLOXacin [Levaquin] 500 mg PO DAILY #9 tab 03/22/19 [Rx] Past Medical History HEENT History: Reports: Cataract, Other (See Below) Other HEENT History: dental infection Cardiovascular History: Reports: Hypertension, SOB on Exertion, Other (See Below ) Other Cardiovascular History: Claudication, History of Paroxysmal SVT with ablation, lower extremity swelling Respiratory History: Reports: PE, SOB Gastrointestinal History: Reports: Colon Polyp, GERD, Hemorrhoids Genitourinary History: Reports: BPH, Prostate Disorder, Other (See Below) Other Genitourinary History: Stage 3 Kidney Disease [employer] History: Reports: None Musculoskeletal History: Reports: Osteoarthritis Neurological History: Reports: None Psychiatric History: Reports: None Endocrine/Metabolic History: Reports: Diabetes, Type II (Controlled only with diet.), Hypothyroidism, Obesity/BMI 30+ Hematologic History: Reports: None Immunologic History: Reports: None Oncologic (Cancer) History: Reports: None Dermatologic History: Reports: None - Infectious Disease History Infectious Disease History: Reports: None - Past Surgical History Head Surgeries/Procedures: Reports: None HEENT Surgical History: Reports: Cataract Surgery Cardiovascular Surgical History: Reports: Cardiac Ablation Other Cardiovascular Surgeries/Procedures: Catheter Ablation Respiratory Surgical History: Reports: None GI Surgical History: Reports: Colonoscopy, Other (See Below) Other GI Surgeries/Procedures: Hemorrhoidectomy, Umbilical Hernia Repair Male Surgical History: Reports: None Endocrine Surgical History: Reports: None Neurological Surgical History: Reports: None Musculoskeletal Surgical History: Reports: None Oncologic Surgical History: Reports: None Dermatological Surgical History: Reports: None - Past Imaging History Past Imaging History: Reports: None Social & Family History - Caffeine Use Caffeine Use: Reports: Coffee - Living Situation & Occupation Living situation: Reports: , with Spouse Occupation: Employed ([employer]) ED [facility] - Review of Systems Review Of Systems: See Below Constitutional: Reports: Fever, Chills, Malaise, Weakness, Fatigue, Decreased Appetite, Weight Loss HEENT: Reports: Glasses (For reading only) Respiratory: Reports: Cough. Denies: Shortness of Breath (Animal nonproductive cough), Wheezing Cardiovascular: Reports: Blood Pressure Problem, Dyspnea on Exertion, Edema, Palpitations (There are no open areas a history of paroxysmal atrial flutter.). Denies: Chest Pain, Claudication, Lightheadedness, Orthopnea Endocrine: Reports: Fatigue GI/Abdominal: Reports: Diarrhea (3-4 loose bowel movements a day for the last 5 days) : Reports: Dysuria (Particularly terminal dysuria at the urethral meatus.), Frequency ( will C. difficile infection from antibiotics.), Urgency Musculoskeletal: Reports: Shoulder Pain, Back Pain, Joint Pain (Both knees but left much improved since surgery to replace the knee March 07) Skin: Reports: Bruising ( the right knee has not been replaced appropriate for surgery ) Neurological: Reports: No Symptoms (on the right leg. ) Psychiatric: Reports: No Symptoms Hematologic/Lymphatic: Reports: No Symptoms Immunologic: Reports: No Symptoms ED EXAM, SEPSIS - Physical Exam Exam: See Below Exam Limited By: No Limitations General Appearance: WD/WN, No Apparent Distress, Other ([place] 36.4. Pulse is 80 and sinus surgery 16 with O2 sats are 98% on room air. BP is 140/76) Eye Exam: Bilateral Eye: Normal Inspection Throat/Mouth: Normal Inspection, Normal Lips, Normal Oropharynx, Other Head: Atraumatic, Normocephalic (Time is mildly dry.) Neck: Normal Inspection, Supple, Non-Tender, Limited Range of Motion, Tender Lateral (Mild). No: Full Range of Motion, Carotid Bruit, Lymphadenopathy (L), Lymphadenopathy (R) Respiratory/Chest: No Respiratory Distress, Lungs Clear, Normal Breath Sounds, No Accessory Muscle Use, Chest Non-Tender Cardiovascular: Normal Peripheral Pulses, Regular Rate, Rhythm, No JVD, No Murmur, No Rub. No: No Edema Peripheral Pulses: 2+: Posterior Tibial (L), Posterior Tibial (R), Dorsalis Pedis (L), Dorsalis Pedis (R) GI/Abdominal Exam: Normal Bowel Sounds, Soft, Non-Tender, No Organomegaly, No Abnormal Bruit, No Mass, Pelvis Stable, Other (Obesity limits ability to palpate solid organs.) Back: Normal Inspection, Decreased Range of Motion. No: CVA Tenderness (L), CVA Tenderness (R), Paraspinal Tenderness Extremities: Pedal Edema (Plus dependent edema both lower extremities.), Other ( The left knee wound has just been bandaged by Saida grimaldo orthopedic surgery PA and she felt that the knee looked good postoperatively with no signs of infection and I did not take apart all the bandages to have a look. The right knee shows no abnormalities.) Neurological: Alert, Oriented, CN II-XII Intact, Normal Cognition Psychiatric: Normal Affect, Normal Mood Skin: Warm, Dry, Intact, Normal Color, No Rash EKG INTERPRETATION EKG Date: 03/22/19 Time: 15:45 Rhythm: NSR Rate (Beats/Min): 78 [place]: Normal P-Wave: Present (Consider borderline first-degree AV block) QRS: Other (Likely left atrial hypertrophy pattern. Q waves leads 3 and aVF. Consider old inferior wall myocardial infarction.) ST-T: Other (T-wave flattening in V2 only. Nonspecific finding diffuse early repolarization pattern with no signs of ischemia) QT: Normal EKG Interpretation Comments: Abnormal ECG Course - Vital Signs Last Recorded V/S: Last Vital Signs Temp 36.8 C 03/22/19 16:04 Pulse 80 03/22/19 15:18 Resp 16 03/22/19 15:18 BP 140/76 03/22/19 15:18 Pulse Ox 98 03/22/19 15:18 - Orders/Labs/Meds Orders: Active Orders 24 hr Category Date Time Status Bladder Scan [RC] ASDIRECTED Care 03/22/19 15:40 Active EKG Documentation Completion [RC] STAT Care 03/22/19 15:34 Active Chest 1V Frontal [CR] Stat Exams 03/22/19 15:33 Taken C DIFFICILE PCR W/REFLEX [MOLEC] Stat Lab 03/22/19 15:45 Ordered CULTURE BLOOD [BC] Stat Lab 03/22/19 16:00 Received CULTURE BLOOD [BC] Stat Lab 03/22/19 16:15 Received CULTURE URINE [RM] Stat Lab 03/22/19 17:42 Received INFLUENZA A+B AG SCREEN [RM] Stat Lab 03/22/19 16:11 Ordered Levofloxacin/Dextrose 5%-Water [Levaquin in D5W 750 MG/ Med 03/22/19 17:57 Active 150 ML] 750 mg Premix Bag 1 bag IV ONETIME Sodium Chloride 0.9% [Normal Saline] 1,000 ml Med 03/22/19 15:45 Active IV ASDIRECTED Blood Culture x2 Reflex Set [OM.PC] Stat Oth 03/22/19 15:34 Ordered Medication Orders Sodium Chloride (Normal Saline) 1,000 mls @ 100 mls/hr IV ASDIRECTED GREGG Last Infusion: 03/22/19 18:16 Dose: 400 mls/hr Admin: 03/22/19 16:05 Dose: 100 mls/hr Levofloxacin/Dextrose 750 mg/ (Premix) 150 mls @ 100 mls/hr IV ONETIME ONE Stop: 03/22/19 19:26 Last Admin: 03/22/19 18:03 Dose: 100 mls/hr Labs: Laboratory Tests 03/22/19 03/22/19 03/22/19 Range/Units 16:00 16:00 16:00 WBC 9.73 H (4.23-9.07) K/mm3 RBC 4.16 L (4.63-6.08) M/mm3 Hgb 12.6 L (13.7-17.5) gm/dl Hct 37.9 L (40.1-51.0) % MCV 91.1 (79.0-92.2) fl MCH 30.3 (25.7-32.2) pg MCHC 33.2 (32.2-35.5) g/dl RDW Std Deviation 41.8 (35.1-43.9) fL Plt Count 316 D (163-337) K/mm3 MPV 9.8 (9.4-12.3) fl Neutrophils % (Manual) 53 (40-60) % Band Neutrophils % 1 (0-10) % Lymphocytes % (Manual) 27 (20-40) % Atypical Lymphs % 0 % Monocytes % (Manual) 16 H (2-10) % Eosinophils % (Manual) 2 (0.8-7.0) % Basophils % (Manual) 1 (0.2-1.2) Toxic Granulation Few Platelet Estimate Adequate RBC Morph Comment Normal PT 10.3 (9.7-12.0) SECONDS INR 0.94 APTT 26 (22-31) SECONDS Sodium 127 L (136-145) mEq/L Potassium 3.8 (3.5-5.1) mEq/L Chloride 91 L (98-107) mEq/L Carbon Dioxide 28 (21-32) mEq/L Anion Gap 11.8 (5-15) BUN 27 H (7-18) mg/dL Creatinine 1.8 H (0.7-1.3) mg/dL Est Cr Clr Drug Dosing 33.25 mL/min Estimated GFR (MDRD) 37 (>60) mL/min BUN/Creatinine Ratio 15.0 (14-18) Glucose 124 H (83-115) mg/dL Serum Osmolality (280-300) mosm/kg Lactic Acid (0.4-2.0) mmol/L Calcium 9.0 (8.5-10.1) mg/dL Magnesium 2.1 (1.8-2.4) mg/dl Total Bilirubin 0.6 (0.2-1.0) mg/dL AST 29 (15-37) U/L ALT 47 (16-63) U/L Alkaline Phosphatase 82 (46-116) U/L Troponin I < 0.017 (0.00-0.056) ng/mL C-Reactive Protein 12.8 H* (<1.0) mg/dL NT-Pro-B Natriuret Pep (0-450) pg/mL Total Protein 7.6 (6.4-8.2) g/dl Albumin 2.6 L (3.4-5.0) g/dl Globulin 5.0 gm/dL Albumin/Globulin Ratio 0.5 L (1-2) Urine Color (Yellow) Urine Appearance (Clear) Urine pH (5.0-8.0) Ur Specific [place] (1.005-1.030) Urine Protein (Negative) Urine Glucose (UA) (Negative) Urine Ketones (Negative) Urine Occult Blood (Negative) Urine Nitrite (Negative) Urine Bilirubin (Negative) Urine Urobilinogen (0.2-1.0) Ur Leukocyte Esterase (Negative) Urine RBC (0-5) /hpf Urine WBC (0-5) /hpf Ur Squamous Epith Cells (0-5) /hpf Urine Bacteria (FEW) /hpf Urine Mucus (FEW) /hpf 03/22/19 03/22/19 03/22/19 Range/Units 16:00 16:00 16:00 WBC (4.23-9.07) K/mm3 RBC (4.63-6.08) M/mm3 Hgb (13.7-17.5) gm/dl Hct (40.1-51.0) % MCV (79.0-92.2) fl MCH (25.7-32.2) pg MCHC (32.2-35.5) g/dl RDW Std Deviation (35.1-43.9) fL Plt Count (163-337) K/mm3 MPV (9.4-12.3) fl Neutrophils % (Manual) (40-60) % Band Neutrophils % (0-10) % Lymphocytes % (Manual) (20-40) % Atypical Lymphs % % Monocytes % (Manual) (2-10) % Eosinophils % (Manual) (0.8-7.0) % Basophils % (Manual) (0.2-1.2) Toxic Granulation Platelet Estimate RBC Morph Comment PT (9.7-12.0) SECONDS INR APTT (22-31) SECONDS Sodium (136-145) mEq/L Potassium (3.5-5.1) mEq/L Chloride (98-107) mEq/L Carbon Dioxide (21-32) mEq/L Anion Gap (5-15) BUN (7-18) mg/dL Creatinine (0.7-1.3) mg/dL Est Cr Clr Drug Dosing mL/min Estimated GFR (MDRD) (>60) mL/min BUN/Creatinine Ratio (14-18) Glucose (83-115) mg/dL Serum Osmolality 278 L (280-300) mosm/kg Lactic Acid 1.1 (0.4-2.0) mmol/L Calcium (8.5-10.1) mg/dL Magnesium (1.8-2.4) mg/dl Total Bilirubin (0.2-1.0) mg/dL AST (15-37) U/L ALT (16-63) U/L Alkaline Phosphatase (46-116) U/L Troponin I (0.00-0.056) ng/mL C-Reactive Protein (<1.0) mg/dL NT-Pro-B Natriuret Pep 67 (0-450) pg/mL Total Protein (6.4-8.2) g/dl Albumin (3.4-5.0) g/dl Globulin gm/dL Albumin/Globulin Ratio (1-2) Urine Color (Yellow) Urine Appearance (Clear) Urine pH (5.0-8.0) Ur Specific [place] (1.005-1.030) Urine Protein (Negative) Urine Glucose (UA) (Negative) Urine Ketones (Negative) Urine Occult Blood (Negative) Urine Nitrite (Negative) Urine Bilirubin (Negative) Urine Urobilinogen (0.2-1.0) Ur Leukocyte Esterase (Negative) Urine RBC (0-5) /hpf Urine WBC (0-5) /hpf Ur Squamous Epith Cells (0-5) /hpf Urine Bacteria (FEW) /hpf Urine Mucus (FEW) /hpf 03/22/19 Range/Units 17:42 WBC (4.23-9.07) K/mm3 RBC (4.63-6.08) M/mm3 Hgb (13.7-17.5) gm/dl Hct (40.1-51.0) % MCV (79.0-92.2) fl MCH (25.7-32.2) pg MCHC (32.2-35.5) g/dl RDW Std Deviation (35.1-43.9) fL Plt Count (163-337) K/mm3 MPV (9.4-12.3) fl Neutrophils % (Manual) (40-60) % Band Neutrophils % (0-10) % Lymphocytes % (Manual) (20-40) % Atypical Lymphs % % Monocytes % (Manual) (2-10) % Eosinophils % (Manual) (0.8-7.0) % Basophils % (Manual) (0.2-1.2) Toxic Granulation Platelet Estimate RBC Morph Comment PT (9.7-12.0) SECONDS INR APTT (22-31) SECONDS Sodium (136-145) mEq/L Potassium (3.5-5.1) mEq/L Chloride (98-107) mEq/L Carbon Dioxide (21-32) mEq/L Anion Gap (5-15) BUN (7-18) mg/dL Creatinine (0.7-1.3) mg/dL Est Cr Clr Drug Dosing mL/min Estimated GFR (MDRD) (>60) mL/min BUN/Creatinine Ratio (14-18) Glucose (83-115) mg/dL Serum Osmolality (280-300) mosm/kg Lactic Acid (0.4-2.0) mmol/L Calcium (8.5-10.1) mg/dL Magnesium (1.8-2.4) mg/dl Total Bilirubin (0.2-1.0) mg/dL AST (15-37) U/L ALT (16-63) U/L Alkaline Phosphatase (46-116) U/L Troponin I (0.00-0.056) ng/mL C-Reactive Protein (<1.0) mg/dL NT-Pro-B Natriuret Pep (0-450) pg/mL Total Protein (6.4-8.2) g/dl Albumin (3.4-5.0) g/dl Globulin gm/dL Albumin/Globulin Ratio (1-2) Urine Color Yellow (Yellow) Urine Appearance Slt cloudy H (Clear) Urine pH 6.0 (5.0-8.0) Ur Specific [place] 1.020 (1.005-1.030) Urine Protein Negative (Negative) Urine Glucose (UA) Negative (Negative) Urine Ketones Negative (Negative) Urine Occult Blood Trace-lysed H (Negative) Urine Nitrite Positive H (Negative) Urine Bilirubin Negative (Negative) Urine Urobilinogen 0.2 (0.2-1.0) Ur Leukocyte Esterase 1+ H (Negative) Urine RBC 0-5 (0-5) /hpf Urine WBC 20-30 H (0-5) /hpf Ur Squamous Epith Cells 0-5 (0-5) /hpf Urine Bacteria Many H (FEW) /hpf Urine Mucus Not seen (FEW) /hpf Meds: Medications Generic Name Dose Route Start Last Admin Trade Name Freq PRN Reason Stop Dose Admin Sodium Chloride 1,000 mls @ 100 mls/hr 03/22/19 15:45 03/22/19 18:16 Normal Saline IV 400 mls/hr ASDIRECTED GREGG Infusion Levofloxacin/Dextrose 750 mg/ 150 mls @ 100 mls/hr 03/22/19 17:57 03/22/19 18 :03 Premix IV 03/22/19 19:26 100 mls/hr ONETIME ONE Administration Discontinued Medications Generic Name Dose Route Start Last Admin Trade Name Freq PRN Reason Stop Dose Admin Acetaminophen 650 mg 03/22/19 15:37 03/22/19 16:04 Tylenol PO 03/22/19 15:38 650 mg ONETIME ONE Administration - Radiology Interpretation Free Text/Narrative:: 78-year-old male presents to the ED for evaluation of fever and chills 4 days. Of note this is subjective and not documented by correction staff where he is rehabilitating post left total knee surgery. His left knee wound was just inspected by orthopedics surgical MAMADOU grimaldo and she did not feel there was any signs of infection or involvement of the left knee at this time. Is complaining of dysuria particularly terminally for the last 4 days. He denies any costophrenic angle or flank pain. But he said chills fever without rigors. He's been taking Tylenol fairly regular basis for fever relief. He continues to have poor appetite postop and is having 3-4 loose stools per day since arrival at the correction. Of note he had his left total knee replacement surgery done March 07. He has a minimal cough. No headache nothing that would suggest influenza. And septic workup will be done. By history has a prostatism issue and is up nocturia 3-4 times nightly. - Re-Assessments/Exams Free Text/Narrative Re-Assessment/Exam: 03/22/19 16:10 Portable chest x-ray reveals a very poor inspirational view. This provides some haziness therefore in the left lower lobe and suggest cardiomegaly. Compared to old films she does have some mild cardiomegaly no history of pleural effusion. There may be some atelectasis in the left base but no definitive pneumonia. 03/22/19 17:17 White blood cell count is normal at 9.73 with 53% neutrophils and 1% band cells reported. Hemoglobin is 12.6 with hematocrit of 37.9. Platelet count 316,000. PT is 10.3 with an INR of 0.94. PTT is 26. Sodium is low at 127 with a potassium of 3.8. Chloride is 91 with a bicarbonate of 28. Anion gap is 11.8. BUNs 27 with a creatinine of 1.8 GFR is 37 I stage III chronic kidney disease. Glucose 124. Lactic acid is 1.1. Calcium is 9.0 magnesium is 2.1. Liver function is normal. Troponin I is less than 0.017. C- reactive protein elevated at 12.8 BNP is 67 though protein is 7.6 with a low albumin fraction of 2.6. Influenza screen is negative. Patient has not yet been able to produce a urine specimen. 03/22/19 17:50 Patient has no voided approximate 70-75 mils and his postvoid bladder scan reveals about 85-90 mils in the bladder. No free does have some incomplete emptying. Not bad enough for her to require catheterization. I'm therefore going to treat him with Levaquin 750 mg IV starting now . 03/22/19 19:00 Urinalysis shows slightly cloudy urine positive nitrates 1+ leukocyte esterase with 20-30 white blood cells per high-power field and many bacteria appreciated. Urine culture has been ordered Departure - Departure Time of Disposition: 19:45 Disposition: Home, Self-Care 01 Condition: Fair Clinical Impression: Urinary tract infection after immobility, Hyponatremia with decreased serum osmolality, Benign prostatic hyperplasia with incomplete bladder emptying - Discharge Information *PRESCRIPTION DRUG MONITORING PROGRAM REVIEWED*: Not Applicable *COPY OF PRESCRIPTION DRUG MONITORING REPORT IN PATIENT SAILAJA: Not Applicable Prescriptions: levoFLOXacin [Levaquin] 500 mg PO DAILY #9 tab Tamsulosin [Tamsulosin 24 Hr] 0.4 mg PO DAILY #30 cap.er Instructions: Urinary Tract Infection, Adult Referrals: Melinda Soto, SOURCING ENGINEER [Primary Care Provider] - Forms: ED Department Discharge Additional Instructions: Evaluation in the emergency him today in regards to burning with voiding 4 days with development of fever and decreased appetite. Chest x-ray is essentially normal showing no signs of pneumonia. Influenza screen was negative. Urinalysis once obtained is strongly positive for an infective process because you have a fever this means you have developed kidney infection and bacteria in your bloodstream. First dose of antibiotic Levaquin 750 mg intravenously in the emergency department. They should start to clear up infection very quickly and fever should dissipate over the next 36 hours. He will need to take a pill Levaquin 500 mg once daily for the another 9 days starting at noon hour tomorrow to bring the infection under control. He had a problem identified was low serum sodium level at 127 with normal being 140. This is been caused by drinking too much water and diluting your sodium in your bloodstream. He knew to take out a other fluids such as Gatorade or Powerade and /or juices instead of just water to provide rehydration. Also mildly dehydrated and you were given nearly a liter of IV fluids while in the ED. This will also start to correct her serum sodium level back into the 130s. Sodium is associate with loss of appetite and weakness in the extremities and muscles. I'm going to suggest that you start a medication called Flomax 0.4 mg once daily to improve your urinary tract flow of urine by helping the bladder contract better and the prostate is sure slowly shrink over time. Medications to be taken once daily primarily with supper meal. Sepsis Event Note - Evaluation Sepsis Screening Result: No Definite Risk - Focused Exam Vital Signs: Vital Signs Temp Temp Pulse Resp BP Pulse Ox 03/22/19 16:04 36.8 C 03/22/19 15:18 36.4 C 80 16 140/76 98 Date Exam was Performed: 03/22/19 Time Exam was Performed: 19:19 - My Orders Last 24 Hours: My Active Orders 03/22/19 15:33 Chest 1V Frontal [CR] Stat 03/22/19 15:34 EKG Documentation Completion [RC] STAT Blood Culture x2 Reflex Set [OM.PC] Stat 03/22/19 15:40 Bladder Scan [RC] ASDIRECTED 03/22/19 15:45 C DIFFICILE PCR W/REFLEX [MOLEC] Stat Sodium Chloride 0.9% [Normal Saline] 1,000 ml IV ASDIRECTED 03/22/19 16:00 CULTURE BLOOD [BC] Stat 03/22/19 16:11 INFLUENZA A+B AG SCREEN [RM] Stat 03/22/19 16:15 CULTURE BLOOD [BC] Stat 03/22/19 17:42 CULTURE URINE [RM] Stat 03/22/19 17:57 Levofloxacin/Dextrose 5%-Water [Levaquin in D5W 750 MG/150 ML] 750 mg Premix Bag 1 bag IV ONETIME - Assessment/Plan Last 24 Hours: My Active Orders 03/22/19 15:33 Chest 1V Frontal [CR] Stat 03/22/19 15:34 EKG Documentation Completion [RC] STAT Blood Culture x2 Reflex Set [OM.PC] Stat 03/22/19 15:40 Bladder Scan [RC] ASDIRECTED 03/22/19 15:45 C DIFFICILE PCR W/REFLEX [MOLEC] Stat Sodium Chloride 0.9% [Normal Saline] 1,000 ml IV ASDIRECTED 03/22/19 16:00 CULTURE BLOOD [BC] Stat 03/22/19 16:11 INFLUENZA A+B AG SCREEN [RM] Stat 03/22/19 16:15 CULTURE BLOOD [BC] Stat 03/22/19 17:42 CULTURE URINE [RM] Stat 03/22/19 17:57 Levofloxacin/Dextrose 5%-Water [Levaquin in D5W 750 MG/150 ML] 750 mg Premix Bag 1 bag IV ONETIME
[2019-03-22] MEDS ORDERED: Acetaminophen 325 MG Tab PO ONE (15:37)
[2019-03-22] MEDS ORDERED: Sodium Chloride 0.9% 1,000 ML IV SCH (15:45)
[2019-03-22] MEDS ORDERED: Levofloxacin/Dextrose 5%-Water 750 MG in Premix Bag 1 BAG IV ONE (17:57)
[2019-03-22 20:14] VITALS: BP 123/84; PULSE 77
--- NOTE | 2019-03-24 07:02 | CR ---
Chest: Portable view of the chest was obtained. Comparison: Prior chest x-ray of 02/09/19. Heart is mildly enlarged. Upper mediastinum is within normal limits. Lungs are clear with no acute parenchymal change. Bony structures show inferior spurring within both inferior acromioclavicular joints. Impression: 1. Mild cardiomegaly. 2. Other findings as noted above. 3. Nothing acute is seen on portable chest x-ray. Diagnostic code #2 This report was dictated in [place] Standard Time
== END 2019-03-22 19:53 | disposition home or self-care (01) ==
LOC: JD.ED 15:07
DX: N40.0 Benign prostatic hyperplasia without lower urinary tract symptoms (principal); N39.0 Urinary tract infection, site not specified; I12.9 Hypertensive chronic kidney disease with stage 1 through stage 4 chronic kidney disease, or unspecified chronic kidney disease; N18.3 Chronic kidney disease, stage 3 (moderate); E11.22 Type 2 diabetes mellitus with diabetic chronic kidney disease; E87.1 Hypo-osmolality and hyponatremia; Z79.899 Other long term (current) drug therapy
CPT/HCPCS: 36415; 51798; 71045; 80053; 81001; 83605; 83735; 83880; 83930; 84484; 85007; 85027; 85610; 85730; 86140; 87040; 87086; 87088; 87184; 87186; 87804; 93005; 96361; 96365; 96366; 99284; A9270; J1956; J7030

== ENCOUNTER 2021-10-10 08:08 | Day surgery (SDC) | payer MEDICARE, OTHER ==
[~2021-10-10 08:08] MED LIST changes: -Acetaminophen 325 MG Tab PO SCH; -Bisacodyl 5 MG Tab PO PRN; -HYDROmorphone 0.5 MG/0.5 ML Syringe IVPUSH PRN; -Naloxone 0.4 MG/ML SDV IVPUSH PRN; -Ondansetron 4 MG/2 ML SDV IVPUSH PRN; -Pregabalin 25 MG Cap PO SCH; -Sennosides 8.6 MG Tab PO PRN; +Sodium Chloride 0.9% 10 ML Syringe FLUSH SCH; -oxyCODONE ER 10 MG TAB.ER PO SCH
[2021-10-10] MEDS ORDERED: Lidocaine 1% 6 ML ONE (08:24)
[2021-10-10] MEDS ORDERED: Propofol 200 MG/20 ML SDV ONE (08:24)
[2021-10-10 09:40] VITALS: BP 118/56; PULSE 62
== END 2021-10-10 09:50 | disposition home or self-care (01) ==
LOC: JD.SDS 08:08
PROVIDERS: ATTEND Surgery
DX: Z12.11 Encounter for screening for malignant neoplasm of colon (principal); K57.30 Diverticulosis of large intestine without perforation or abscess without bleeding; N40.0 Benign prostatic hyperplasia without lower urinary tract symptoms; E03.9 Hypothyroidism, unspecified; I12.9 Hypertensive chronic kidney disease with stage 1 through stage 4 chronic kidney disease, or unspecified chronic kidney disease; N18.30 Chronic kidney disease, stage 3 unspecified; E11.22 Type 2 diabetes mellitus with diabetic chronic kidney disease; E66.9 Obesity, unspecified; Z79.890 Hormone replacement therapy; Z98.890 Other specified postprocedural states; Z79.899 Other long term (current) drug therapy; Z68.32 Body mass index [BMI] 32.0-32.9, adult
CPT/HCPCS: G0104; J2704; J7120; 00811; 99100